=== PATIENT | male | born 1970 | race Hispanic/Latino ===

== ENCOUNTER 2018-05-27 05:29 | Day surgery (SDC) | payer OTHER ==
[2018-05-24 14:32] VITALS: BMI 37.0
--- NOTE | 2018-05-24 14:36 | HP ---
HISTORY OF PRESENT ILLNESS: Sae Cristina is a 47-year-old male patient who resides at [facility] in [place]. The patient has had a vena cava filter placed on 02/23/2015 for DVT, contraindication to anticoagulation, on 03/19/2015 had removal of the filter. The patient had a decompressive laminectomy on 02/19/[address] Ojeda. The patient now has chronic renal failure, and I have been asked to see him regarding placement of a primary fistula. He has had ultrasound vein mapping revealing veins adequate for fistula and we will plan the left arm primary fistula, possibly a Monica. PAST MEDICAL HISTORY: Chronic kidney disease; history of DVT; history of filter, IVC, placed and removed; history of hydronephrosis; diabetes mellitus, type 2; GERD; BPH; dyslipidemia; pulmonary embolism; schizophrenia; bipolar disorder. PAST SURGICAL HISTORY: Tonsillectomy, lumbar surgery, jaw surgery, wrist surgery, right nasal surgery, facial surgery, cardiac catheterization, inferior vena cava filter placed and removed as noted above. HABITS: He has smoked in the past. Alcohol use, none. ALLERGIES: LATEX AND MORPHINE. MEDICATIONS: 1. Atorvastatin 20 mg a day. 2. Claritin daily. 3. Colace daily. 4. Coreg 3.125 mg twice a day. 5. Dulcolax p.r.n. 6. Eliquis 2.5 mg twice a day. 7. Ferrous sulfate. 8. Flomax 0.4 mg a day. 9. Gabapentin 100 mg three times a day. 10. Hydralazine 50 mg twice a day. 11. Lasix 80 mg twice a day. 12. Levemir 15 units subcu daily. 13. Lexapro 10 mg a day. 14. Lisinopril 20 mg a day. 15. Meperidine p.r.n. 16. Mucinex p.r.n. 17. Multivitamins daily. 18. Protonix 40 mg a day. 19. Sodium bicarb 650 mg twice a day. 20. Tessalon Perles p.r.n. 21. Zofran p.r.n. IMAGING: Echocardiogram, October 2015, normal LV function, 55% EF, mild tricuspid, aortic, and mitral valve regurgitations. PHYSICAL EXAMINATION: VITAL SIGNS: 138/70, 86, 99.7 degrees. LUNGS: Clear to auscultation. CARDIAC: Regular rate and rhythm without murmur or gallop. ABDOMEN: Soft and nontender. EXTREMITIES: Unremarkable. He has a Ram catheter in place. He has palpable radial pulses bilaterally. He has vein mapping as noted above. ASSESSMENT/PLAN: 1. The patient is on anticoagulation. We will hold that until his surgery next week. We will plan left arm primary fistula, possible Monica, outpatient, regional TIVA or anesthesia is recommended. Risks and benefits explained, he consents, questions answered. 2. Chronic Ram catheter. 3. History of pulmonary embolism and deep venous thrombosis. Job ID: [id number]
[2018-05-27 06:50] LABS: #Eosinphils 0.2 thou/uL (0.0-0.7); #Lymphocytes 0.8 thou/uL (1.20-3.40); #Monocytes 0.4 thou/uL (0.11-0.59); #Neutrophils 5.6 thou/uL (1.40-6.50); %Basophils 0.7 % (0.0-1.0); %Lymphocytes 11.1 % (21.0-51.0); %Monocytes 6.2 % (0.0-10.0); Mean Corpuscular HGB CONC 32.3 g/dL (32.0-36.0); Mean Corpuscular Hemoglobin 29.6 pg (27.0-31.0); Mean Corpuscular Volume 91.5 fL (78.0-98.0); Mean Platelet Volume 7.6 fL (7.4-10.4); Platelet Count 202 thou/uL (130-400); RBC Distribution Width 16.6 % (11.5-14.5); Red Blood Cell (RBC) Count 3.05 mill/uL (4.70-6.10)
[2018-05-27] MEDS ORDERED: Heparin 5,000 UNITS/ML VIAL ONE (06:50)
[2018-05-27] MEDS ORDERED: Bupivacaine HCl 0.5%/Epinephrine 1:200,000/PF 30 ml Vial ONE (06:50)
[2018-05-27] MEDS ORDERED: Lidocaine 2% PF 5 ML VIAL ONE (06:50)
[2018-05-27 07:06] LABS: Anion Gap 15 mmol/L (10-20); BUN (Urea Nitrogen) 61 mg/dL (8.9-20.6); Calc. Creatinine Clearance 25 mL/min (70-130); Calcium 7.5 mg/dL (7.8-10.44); Carbon Dioxide 19 mmol/L (22-29); Chloride 111 mmol/L (98-107); Estimated GFR-MDRD 10; Glucose 106 mg/dL (70-105); Potassium 4.2 mmol/L (3.5-5.1); Sodium 141 mmol/L (136-145)
[2018-05-27] MEDS ORDERED: Fentanyl 100 MCG/2 ML VIAL ONE (07:15)
[2018-05-27] MEDS ORDERED: Protamine Sulfate 50 MG/5 ML VIAL ONE (08:38)
--- NOTE | 2018-05-27 10:04 | OP ---
DATE OF PROCEDURE: 05/27/2018 PREOPERATIVE DIAGNOSIS: Chronic kidney disease, not yet started dialysis. POSTOPERATIVE DIAGNOSIS: Chronic kidney disease, not yet started dialysis. PROCEDURE PERFORMED: Exploration of left wrist noting cephalic vein to the wrist inadequate for a fistula. Primary arteriovenous fistula left proximal volar forearm outflow primary for anatomic reasons out the cephalic vein calibrated to 4 mm coronary dilator, secondary outflow basilic vein by retrograde filling and retrograde antecubital vein preserved of excellent caliber. ANESTHESIA: Regional TIVA. DESCRIPTION OF PROCEDURE: The patient was taken to the operating room where under intravenous sedation and regional anesthesia, left upper extremity was prepared with ChloraPrep and draped in routine fashion. Ultrasound vein mapping suggested cephalic vein at the wrist might be adequate for a Monica fistula, thus an incision was made carried down to the skin and subcutaneous tissue, and cephalic vein was noted to be small caliber. Incision was closed with continuous suture of 3-0 Monocryl approximating subcutaneous tissue and skin with subdermal 4-0 Monocryl, and Theresa glue was applied. Incision was made in the proximal volar forearm longitudinally carried down to the skin and subcutaneous tissue, identifying excellent caliber cephalic vein. It was dissected free and perforating branch antecubital vein dissected free. Branches were divided between clips, ligated with 4-0 silk ties, and spatulated over branch point. The patient was given 6000 units of heparin intravenously. There was a smaller communicating branch to the basilic vein. It was ligated. For anatomic reasons, primary outflow was the cephalic vein; although, the retrograde filling would communicate with the basilic vein, which was of good caliber, but was not interrogated. Brachial ulnar and proximal radial artery dissected free and after adequate circulation time and heparin, brachial radial and ulnar arteries were clamped with atraumatic vascular clamp. Longitudinal arteriotomy was made sharply, elongated with Lehman scissors for a 2.5 cm anastomosis. Over branch point, the perforating branch antecubital vein was spatulated and continuous suture of 6-0 Prolene was used for the anastomosis. After completing the anastomosis, vascular clamps were released and there was good flow in the cephalic vein outflow interrogated by Doppler. Good hemostasis was noted. The patient was given 25 mg of protamine intravenously by Anesthesia. Subcutaneous tissue was approximated with 3-0 Monocryl, skin with subdermal 4-0 Monocryl, and Theresa glue applied. Job ID: [id number]
[2018-05-27] MEDS ORDERED: Heparin 10,000 UNITS/ 10 ML VIAL ONE (15:20)
[2018-05-27] MEDS ORDERED: PROPOFOL 200 MG/20 ML VIAL ONE (15:20)
== END 2018-05-27 11:09 | disposition home or self-care (01) ==
LOC: SDC 05:29
PROVIDERS: ATTEND Specialist
PROC: 03180ZD Bypass Left Brachial Artery to Upper Arm Vein, Open Approach (ICD-10-PCS; principal; 2018-05-27)
DX: I12.9 Hypertensive chronic kidney disease with stage 1 through stage 4 chronic kidney disease, or unspecified chronic kidney disease (principal); E11.22 Type 2 diabetes mellitus with diabetic chronic kidney disease; N18.9 Chronic kidney disease, unspecified; F31.9 Bipolar disorder, unspecified; N31.9 Neuromuscular dysfunction of bladder, unspecified; K21.9 Gastro-esophageal reflux disease without esophagitis; E78.5 Hyperlipidemia, unspecified; F20.9 Schizophrenia, unspecified; Z86.718 Personal history of other venous thrombosis and embolism; Z87.891 Personal history of nicotine dependence; Z79.01 Long term (current) use of anticoagulants; Z79.4 Long term (current) use of insulin; Z79.899 Other long term (current) drug therapy; Z88.5 Allergy status to narcotic agent; Z88.6 Allergy status to analgesic agent; Z88.8 Allergy status to other drugs, medicaments and biological substances; Z91.018 Allergy to other foods; Z91.040 Latex allergy status; Z95.818 Presence of other cardiac implants and grafts
CPT/HCPCS: 80048; 85025; J0670; J1644; J2001; J2704; J2720; J3010

== ENCOUNTER 2018-06-07 17:41 | Inpatient (IN) | payer OTHER ==
[2018-06-07 18:39] LABS: #Eosinphils 0.2 thou/uL (0.0-0.7); #Lymphocytes 0.7 thou/uL (1.20-3.40); #Monocytes 0.6 thou/uL (0.11-0.59); #Neutrophils 5.2 thou/uL (1.40-6.50); %Basophils 0.6 % (0.0-1.0); %Eosinophils 2.4 % (0.0-10.0); %Lymphocytes 10.6 % (21.0-51.0); %Monocytes 9.5 % (0.0-10.0); %Neutrophils 76.8 % (42.0-75.0); Hemoglobin 8.7 g/dL (14.0-18.0); Mean Corpuscular HGB CONC 31.9 g/dL (32.0-36.0); Mean Platelet Volume 7.8 fL (7.4-10.4); Platelet Count 236 thou/uL (130-400); RBC Distribution Width 17.4 % (11.5-14.5); Red Blood Cell (RBC) Count 2.91 mill/uL (4.70-6.10); White Blood Cell (WBC) Count 6.8 thou/uL (4.8-10.8)
[2018-06-07 18:51] LABS: ALT (SGPT) 7 U/L (8-55); AST (SGOT) 13 U/L (5-34); Albumin 3.2 g/dL (3.5-5.0); Alkaline Phosphatase 238 U/L (40-150); Anion Gap 20 mmol/L (10-20); BUN (Urea Nitrogen) 100 mg/dL (8.9-20.6); Bilirubin, Total 0.5 mg/dL (0.2-1.2); Calc. Creatinine Clearance 0 mL/min (70-130); Calcium 7.3 mg/dL (7.8-10.44); Carbon Dioxide 13 mmol/L (22-29); Chloride 109 mmol/L (98-107); Estimated GFR-MDRD 6; Globulin 3.5 g/dL (2.4-3.5); Glucose 146 mg/dL (70-105); Lipase 32 U/L (8-78); Potassium 6.1 mmol/L (3.5-5.1); Protein, Total 6.7 g/dL (6.0-8.3); Sodium 136 mmol/L (136-145)
[2018-06-07 19:16] LABS: CKMB 20.9 ng/mL (0-6.6)
[2018-06-07] MEDS ORDERED: Calcium Chloride 1 GM/10 ML Abboject SYRINGE ONE (19:43)
[2018-06-07] MEDS ORDERED: Dextrose 50% Abboject 50 ML SYRINGE ONE (19:43)
[2018-06-07] MEDS ORDERED: Sodium Bicarb 50 MEQ/50 ML VIAL ONE (19:43)
[2018-06-07] MEDS ORDERED: Insulin Regular 300 UNITS/3 ML VIAL ONE (19:44)
[2018-06-07] MEDS ORDERED: Sodium Bicarbonate 150 MEQ in Dextrose 5% in Water 1,000 ML IV SCH (19:45)
--- NOTE | 2018-06-07 19:48 | RAD ---
CHEST ONE VIEW: 06/07/18 HISTORY: Chest pain. COMPARISON: 02/03/18. FINDINGS: The cardiac silhouette is magnified by projection. Pulmonary vasculature is engorged. Mediastinum is midline. No lobar consolidation or evidence of pneumothorax. religious assistant leads overlie the chest. IMPRESSION: Pulmonary vascular congestion, similar in appearance to the previous exam. POS: BST
[2018-06-07] MEDS ORDERED: Sodium Bicarbonate 150 MEQ in Dextrose 5% in Water 1,000 ML IVP SCH (22:15)
--- NOTE | 2018-06-07 22:40 | CON ---
DATE OF CONSULTATION: 06/07/2018 REASON FOR CONSULTATION: Hyperkalemia. HISTORY OF PRESENTING ILLNESS: This is a very pleasant 48-year-old gentleman with diabetes mellitus, history of CKD and progressive chronic kidney disease stage 5 with a history of dialysis a few years ago, presented to the hospital with abdominal pain, nausea, and vomiting. The patient was noted to have hyperkalemia and a potassium of 6.1, so I was consulted. His BUN was 100 swelling and had generalized swelling. The patient can give no further history. PAST MEDICAL HISTORY: Significant for hypertension, anemia, AV fistula, tunneled dialysis catheter, history of Charcot-Oralia tooth disease, history of obstructive uropathy, history of bipolar disorder, history of cardiac catheterization, history of DVT, history of GERD, history of pulmonary embolism, history of tonsillectomy , lumbar spine surgery, jaw surgery, wrist surgery, cardiac catheterization, inferior vena cava filter. SOCIAL HISTORY: No alcohol or drug use. FAMILY HISTORY: Negative for ESRD. ALLERGIES: REVIEWED. HOME MEDICATIONS: Reviewed. REVIEW OF SYSTEMS: Unobtainable. PHYSICAL EXAMINATION: GENERAL: The patient is awake, alert. VITAL SIGNS: Afebrile, pulse 75, breathing 16, blood pressure 135/90. GENERAL APPEARANCE AND MENTAL STATUS: Fair. HEAD/NECK: Normocephalic. Atraumatic. EYES: EOMI. No deformity. EARS: Clear. No ulcers. NOSE: Intact. No lesions. MOUTH: Clear. No discharge. THROAT: Clear. No exudate. LUNGS: Clear. No crackles. CARDIAC: S1, S2. No rub. ABDOMEN: Benign. Bowel sounds positive. GENITALIA/RECTUM: Ram absent. BACK/EXTREMITIES: Lower extremities have edema. NEUROLOGICAL: Alert and motor intact. SKIN: LYMPHATICS: LABORATORY DATA: Labs show potassium 6.1, bicarb 13. IMPRESSION AND PLAN: 1. Chronic kidney disease stage 6. We will plan urgent hemodialysis. 2. Hypertension, stable. 3. Anemia. No indication for transfusion, Epogen. 4. Metabolic acidosis. Plan dialysis. 5. Hyperkalemia. Plan dialysis. Risks versus benefits of dialysis were discussed and the dialysis nurse was called. Job ID: [id number] [facility]
[2018-06-07 23:19] LABS: HBSAg Index 0.18 S/CO (0-0.99); Hep B Surf Ag Non-Reactive S/CO (NonReactive)
--- NOTE | 2018-06-08 11:47 | PRG ---
DATE OF SERVICE: 06/08/2018 SUBJECTIVE: A 48-year-old gentleman being seen for end-stage renal disease. The patient denies any nausea, vomiting, or chest pain. OBJECTIVE: CONSTITUTIONAL: The patient is awake and alert. VITAL SIGNS: Afebrile. Pulse 84, breathing 16, blood pressure 158/88. GENERAL APPEARANCE AND MENTAL STATUS: Fair. HEAD/NECK: Normocephalic. Atraumatic. EYES: EOMI. No deformity. EARS: Clear. No ulcers. NOSE: Intact. No lesions. MOUTH: Clear. No discharge. THROAT: Clear. No exudate. LUNGS: Clear. No crackles. CARDIAC: S1, S2. No rub. ABDOMEN: Benign. Bowel sounds positive. GENITALIA/RECTUM: Ram absent. BACK/EXTREMITIES: Edema 0+. NEUROLOGICAL: Alert and motor intact. SKIN: LYMPHATICS: LABORATORY DATA: Labs show hemoglobin of 8.7. Creatinine is pending. ASSESSMENT: 1. Stage 6 chronic kidney disease, continue dialysis. 2. Hypertension, stable. 3. Anemia, stable. 4. Hyperkalemia. Check potassium. Job ID: [id number]
[2018-06-08] MEDS ORDERED: Heparin 10,000 UNITS/ 10 ML VIAL ONE ×2 (15:00)
[2018-06-08] MEDS ORDERED: Dextrose 5% in Water 1,000 ML IV PRN (15:38)
[2018-06-08] MEDS ORDERED: Dextrose 50% Abboject 50 ML SYRINGE IVP PRN (15:38)
[2018-06-08 16:04] LABS: Hemoglobin 8.4 g/dL (14.0-18.0)
[2018-06-08 16:25] LABS: ALT (SGPT) 7 U/L (8-55); AST (SGOT) 11 U/L (5-34); Alkaline Phosphatase 212 U/L (40-150); Anion Gap 20 mmol/L (10-20); BUN (Urea Nitrogen) 81 mg/dL (8.9-20.6); Bilirubin, Total 0.4 mg/dL (0.2-1.2); Calc. Creatinine Clearance 22 mL/min (70-130); Calcium 7.5 mg/dL (7.8-10.44); Carbon Dioxide 20 mmol/L (22-29); Chloride 104 mmol/L (98-107); Estimated GFR-MDRD 7; Globulin 3.6 g/dL (2.4-3.5); Glucose 214 mg/dL (70-105); Potassium 4.5 mmol/L (3.5-5.1); Protein, Total 6.6 g/dL (6.0-8.3); Sodium 139 mmol/L (136-145)
[2018-06-08 18:46] LABS: Troponin I 0.054 ng/mL (< 0.028)
[2018-06-08] MEDS ORDERED: Acetaminophen/Codeine 30-300mg Tablet PO PRN ×2 (20:02)
[2018-06-08] MEDS ORDERED: Acetaminophen 500 MG TAB PO PRN (20:04)
[2018-06-08] MEDS ORDERED: Bisacodyl 5 MG TAB PO PRN (20:09)
[2018-06-08] MEDS ORDERED: Benzonatate 100 MG CAP PO PRN (20:09)
[2018-06-08] MEDS ORDERED: Fluticasone Propionate Nasal Spray 16 gm Bottle NASAL PRN (20:12)
[2018-06-08] MEDS ORDERED: Guaifenesin DM 100-10/5 ML UDCUP PO PRN (20:13)
[2018-06-08] MEDS ORDERED: guaiFENesin/DM ER PO PRN (20:13)
[2018-06-08] MEDS ORDERED: Loperamide HCl 2 MG CAP PO PRN (20:21)
[2018-06-08] MEDS ORDERED: MENTHOL (BIOFREEZE 4% GEL) TOP PRN (20:22)
[2018-06-08] MEDS ORDERED: Ondansetron ODT 4 MG TAB PO PRN (20:24)
[2018-06-08] MEDS ORDERED: Polyethylene Glycol 3350 17 GM Packet PO PRN (20:25)
--- NOTE | 2018-06-08 20:40 | HP ---
CHIEF COMPLAINT: Chest pain. HISTORY OF PRESENT ILLNESS: Mr. Cristina is a 48-year-old male with past medical history of chronic kidney disease stage 5 as well as diabetes mellitus poorly controlled and hypertension, who was sent from the correction because of chest pain. The patient is complaining of pain in the retrosternal area, sharp in nature, not associated with any diaphoresis. No nausea or vomiting. No shortness of breath. His pain lasted a few minutes, so he was sent to the emergency room for evaluation. By the time he was in the ER, pain resolved. In fact, the chest wall was tender and he has evaluation. He was found to have worsening of his renal function with hyperkalemia. The patient also complained of abdominal discomfort in the correction, but in the ER, it got resolved. The patient received D5W, insulin, calcium chloride, and sodium bicarbonate for his hyperkalemia. The patient had dialysis catheter placed recently for future hemodialysis. The patient is admitted for further evaluation for possible hemodialysis. PAST MEDICAL HISTORY: 1. Diabetes mellitus. 2. Hyperlipidemia. 3. End-stage renal disease. 4. History of DVT. 5. Gastroesophageal reflux disease. 6. Benign prostatic hypertrophy. 7. History of pulmonary embolism. 8. History of pancreatitis. 9. Schizophrenia, bipolar. PAST SURGICAL HISTORY: Status post tonsillectomy, status post lumbar spinal surgery, status post jaw surgery, status post cardiac cath. CURRENT MEDICATIONS: 1. Eliquis 2.5 mg b.i.d. 2. Dulcolax p.r.n. 3. Tylenol No. 3 one q.i.d. p.r.n. 4. Lipitor 20 mg daily. 5. Tessalon Perles p.r.n. t.i.d. 6. Lexapro 10 mg daily. 7. Ferrous sulfate 325 mg daily. 8. Flonase nasal spray daily. 9. Lasix 80 b.i.d. 10. Gabapentin 100 mg t.i.d. 11. Mucinex b.i.d. 12. Humalog insulin sliding scale. 13. Hydralazine 50 mg t.i.d. 14. Levemir insulin 15 units at bedtime. 15. Floranex two tablets b.i.d. 16. Lisinopril 20 mg daily. 17. Claritin daily. 18. Imodium p.r.n. 19. Zofran p.r.n. 20. Protonix 40 mg daily. 21. Multivitamin one daily. 22. MiraLAX 17 g daily. 23. Seroquel 50 mg b.i.d. 24. Simethicone 80 mg t.i.d. 25. Sodium bicarbonate 650 b.i.d. 26. Carafate 1 g b.i.d. 27. Flomax 0.4 mg daily. ALLERGIES: IBUPROFEN, LATEX, METFORMIN, AND MORPHINE. FAMILY HISTORY: Nothing significant. SOCIAL HISTORY: The patient lives in [facility]. History of alcohol intake. History of polysubstance abuse in the past. Smokes about half a pack daily. REVIEW OF SYSTEMS: CARDIOVASCULAR: Has chest pain. No shortness of breath. RESPIRATORY: No fever or cough. GASTROINTESTINAL: No nausea or vomiting. No abdominal pain. Has abdominal discomfort. CENTRAL NERVOUS SYSTEM: No headache, no dizziness. PHYSICAL EXAMINATION: GENERAL: The patient is alert, awake, oriented x3. VITAL SIGNS: Temperature 98, pulse is 85, respiratory rate 20, and blood pressure 140/80. HEENT: Head is normocephalic and atraumatic. Pupils are equal and reactive. Nasopharynx is pale and dry. Hard and soft palpate, no lesions. SKIN: Turgor decreased. NECK: Supple. No JVD. LUNGS: Bilateral air entry with no rales and no rhonchi. HEART: S1 and S2 regular. ABDOMEN: Mildly distended, but soft and nontender. No organomegaly. Bowel sounds are present. RECTAL: No symptoms. CENTRAL NERVOUS SYSTEM: No focal deficits. LABORATORY DATA: CBC shows WBC 6.8, hemoglobin 8.7, hematocrit 27, and platelets 236. Metabolic panel; sodium 136, potassium 6, chloride 109, CO2 of 13, BUN 100 , creatinine 9.4, glucose 146. CK-MB 20, troponin I 0.045. BNP 1005. IMAGING STUDIES: Chest x-ray shows mild pulmonary vascular congestion. Heart acute. EKG showed normal sinus rhythm, no acute ST-T changes seen. ASSESSMENT: 1. Chest pain, rule out myocardial infarction. 2. Hyperkalemia. 3. End-stage renal disease. 4. Hypertension. 5. Diabetes mellitus. 6. Hyperlipidemia. 7. History of deep venous thrombosis. 8. History of pulmonary embolism. PLAN: 1. Vital signs q.4 hours. 2. Activities, as tolerated. 3. Allergies, multiple include ibuprofen, latex, metformin. 4. Diet, renal and ADA. 5. Continue correction medications. 6. Accu-Cheks before meals and at bedtime. Sliding scale mild with regular insulin. 7. Troponin I q.6 hours x2. 8. Nephrology consult for possible hemodialysis. Job ID: [id number] [facility]TD[facility]
[2018-06-08] MEDS: Acetaminophen 500 MG TAB PO PRN (21:15)
[2018-06-08] MEDS: Atorvastatin Calcium 20 MG TAB PO SCH (21:16)
[2018-06-08] MEDS: Gabapentin 100 MG CAP PO SCH (21:16)
[2018-06-08] MEDS: Docusate 100 MG CAP PO SCH (21:16)
[2018-06-08] MEDS: Carvedilol 3.125 MG TAB PO SCH (21:16)
[2018-06-08] MEDS: hydrALAZINE 25 MG TAB PO SCH (21:16)
[2018-06-08] MEDS: Lactinex Tablet PO SCH (21:18)
[2018-06-08] MEDS: Sucralfate 1 GM TAB PO SCH (21:18)
[2018-06-08] MEDS: Tamsulosin HCl 0.4 MG CAP PO SCH (21:18)
[2018-06-08] MEDS: Simethicone Chewable 80 MG TAB PO SCH (21:18)
[2018-06-08] MEDS: Sodium Bicarbonate Tab 325 MG TAB PO SCH (21:18)
[2018-06-08] MEDS: Apixaban 2.5 MG TAB PO SCH (21:50)
[2018-06-08] MEDS: Insulin Glargine 15 UNITS in Pre-Filled Syringe 1 EACH SC SCH (21:50)
[2018-06-09 00:12] LABS: Troponin I 0.055 ng/mL (< 0.028)
[2018-06-09 06:11] LABS: #Eosinphils 0.2 thou/uL (0.0-0.7); #Monocytes 0.7 thou/uL (0.11-0.59); #Neutrophils 3.9 thou/uL (1.40-6.50); %Basophils 0.8 % (0.0-1.0); %Eosinophils 3.9 % (0.0-10.0); %Lymphocytes 17.6 % (21.0-51.0); %Monocytes 11.9 % (0.0-10.0); %Neutrophils 65.9 % (42.0-75.0); Hemoglobin 8.3 g/dL (14.0-18.0); Mean Corpuscular HGB CONC 32.7 g/dL (32.0-36.0); Mean Corpuscular Hemoglobin 30.6 pg (27.0-31.0); Mean Corpuscular Volume 93.6 fL (78.0-98.0); Mean Platelet Volume 7.7 fL (7.4-10.4); Platelet Count 217 thou/uL (130-400); RBC Distribution Width 17.1 % (11.5-14.5); Red Blood Cell (RBC) Count 2.71 mill/uL (4.70-6.10); White Blood Cell (WBC) Count 5.8 thou/uL (4.8-10.8)
[2018-06-09 06:18] LABS: Hemoglobin A1c 7.8 % (4.0-6.0)
[2018-06-09 06:30] LABS: ALT (SGPT) Less than 7 U/L (8-55); AST (SGOT) 14 U/L (5-34); Albumin 2.8 g/dL (3.5-5.0); Alkaline Phosphatase 191 U/L (40-150); Anion Gap 18 mmol/L (10-20); BUN (Urea Nitrogen) 62 mg/dL (8.9-20.6); Bilirubin, Total 0.4 mg/dL (0.2-1.2); Calc. Creatinine Clearance 27 mL/min (70-130); Calcium 7.5 mg/dL (7.8-10.44); Carbon Dioxide 19 mmol/L (22-29); Chloride 105 mmol/L (98-107); Estimated GFR-MDRD 9; Globulin 3.5 g/dL (2.4-3.5); Glucose 129 mg/dL (70-105); Potassium 3.9 mmol/L (3.5-5.1); Protein, Total 6.3 g/dL (6.0-8.3); Sodium 138 mmol/L (136-145)
[2018-06-09] MEDS ORDERED: Heparin 1,000 UNITS/ML VIAL ONE (11:11)
--- NOTE | 2018-06-09 11:40 | PRG ---
DATE OF SERVICE: 06/09/2018 SUBJECTIVE: This is a 48-year-old gentleman being seen for end-stage kidney disease. The patient denied nausea, vomiting, or chest pain. OBJECTIVE: CONSTITUTIONAL: On examination, the patient is awake, alert. VITAL SIGNS: Afebrile. Pulse 75, breathing 16, blood pressure 137/81. GENERAL APPEARANCE AND MENTAL STATUS: Fair. HEAD/NECK: Normocephalic. Atraumatic. EYES: EOMI. No deformity. EARS: Clear. No ulcers. NOSE: Intact. No lesions. MOUTH: Clear. No discharge. THROAT: Clear. No exudate. LUNGS: Clear. No crackles. CARDIAC: S1, S2. No rub. ABDOMEN: Benign. Bowel sounds positive. GENITALIA/RECTUM: Ram absent. BACK/EXTREMITIES: Lower extremities have edema. NEUROLOGICAL: Alert and motor intact. SKIN: LYMPHATICS: LABORATORY DATA: Potassium is 3.9. ASSESSMENT AND PLAN: 1. Stage 6 chronic kidney disease, plan dialysis. 2. Hyperkalemia. Plan dialysis. 3. Anemia, stable. 4. Edema. 5. Congestive heart failure. Plan dialysis. Job ID: [id number]
[2018-06-09] MEDS: Gabapentin 100 MG CAP PO SCH ×3 (12:13→21:20)
[2018-06-09] MEDS: Docusate 100 MG CAP PO SCH ×2 (12:13→21:20)
[2018-06-09] MEDS: Simethicone Chewable 80 MG TAB PO SCH ×3 (12:13→21:19)
[2018-06-09] MEDS: Loratadine 10 MG TAB PO SCH (16:18)
[2018-06-09] MEDS: Escitalopram Oxalate 10 mg Tablet PO SCH (16:18)
[2018-06-09] MEDS: Multivitamin W/ Minerals 1 TAB PO SCH (16:18)
[2018-06-09] MEDS: Lisinopril 20 MG TAB PO SCH (16:18)
[2018-06-09] MEDS: Ferrous Sulfate 325 MG TAB PO SCH (16:18)
[2018-06-09] MEDS: Carvedilol 3.125 MG TAB PO SCH ×2 (16:30→21:20)
[2018-06-09] MEDS: hydrALAZINE 25 MG TAB PO SCH ×2 (16:30→21:19)
[2018-06-09] MEDS: Sodium Bicarbonate Tab 325 MG TAB PO SCH ×2 (16:30→21:19)
[2018-06-09] MEDS: Apixaban 2.5 MG TAB PO SCH ×2 (16:30→21:18)
[2018-06-09] MEDS: Sucralfate 1 GM TAB PO SCH ×2 (16:30→22:28)
[2018-06-09] MEDS: Lactinex Tablet PO SCH ×2 (16:30→21:19)
[2018-06-09] MEDS: Atorvastatin Calcium 20 MG TAB PO SCH (21:19)
[2018-06-09] MEDS: Milk Of Magnesia 30 ML UDCUP PO SCH (21:20)
[2018-06-09] MEDS: Tamsulosin HCl 0.4 MG CAP PO SCH (21:20)
[2018-06-09] MEDS: Insulin Glargine 15 UNITS in Pre-Filled Syringe 1 EACH SC SCH (21:24)
[2018-06-09] MEDS: Acetaminophen 500 MG TAB PO PRN (22:33)
[2018-06-10] MEDS: Lactinex Tablet PO SCH ×2 (07:50→20:06)
[2018-06-10] MEDS: Carvedilol 3.125 MG TAB PO SCH ×2 (07:51→20:04)
[2018-06-10] MEDS: Escitalopram Oxalate 10 mg Tablet PO SCH (07:51)
[2018-06-10] MEDS: hydrALAZINE 25 MG TAB PO SCH ×2 (07:51→20:04)
[2018-06-10] MEDS: Ferrous Sulfate 325 MG TAB PO SCH (07:51)
[2018-06-10] MEDS: Simethicone Chewable 80 MG TAB PO SCH ×3 (07:52→20:06)
[2018-06-10] MEDS: Gabapentin 100 MG CAP PO SCH ×3 (07:52→20:04)
[2018-06-10] MEDS: Sodium Bicarbonate Tab 325 MG TAB PO SCH ×2 (07:52→20:07)
[2018-06-10] MEDS: Multivitamin W/ Minerals 1 TAB PO SCH (07:53)
[2018-06-10] MEDS: Docusate 100 MG CAP PO SCH ×2 (07:53→20:04)
[2018-06-10] MEDS: Apixaban 2.5 MG TAB PO SCH ×2 (07:53→20:04)
[2018-06-10] MEDS: Loratadine 10 MG TAB PO SCH (07:55)
[2018-06-10] MEDS: Sucralfate 1 GM TAB PO SCH ×2 (07:55→20:07)
[2018-06-10] MEDS: Milk Of Magnesia 30 ML UDCUP PO SCH ×2 (07:55→20:06)
[2018-06-10] MEDS: Lisinopril 20 MG TAB PO SCH (07:55)
--- NOTE | 2018-06-10 09:56 | PRG ---
DATE OF SERVICE: 06/10/2018 SUBJECTIVE: A 48-year-old gentleman being seen for end-stage renal disease. The patient denies any nausea, vomiting, or chest pain. OBJECTIVE: GENERAL: The patient is awake and alert. VITAL SIGNS: Afebrile, pulse 76, breathing 16, blood pressure 125/82. GENERAL APPEARANCE AND MENTAL STATUS: Fair. HEAD/NECK: Normocephalic. Atraumatic. EYES: EOMI. No deformity. EARS: Clear. No ulcers. NOSE: Intact. No lesions. MOUTH: Clear. No discharge. THROAT: Clear. No exudate. LUNGS: Clear. No crackles. CARDIAC: S1, S2. No rub. ABDOMEN: Benign. Bowel sounds positive. GENITALIA/RECTUM: Ram absent. BACK/EXTREMITIES: Edema 0+. NEUROLOGICAL: Alert and motor intact. LABORATORY DATA: Hemoglobin 8.3. ASSESSMENT AND PLAN: 1. Stage 6 chronic kidney disease, continue hemodialysis. 2. Hypertension, stable. 3. Anemia. Continue Epogen. 4. Congestive heart failure. Plan diuresis. Job ID: [id number]
[2018-06-10] MEDS: Atorvastatin Calcium 20 MG TAB PO SCH (20:04)
[2018-06-10] MEDS: Insulin Glargine 15 UNITS in Pre-Filled Syringe 1 EACH SC SCH (20:05)
[2018-06-10] MEDS: Tamsulosin HCl 0.4 MG CAP PO SCH (20:07)
[2018-06-11] MEDS: Insulin Regular 300 UNITS/3 ML VIAL SC PRN ×3 (06:03→20:20)
[2018-06-11] MEDS: Milk Of Magnesia 30 ML UDCUP PO SCH ×2 (09:51→20:18)
[2018-06-11] MEDS: Simethicone Chewable 80 MG TAB PO SCH ×3 (09:51→20:18)
[2018-06-11] MEDS: Apixaban 2.5 MG TAB PO SCH ×2 (09:52→20:19)
[2018-06-11] MEDS: Sodium Bicarbonate Tab 325 MG TAB PO SCH ×2 (09:52→20:17)
[2018-06-11] MEDS: Lisinopril 20 MG TAB PO SCH (09:52)
[2018-06-11] MEDS: Lactinex Tablet PO SCH ×2 (09:52→20:17)
[2018-06-11] MEDS: Gabapentin 100 MG CAP PO SCH ×3 (09:52→20:18)
[2018-06-11] MEDS: Docusate 100 MG CAP PO SCH ×2 (09:53→20:18)
[2018-06-11] MEDS: Escitalopram Oxalate 10 mg Tablet PO SCH (09:53)
[2018-06-11] MEDS: Carvedilol 3.125 MG TAB PO SCH ×2 (09:53→20:18)
[2018-06-11] MEDS: Multivitamin W/ Minerals 1 TAB PO SCH (09:53)
[2018-06-11] MEDS: Sucralfate 1 GM TAB PO SCH ×2 (09:53→20:19)
[2018-06-11] MEDS: Ferrous Sulfate 325 MG TAB PO SCH (09:53)
[2018-06-11] MEDS: hydrALAZINE 25 MG TAB PO SCH ×2 (09:54→20:17)
[2018-06-11] MEDS: Loratadine 10 MG TAB PO SCH (09:54)
[2018-06-11] MEDS ORDERED: Epoetin (ESRD) 10,000 UNITS/ML VIAL SC SCH (11:15)
--- NOTE | 2018-06-11 11:48 | PRG ---
DATE OF SERVICE: 06/11/2018 SUBJECTIVE: This is a 48-year-old gentleman, being seen for end-stage kidney disease. The patient denied nausea, vomiting, or chest pain. OBJECTIVE: CONSTITUTIONAL: On examination, the patient is awake, alert. VITAL SIGNS: Afebrile, pulse , breathing 16, blood pressure 147/82. GENERAL APPEARANCE AND MENTAL STATUS: Fair. HEAD/NECK: Normocephalic. Atraumatic. EYES: EOMI. No deformity. EARS: Clear. No ulcers. NOSE: Intact. No lesions. MOUTH: Clear. No discharge. THROAT: Clear. No exudate. LUNGS: Clear. No crackles. CARDIAC: S1, S2. No rub. ABDOMEN: Benign. Bowel sounds positive. GENITALIA/RECTUM: Ram absent. BACK/EXTREMITIES: Edema 0+. NEUROLOGICAL: Alert and motor intact. SKIN: LYMPHATICS: LABORATORY DATA: Reviewed. ASSESSMENT AND PLAN: 1. Stage 6 chronic kidney disease. Continue dialysis . 2. Hypertension, stable. 3. Anemia, stable. 4. Medications based on GFR appropriate. Job ID: [id number]
[2018-06-11 15:47] LABS: #Eosinphils 0.1 thou/uL (0.0-0.7); #Lymphocytes 0.9 thou/uL (1.20-3.40); #Monocytes 0.6 thou/uL (0.11-0.59); #Neutrophils 5.3 thou/uL (1.40-6.50); %Basophils 0.3 % (0.0-1.0); %Eosinophils 2.1 % (0.0-10.0); %Lymphocytes 13.1 % (21.0-51.0); %Monocytes 8.5 % (0.0-10.0); Hemoglobin 8.5 g/dL (14.0-18.0); Mean Corpuscular HGB CONC 32.2 g/dL (32.0-36.0); Mean Corpuscular Hemoglobin 29.8 pg (27.0-31.0); Mean Corpuscular Volume 92.7 fL (78.0-98.0); Platelet Count 202 thou/uL (130-400); RBC Distribution Width 16.7 % (11.5-14.5); Red Blood Cell (RBC) Count 2.85 mill/uL (4.70-6.10); White Blood Cell (WBC) Count 6.9 thou/uL (4.8-10.8)
[2018-06-11 16:03] LABS: Anion Gap 12 mmol/L (10-20); BUN (Urea Nitrogen) 33 mg/dL (8.9-20.6); Calc. Creatinine Clearance 36 mL/min (70-130); Calcium 7.8 mg/dL (7.8-10.44); Carbon Dioxide 30 mmol/L (22-29); Chloride 100 mmol/L (98-107); Estimated GFR-MDRD 14; Glucose 171 mg/dL (70-105); Potassium 3.7 mmol/L (3.5-5.1); Sodium 138 mmol/L (136-145)
[2018-06-11] MEDS: Atorvastatin Calcium 20 MG TAB PO SCH (20:18)
[2018-06-11] MEDS: Tamsulosin HCl 0.4 MG CAP PO SCH (20:18)
[2018-06-11] MEDS: Insulin Glargine 15 UNITS in Pre-Filled Syringe 1 EACH SC SCH (20:19)
[2018-06-12] MEDS: Multivitamin W/ Minerals 1 TAB PO SCH (09:20)
[2018-06-12] MEDS: Milk Of Magnesia 30 ML UDCUP PO SCH ×2 (09:20→20:52)
[2018-06-12] MEDS: Gabapentin 100 MG CAP PO SCH ×3 (09:20→20:48)
[2018-06-12] MEDS: hydrALAZINE 25 MG TAB PO SCH ×2 (09:20→20:48)
[2018-06-12] MEDS: Lactinex Tablet PO SCH ×2 (09:21→20:47)
[2018-06-12] MEDS: Sodium Bicarbonate Tab 325 MG TAB PO SCH ×2 (09:21→20:47)
[2018-06-12] MEDS: Carvedilol 3.125 MG TAB PO SCH ×2 (09:22→20:48)
[2018-06-12] MEDS: Sucralfate 1 GM TAB PO SCH ×2 (09:22→20:46)
[2018-06-12] MEDS: Apixaban 2.5 MG TAB PO SCH ×2 (09:23→20:46)
[2018-06-12] MEDS: Simethicone Chewable 80 MG TAB PO SCH ×3 (09:23→20:52)
[2018-06-12] MEDS: Escitalopram Oxalate 10 mg Tablet PO SCH (09:23)
[2018-06-12] MEDS: Docusate 100 MG CAP PO SCH ×2 (09:23→20:52)
[2018-06-12] MEDS: Loratadine 10 MG TAB PO SCH (09:23)
[2018-06-12] MEDS: Ferrous Sulfate 325 MG TAB PO SCH (09:23)
[2018-06-12] MEDS: Lisinopril 20 MG TAB PO SCH (09:23)
--- NOTE | 2018-06-12 11:49 | PRG ---
DATE OF SERVICE: 06/12/2018 SUBJECTIVE: Patient was seen and examined at bedside and overnight events noted. Patient denies any shortness of breath or chest pain or palpitation. No history of nausea or vomiting or diarrhea or fever or chills or cramps. OBJECTIVE: GENERAL: This is a well-built male, in no apparent distress. VITAL SIGNS: Temperature 99.3. Heart rate 84. Respiratory rate 20. Blood pressure 148/85. HEENT: Atraumatic, normocephalic. Oral mucosa is moist NECK: Supple. CARDIOVASCULAR: S1, S2 heard. Rate and rhythm regular. RESPIRATORY: Clear to auscultation. GASTROINTESTINAL: Abdomen is soft. MUSCULOSKELETAL: No tenderness. No edema. DERMATOLOGIC: No skin rash. NEUROLOGIC: Alert and awake and oriented X3. No focal neurologic deficits. Moving all the extremities. PSYCHIATRIC: Mood and affect normal. LABORATORY DATA: No labs done today. ASSESSMENT AND PLAN: 1. End-stage renal disease. Continue on hemodialysis as tolerated. Follow with Case Management. 2. Hypertension. 3. Anemia. 4. Edema. Plan is to continue dialysis as tolerated. Job ID: [id number]
[2018-06-12] MEDS: Insulin Regular 300 UNITS/3 ML VIAL SC PRN ×3 (13:59→20:54)
[2018-06-12] MEDS: Tamsulosin HCl 0.4 MG CAP PO SCH (20:46)
[2018-06-12] MEDS: Atorvastatin Calcium 20 MG TAB PO SCH (20:48)
[2018-06-12] MEDS: Insulin Glargine 15 UNITS in Pre-Filled Syringe 1 EACH SC SCH (20:53)
[2018-06-13 05:46] LABS: Anion Gap 12 mmol/L (10-20); BUN (Urea Nitrogen) 37 mg/dL (8.9-20.6); Calc. Creatinine Clearance 32 mL/min (70-130); Calcium 7.6 mg/dL (7.8-10.44); Carbon Dioxide 29 mmol/L (22-29); Chloride 100 mmol/L (98-107); Estimated GFR-MDRD 13; Glucose 147 mg/dL (70-105); Potassium 4.2 mmol/L (3.5-5.1); Sodium 137 mmol/L (136-145)
[2018-06-13] MEDS: Insulin Regular 300 UNITS/3 ML VIAL SC PRN ×2 (06:10→21:10)
[2018-06-13] MEDS: Lisinopril 20 MG TAB PO SCH (07:50)
[2018-06-13] MEDS: Gabapentin 100 MG CAP PO SCH ×3 (07:50→21:08)
[2018-06-13] MEDS: Docusate 100 MG CAP PO SCH ×2 (07:51→21:20)
[2018-06-13] MEDS: Carvedilol 3.125 MG TAB PO SCH ×2 (07:51→21:20)
[2018-06-13] MEDS: Ferrous Sulfate 325 MG TAB PO SCH (07:51)
[2018-06-13] MEDS: Loratadine 10 MG TAB PO SCH (07:51)
[2018-06-13] MEDS: Lactinex Tablet PO SCH ×2 (07:51→21:07)
[2018-06-13] MEDS: Escitalopram Oxalate 10 mg Tablet PO SCH (07:51)
[2018-06-13] MEDS: hydrALAZINE 25 MG TAB PO SCH ×2 (07:52→21:05)
[2018-06-13] MEDS: Sodium Bicarbonate Tab 325 MG TAB PO SCH ×2 (07:52→21:06)
[2018-06-13] MEDS: Simethicone Chewable 80 MG TAB PO SCH ×3 (07:52→21:07)
[2018-06-13] MEDS: Multivitamin W/ Minerals 1 TAB PO SCH (07:52)
[2018-06-13] MEDS: Apixaban 2.5 MG TAB PO SCH ×2 (07:53→21:09)
[2018-06-13] MEDS: Milk Of Magnesia 30 ML UDCUP PO SCH ×2 (07:53→21:20)
[2018-06-13] MEDS: Sucralfate 1 GM TAB PO SCH ×2 (07:53→21:09)
--- NOTE | 2018-06-13 10:51 | PRG ---
DATE OF SERVICE: 06/13/2018 SUBJECTIVE: Patient was seen and examined at bedside and overnight events noted. Patient denies any shortness of breath or chest pain or palpitation. No history of nausea or vomiting or diarrhea or fever or chills or cramps. OBJECTIVE: GENERAL: This is a well-built male in no apparent distress. VITAL SIGNS: Temperature 98.7. Pulse 90. Respirations 22. Blood pressure 131/80. HEENT: Atraumatic, normocephalic. Oral mucosa is moist NECK: Supple. CARDIOVASCULAR: S1, S2 heard. Rate and rhythm regular. RESPIRATORY: Clear to auscultation. GASTROINTESTINAL: Abdomen is soft. MUSCULOSKELETAL: No tenderness. No edema. DERMATOLOGIC: No skin rash. NEUROLOGIC: Alert and awake and oriented X3. No focal neurologic deficits. Moving all the extremities. PSYCHIATRIC: Mood and affect normal. LABORATORY DATA: Potassium is 4.2, BUN is 37, creatinine is 4.9. ASSESSMENT AND PLAN: 1. End-stage renal disease. Continue hemodialysis as tolerated. 2. Follow with Case Management for outpatient placement. 3. Hypertension, stable. 4. Edema. Remove fluid with dialysis. 5. Anemia. We will monitor hemoglobin. 6. Continue Epogen with dialysis. Job ID: [id number]
[2018-06-13 13:18] LABS: HBSAg Index 0.34 S/CO (0-0.99); Hep B Core Total Ab Non-Reactive (NonReactive); Hep B Core Total Index 0.15 S/CO (0-0.79); Hep B Surf Ag Non-Reactive S/CO (NonReactive); Hep C IgG Ab Non-Reactive (NonReactive); Hep C Index 0.07 S/CO (0-0.79)
[2018-06-13 13:25] LABS: HBSAB Concentration 15.14 mIU/mL; Hep B Surf AB Reactive (NonReactive)
[2018-06-13] MEDS: Atorvastatin Calcium 20 MG TAB PO SCH (21:07)
[2018-06-13] MEDS: Tamsulosin HCl 0.4 MG CAP PO SCH (21:07)
[2018-06-13] MEDS: Insulin Glargine 15 UNITS in Pre-Filled Syringe 1 EACH SC SCH (21:09)
[2018-06-14] MEDS: Docusate 100 MG CAP PO SCH ×2 (09:31→20:50)
[2018-06-14] MEDS: Carvedilol 3.125 MG TAB PO SCH ×2 (09:31→20:50)
[2018-06-14] MEDS: Escitalopram Oxalate 10 mg Tablet PO SCH (09:32)
[2018-06-14] MEDS: Ferrous Sulfate 325 MG TAB PO SCH (09:32)
[2018-06-14] MEDS: Sodium Bicarbonate Tab 325 MG TAB PO SCH ×2 (09:32→20:50)
[2018-06-14] MEDS: Lactinex Tablet PO SCH ×2 (09:32→20:50)
[2018-06-14] MEDS: Lisinopril 20 MG TAB PO SCH (09:32)
[2018-06-14] MEDS: Sucralfate 1 GM TAB PO SCH ×2 (09:32→20:53)
[2018-06-14] MEDS: Multivitamin W/ Minerals 1 TAB PO SCH (09:33)
[2018-06-14] MEDS: hydrALAZINE 25 MG TAB PO SCH ×2 (09:33→20:51)
[2018-06-14] MEDS: Loratadine 10 MG TAB PO SCH (09:33)
[2018-06-14] MEDS: Apixaban 2.5 MG TAB PO SCH ×2 (09:33→20:52)
[2018-06-14] MEDS: Gabapentin 100 MG CAP PO SCH ×3 (09:33→20:51)
[2018-06-14] MEDS: Simethicone Chewable 80 MG TAB PO SCH ×3 (09:33→20:50)
[2018-06-14] MEDS: Milk Of Magnesia 30 ML UDCUP PO SCH ×2 (09:36→20:58)
[2018-06-14] MEDS: Epoetin (ESRD) 10,000 UNITS/ML VIAL IVP SCH (11:03)
[2018-06-14] MEDS ORDERED: Heparin 1,000 UNITS/ML VIAL ONE (11:11)
--- NOTE | 2018-06-14 12:36 | PRG ---
DATE OF SERVICE: 06/14/2018 SUBJECTIVE: Patient was seen and examined at bedside and overnight events noted. Patient denies any shortness of breath or chest pain or palpitation. No history of nausea or vomiting or diarrhea or fever or chills or cramps. OBJECTIVE: GENERAL: This is a well-built male, in no apparent distress. VITAL SIGNS: Temperature 99.2. Pulse 83. Respiratory rate 18. Blood pressure 140/86. HEENT: Atraumatic, normocephalic. Oral mucosa is moist NECK: Supple. CARDIOVASCULAR: S1, S2 heard. Rate and rhythm regular. RESPIRATORY: Clear to auscultation. GASTROINTESTINAL: Abdomen is soft. MUSCULOSKELETAL: No tenderness. No edema. DERMATOLOGIC: No skin rash. NEUROLOGIC: Alert and awake and oriented X3. No focal neurologic deficits. Moving all the extremities. PSYCHIATRIC: Mood and affect normal. LABORATORY DATA: No labs done today. ASSESSMENT AND PLAN: 1. End-stage renal disease. Plan is to have dialysis today for 2 to 3 hours and continue dialysis on Sunday, Sunday, and Sunday. Follow up with Case Management for outpatient placement. 2. Hypertension. We will remove fluid with dialysis. 3. Edema. Limit fluid intake and salt intake. 4. Anemia. Continue BOO with dialysis. Continue dialysis as tolerated. Job ID: [id number]
[2018-06-14] MEDS: Tamsulosin HCl 0.4 MG CAP PO SCH (20:50)
[2018-06-14] MEDS: Atorvastatin Calcium 20 MG TAB PO SCH (20:51)
[2018-06-14] MEDS: Insulin Glargine 15 UNITS in Pre-Filled Syringe 1 EACH SC SCH (21:00)
[2018-06-15 05:16] LABS: Hep B Surface AG-Rflx Sendout Negative (Negative); Hepatitis B Core IgM AB Negative (Negative); Hepatitis B Core Total Negative (Negative); Hepatitis B Surface AB-Sendout Reactive (.)
[2018-06-15] MEDS: Docusate 100 MG CAP PO SCH ×2 (09:39→20:51)
[2018-06-15] MEDS: Escitalopram Oxalate 10 mg Tablet PO SCH (09:39)
[2018-06-15] MEDS: Apixaban 2.5 MG TAB PO SCH ×2 (09:39→20:51)
[2018-06-15] MEDS: Sodium Bicarbonate Tab 325 MG TAB PO SCH ×2 (09:39→20:50)
[2018-06-15] MEDS: Ferrous Sulfate 325 MG TAB PO SCH (09:39)
[2018-06-15] MEDS: Lactinex Tablet PO SCH ×2 (09:39→20:50)
[2018-06-15] MEDS: Multivitamin W/ Minerals 1 TAB PO SCH (09:40)
[2018-06-15] MEDS: hydrALAZINE 25 MG TAB PO SCH ×2 (09:40→20:52)
[2018-06-15] MEDS: Simethicone Chewable 80 MG TAB PO SCH ×3 (09:40→20:51)
[2018-06-15] MEDS: Loratadine 10 MG TAB PO SCH (09:40)
[2018-06-15] MEDS: Gabapentin 100 MG CAP PO SCH ×3 (09:40→20:51)
[2018-06-15] MEDS: Sucralfate 1 GM TAB PO SCH ×2 (09:40→20:52)
[2018-06-15] MEDS: Carvedilol 3.125 MG TAB PO SCH ×2 (09:41→20:51)
[2018-06-15] MEDS: Milk Of Magnesia 30 ML UDCUP PO SCH ×2 (09:41→20:50)
--- NOTE | 2018-06-15 09:43 | PRG ---
DATE OF SERVICE: 06/15/2018 SUBJECTIVE: Patient was seen and examined at bedside and overnight events noted. Patient denies any shortness of breath or chest pain or palpitation. No history of nausea or vomiting or diarrhea or fever or chills or cramps. OBJECTIVE: GENERAL: This is an obese male, in no acute distress. VITAL SIGNS: Temperature 99.2, pulse 83, respiratory rate 18. Blood pressure 139/79. HEENT: Atraumatic, normocephalic. Oral mucosa is moist NECK: Supple. CARDIOVASCULAR: S1, S2 heard. Rate and rhythm regular. RESPIRATORY: Clear to auscultation. GASTROINTESTINAL: Abdomen is soft. MUSCULOSKELETAL: No tenderness. No edema. DERMATOLOGIC: No skin rash. NEUROLOGIC: Alert and awake and oriented X3. No focal neurologic deficits. Moving all the extremities. PSYCHIATRIC: Mood and affect normal. LABORATORY DATA: No labs done today. ASSESSMENT AND PLAN: 1. End-stage renal disease. Continue on hemodialysis. Plan dialysis access, If the patient needs permanent dialysis access, we will have Surgery consulted. 2. Edema. Normal fluid. 3. Anemia. Continue Epogen with dialysis. 4. Hypertension, stable. PLAN: Plan is to continue on dialysis as tolerated. Job ID: [id number]
[2018-06-15] MEDS: Insulin Glargine 15 UNITS in Pre-Filled Syringe 1 EACH SC SCH (20:49)
[2018-06-15] MEDS: Atorvastatin Calcium 20 MG TAB PO SCH (20:51)
[2018-06-15] MEDS: Tamsulosin HCl 0.4 MG CAP PO SCH (20:52)
[2018-06-15] MEDS: Insulin Regular 300 UNITS/3 ML VIAL SC PRN (20:59)
[2018-06-16] MEDS: Milk Of Magnesia 30 ML UDCUP PO SCH ×2 (09:02→21:41)
[2018-06-16] MEDS: Acetaminophen 500 MG TAB PO PRN (09:02)
[2018-06-16] MEDS: Docusate 100 MG CAP PO SCH ×2 (09:02→21:40)
[2018-06-16] MEDS: Gabapentin 100 MG CAP PO SCH ×3 (09:04→21:40)
[2018-06-16] MEDS: Loratadine 10 MG TAB PO SCH (09:04)
[2018-06-16] MEDS: Carvedilol 3.125 MG TAB PO SCH ×2 (09:04→21:39)
[2018-06-16] MEDS: Ferrous Sulfate 325 MG TAB PO SCH (09:04)
[2018-06-16] MEDS: Sodium Bicarbonate Tab 325 MG TAB PO SCH ×2 (09:05→21:40)
[2018-06-16] MEDS: hydrALAZINE 25 MG TAB PO SCH ×2 (09:05→21:39)
[2018-06-16] MEDS: Apixaban 2.5 MG TAB PO SCH ×2 (09:06→21:41)
[2018-06-16] MEDS: Lactinex Tablet PO SCH ×2 (09:06→21:40)
[2018-06-16] MEDS: Multivitamin W/ Minerals 1 TAB PO SCH (09:06)
[2018-06-16] MEDS: Escitalopram Oxalate 10 mg Tablet PO SCH (09:06)
[2018-06-16] MEDS: Sucralfate 1 GM TAB PO SCH ×2 (09:07→21:41)
[2018-06-16] MEDS: Simethicone Chewable 80 MG TAB PO SCH ×3 (09:07→21:40)
[2018-06-16] MEDS: Insulin Regular 300 UNITS/3 ML VIAL SC PRN (11:32)
--- NOTE | 2018-06-16 17:40 | PRG ---
DATE OF SERVICE: 06/16/2018 SUBJECTIVE: Patient was seen and examined at bedside and overnight events noted. Patient denies any shortness of breath or chest pain or palpitation. No history of nausea or vomiting or diarrhea or fever or chills or cramps. OBJECTIVE: GENERAL: This is an obese male, in no apparent distress. VITAL SIGNS: Temperature 97.5. Heart rate 84. Respiratory rate 20. Blood pressure 122/75. HEENT: Atraumatic, normocephalic. Oral mucosa is moist NECK: Supple. CARDIOVASCULAR: S1, S2 heard. Rate and rhythm regular. RESPIRATORY: Clear to auscultation. GASTROINTESTINAL: Abdomen is soft. MUSCULOSKELETAL: No tenderness. No edema. DERMATOLOGIC: No skin rash. NEUROLOGIC: Alert and awake and oriented X3. No focal neurologic deficits. Moving all the extremities. PSYCHIATRIC: Mood and affect normal. LABORATORY DATA: No labs done today ASSESSMENT AND PLAN: 1. End-stage renal disease. Continue on hemodialysis Sunday, Sunday, and Sunday. Need tunneled dialysis catheter. 2. Edema. I will remove fluid with dialysis. 3. Anemia. 4. Hypertension. Stable. 5. Continue on dialysis as tolerated. Job ID: [id number]
[2018-06-16] MEDS: Tamsulosin HCl 0.4 MG CAP PO SCH (21:39)
[2018-06-16] MEDS: Atorvastatin Calcium 20 MG TAB PO SCH (21:40)
[2018-06-16] MEDS: Insulin Glargine 15 UNITS in Pre-Filled Syringe 1 EACH SC SCH (21:48)
[2018-06-17] MEDS: Apixaban 2.5 MG TAB PO SCH ×2 (12:05→21:03)
[2018-06-17] MEDS: Lactinex Tablet PO SCH ×2 (12:05→21:05)
[2018-06-17] MEDS: Sodium Bicarbonate Tab 325 MG TAB PO SCH ×2 (12:05→21:03)
[2018-06-17] MEDS: Escitalopram Oxalate 10 mg Tablet PO SCH (12:05)
[2018-06-17] MEDS: Multivitamin W/ Minerals 1 TAB PO SCH (12:06)
[2018-06-17] MEDS: Sucralfate 1 GM TAB PO SCH ×2 (12:06→21:03)
[2018-06-17] MEDS: hydrALAZINE 25 MG TAB PO SCH ×2 (12:06→21:03)
[2018-06-17] MEDS: Gabapentin 100 MG CAP PO SCH ×3 (12:07→21:03)
[2018-06-17] MEDS: Loratadine 10 MG TAB PO SCH (12:08)
[2018-06-17] MEDS: Milk Of Magnesia 30 ML UDCUP PO SCH ×2 (12:08→21:05)
[2018-06-17] MEDS: Simethicone Chewable 80 MG TAB PO SCH ×3 (12:08→21:03)
[2018-06-17] MEDS: Docusate 100 MG CAP PO SCH ×2 (12:18→21:04)
[2018-06-17] MEDS: Ferrous Sulfate 325 MG TAB PO SCH (12:18)
[2018-06-17] MEDS: Carvedilol 3.125 MG TAB PO SCH ×2 (12:18→21:04)
[2018-06-17 12:31] LABS: Anion Gap 11 mmol/L (10-20); BUN (Urea Nitrogen) 29 mg/dL (8.9-20.6); Calc. Creatinine Clearance 39 mL/min (70-130); Calcium 7.9 mg/dL (7.8-10.44); Carbon Dioxide 30 mmol/L (22-29); Chloride 98 mmol/L (98-107); Estimated GFR-MDRD 17; Glucose 128 mg/dL (70-105); Potassium 3.9 mmol/L (3.5-5.1); Sodium 135 mmol/L (136-145)
[2018-06-17 12:32] LABS: #Eosinphils 0.3 thou/uL (0.0-0.7); #Monocytes 0.8 thou/uL (0.11-0.59); #Neutrophils 5.7 thou/uL (1.40-6.50); %Basophils 0.6 % (0.0-1.0); %Eosinophils 3.5 % (0.0-10.0); %Lymphocytes 12.7 % (21.0-51.0); %Monocytes 9.8 % (0.0-10.0); %Neutrophils 73.4 % (42.0-75.0); Hemoglobin 8.4 g/dL (14.0-18.0); Mean Corpuscular HGB CONC 30.7 g/dL (32.0-36.0); Mean Corpuscular Hemoglobin 29.1 pg (27.0-31.0); Mean Corpuscular Volume 94.8 fL (78.0-98.0); Mean Platelet Volume 7.2 fL (7.4-10.4); Platelet Count 240 thou/uL (130-400); RBC Distribution Width 16.2 % (11.5-14.5); Red Blood Cell (RBC) Count 2.88 mill/uL (4.70-6.10); White Blood Cell (WBC) Count 7.7 thou/uL (4.8-10.8)
--- NOTE | 2018-06-17 13:16 | PRG ---
DATE OF SERVICE: 06/17/2018 SUBJECTIVE: A 48-year-old gentleman being seen for end-stage renal disease. The patient denies any nausea, vomiting, or chest pain. OBJECTIVE: CONSTITUTIONAL: On examination, the patient is awake and alert. VITAL SIGNS: Afebrile, pulse 76, breathing 16, and blood pressure 153/92. GENERAL APPEARANCE AND MENTAL STATUS: Fair. HEAD/NECK: Normocephalic. Atraumatic. EYES: EOMI. No deformity. EARS: Clear. No ulcers. NOSE: Intact. No lesions. MOUTH: Clear. No discharge. THROAT: Clear. No exudate. LUNGS: Clear. No crackles. CARDIAC: S1, S2. No rub. ABDOMEN: Benign. Bowel sounds positive. GENITALIA/RECTUM: Ram absent. BACK/EXTREMITIES: Edema 0+. NEUROLOGICAL: Alert and motor intact. LABORATORY DATA: Labs show hemoglobin 8.4. Creatinine 3.9. ASSESSMENT AND PLAN: 1. Stage 6 chronic kidney disease, stable. 2. Hypertension, stable. 3. Anemia, stable. 4. Medications based on glomerular filtration rate are appropriate. 5. Discharge planning is in progress. Job ID: [id number]
[2018-06-17] MEDS: Epoetin (ESRD) 10,000 UNITS/ML VIAL IVP SCH (14:06)
[2018-06-17] MEDS: Insulin Regular 300 UNITS/3 ML VIAL SC PRN ×2 (16:19→21:11)
[2018-06-17] MEDS: Tamsulosin HCl 0.4 MG CAP PO SCH (21:05)
[2018-06-17] MEDS: Atorvastatin Calcium 20 MG TAB PO SCH (21:05)
[2018-06-17] MEDS: Insulin Glargine 15 UNITS in Pre-Filled Syringe 1 EACH SC SCH (21:13)
[2018-06-18] MEDS: Insulin Regular 300 UNITS/3 ML VIAL SC PRN ×2 (06:50→22:00)
[2018-06-18 07:41] VITALS: BMI 38.5
[2018-06-18] MEDS: Milk Of Magnesia 30 ML UDCUP PO SCH ×2 (09:00→21:58)
[2018-06-18] MEDS: Simethicone Chewable 80 MG TAB PO SCH ×3 (09:01→21:59)
[2018-06-18] MEDS: Sodium Bicarbonate Tab 325 MG TAB PO SCH ×2 (09:01→21:59)
[2018-06-18] MEDS: Lactinex Tablet PO SCH ×2 (09:01→21:57)
[2018-06-18] MEDS: Escitalopram Oxalate 10 mg Tablet PO SCH (09:01)
[2018-06-18] MEDS: Carvedilol 3.125 MG TAB PO SCH ×2 (09:02→21:55)
[2018-06-18] MEDS: Sucralfate 1 GM TAB PO SCH ×2 (09:02→21:59)
[2018-06-18] MEDS: Docusate 100 MG CAP PO SCH ×2 (09:02→21:55)
[2018-06-18] MEDS: Ferrous Sulfate 325 MG TAB PO SCH (09:02)
[2018-06-18] MEDS: Gabapentin 100 MG CAP PO SCH ×3 (09:02→21:55)
[2018-06-18] MEDS: hydrALAZINE 25 MG TAB PO SCH ×2 (09:02→21:56)
[2018-06-18] MEDS: Multivitamin W/ Minerals 1 TAB PO SCH (09:02)
[2018-06-18] MEDS: Loratadine 10 MG TAB PO SCH (09:02)
[2018-06-18] MEDS: Apixaban 2.5 MG TAB PO SCH ×2 (09:03→21:55)
--- NOTE | 2018-06-18 10:12 | PRG ---
DATE OF SERVICE: 06/18/2018 SUBJECTIVE: This is a 48-year-old gentleman being seen for end-stage renal disease. The patient denied any nausea, vomiting, or chest pain. OBJECTIVE: CONSTITUTIONAL: On examination, the patient is awake and alert. VITAL SIGNS: Afebrile, pulse 79, breathing 16, and blood pressure 122/83. Awake, alert, in no acute distress. GENERAL APPEARANCE AND MENTAL STATUS: Fair. HEAD/NECK: Normocephalic. Atraumatic. EYES: EOMI. No deformity. EARS: Clear. No ulcers. NOSE: Intact. No lesions. MOUTH: Clear. No discharge. THROAT: Clear. No exudate. LUNGS: Clear. No crackles. CARDIAC: S1, S2. No rub. ABDOMEN: Benign. Bowel sounds positive. GENITALIA/RECTUM: Ram absent. BACK/EXTREMITIES: Edema 0+. NEUROLOGICAL: Alert and motor intact. SKIN: LYMPHATICS: LABORATORY DATA: Labs show hemoglobin 8.3. ASSESSMENT/PLAN: 1. Stage 6 chronic kidney disease. Continue hemodialysis. 2. Hypertension, stable. 3. Anemia, stable. 4. Access. We will consult general surgery for tunnelled dialysis catheter, so patient can be discharged. Job ID: [id number]
[2018-06-18] MEDS: Atorvastatin Calcium 20 MG TAB PO SCH (21:55)
[2018-06-18] MEDS: Insulin Glargine 15 UNITS in Pre-Filled Syringe 1 EACH SC SCH (21:56)
[2018-06-18] MEDS: Tamsulosin HCl 0.4 MG CAP PO SCH (21:59)
[2018-06-19 04:51] VITALS: TEMP 98.3
[2018-06-19] MEDS ORDERED: ceFAZolin Sodium 2 GM/100 ML BAG ONE (08:24)
[2018-06-19] MEDS ORDERED: Bupivacaine HCl 0.5%/Epinephrine 1:200,000/PF 30 ml Vial ONE (08:25)
[2018-06-19] MEDS ORDERED: Lidocaine 2% PF 5 ML VIAL ONE (08:25)
[2018-06-19] MEDS ORDERED: Sodium Chloride 0.9% 20 ML ONE (08:25)
[2018-06-19] MEDS ORDERED: Heparin 10,000 UNITS/1 ML VIAL ONE (08:25)
[2018-06-19] MEDS ORDERED: Midazolam HCl 2 mg/2 ml Vial ONE (08:58)
[2018-06-19] MEDS ORDERED: Fentanyl 100 MCG/2 ML VIAL ONE (08:59)
[2018-06-19] MEDS ORDERED: Sodium Chloride 0.9% 0 ML ONE (09:43)
--- NOTE | 2018-06-19 10:23 | RAD ---
PORTABLE CHEST: HISTORY: Line placement. COMPARISON: 06/07/2018 study. FINDINGS: Heart size is enlarged. Lungs are clear of infiltrates. A right-sided HemoSplit catheter has been p laced. Catheter tip overlies the superior vena cava/right atrium junction. No signs of pneumothorax . IMPRESSION: Post line placement. No signs of pneumothorax. POS: [facility]
[2018-06-19] MEDS: Docusate 100 MG CAP PO SCH (10:47)
[2018-06-19] MEDS: Ferrous Sulfate 325 MG TAB PO SCH (10:47)
[2018-06-19] MEDS: Lactinex Tablet PO SCH (10:47)
[2018-06-19] MEDS: hydrALAZINE 25 MG TAB PO SCH (10:48)
[2018-06-19] MEDS: Carvedilol 3.125 MG TAB PO SCH (10:48)
[2018-06-19] MEDS: Escitalopram Oxalate 10 mg Tablet PO SCH (10:49)
[2018-06-19] MEDS: Sodium Bicarbonate Tab 325 MG TAB PO SCH (10:49)
[2018-06-19] MEDS: Simethicone Chewable 80 MG TAB PO SCH ×2 (10:50→17:10)
[2018-06-19] MEDS: Multivitamin W/ Minerals 1 TAB PO SCH (10:50)
[2018-06-19] MEDS: Sucralfate 1 GM TAB PO SCH (10:50)
[2018-06-19] MEDS: Milk Of Magnesia 30 ML UDCUP PO SCH (10:50)
[2018-06-19] MEDS: Gabapentin 100 MG CAP PO SCH ×2 (10:50→17:10)
[2018-06-19] MEDS: Apixaban 2.5 MG TAB PO SCH (10:50)
[2018-06-19] MEDS: Loratadine 10 MG TAB PO SCH (10:50)
--- NOTE | 2018-06-19 11:09 | OP ---
DATE OF PROCEDURE: 06/19/2018 PREOPERATIVE DIAGNOSIS: Chronic renal failure, dialysis dependent POSTOPERATIVE DIAGNOSIS: Chronic renal failure, dialysis dependent PROCEDURE PERFORMED: Placement of 15.5-Vietnamese tunneled right subclavian vein dialysis catheter under laparoscopy. ANESTHESIA: Monitored anesthesia care and local. INDICATIONS FOR OPERATION: A 48-year-old man with history of chronic renal failure, dialysis dependent. I was asked to place a tunneled dialysis catheter for chronic hemodialysis. DESCRIPTION OF PROCEDURE: Informed consent was obtained from the patient. He was brought to the operating room and placed in supine position. Following monitored anesthesia care, the right chest wall, neck sterilely prepped and draped in usual fashion. The skin below the right clavicle was anesthetized with 1% lidocaine. The right subclavian vein was cannulated with an 18-gauge introducer needle returning dark venous blood. Guidewire was passed through the needle and advanced into the right subclavian vein without resistance. Needle was withdrawn over the guidewire. Proper placement of the guidewire was confirmed by fluoroscopy. Following this, we then anesthetized the skin approximately 7 cm below the subclavian puncture site. The tract was also anesthetized with lidocaine. We made a small transverse incision here and tunneled the 15.5-Vietnamese dialysis catheter through this, bringing the tip of the catheter through the previous puncture site after a stab incision was made adjacent to the guidewire. I then used a hemostat to dilate the subcutaneous tissues around the guidewire entrance. A dilator was then passed over the guidewire, dilating the subcutaneous tissues. An introducer sheath with the dilator was advanced as a unit and placed in the right subclavian vein without resistance. The dilator and guidewire were removed as a unit. The 15.5-Vietnamese dialysis catheter was then inserted through the sheath and advanced into the right subclavian vein without resistance. The tip of the catheter was confirmed in the junction of the superior vena cava and the right atrium. The sheath was peeled away. Proper landing of the catheter was confirmed again by fluoroscopy. Total fluoroscopy time was 19 seconds. The catheter was easily vigorously aspirated of venous blood and then flushed with saline followed by 25 units of straight heparin. The previous puncture site skin was closed using interrupted sutures of 4-0 Monocryl in subcuticular fashion. The cuff was embedded in the subcutaneous position. The catheter exit site was closed using 3-0 nylon suture at 2 points. Sterile dressings were applied. Portable chest x-ray will be obtained to exclude pneumothorax. Job ID: [id number]
--- NOTE | 2018-06-19 11:45 | PRG ---
DATE OF SERVICE: 06/19/2018 SUBJECTIVE: This is a 48-year-old gentleman being seen for end-stage renal disease. The patient denied any nausea, vomiting, or chest pain. OBJECTIVE: See above. CONSTITUTIONAL: Awake, alert, in no acute distress. VITAL SIGNS: Afebrile, pulse 74, breathing 16, and blood pressure 124/79. GENERAL APPEARANCE AND MENTAL STATUS: Fair. HEAD/NECK: Normocephalic. Atraumatic. EYES: EOMI. No deformity. EARS: Clear. No ulcers. NOSE: Intact. No lesions. MOUTH: Clear. No discharge. THROAT: Clear. No exudate. LUNGS: Clear. No crackles. CARDIAC: S1, S2. No rub. ABDOMEN: Benign. Bowel sounds positive. GENITALIA/RECTUM: Ram absent. BACK/EXTREMITIES: Edema 0+. NEUROLOGICAL: Alert and motor intact. SKIN: LYMPHATICS: LABORATORY DATA: Labs show hemoglobin 8.4. ASSESSMENT/PLAN: 1. Stage 6 chronic kidney disease. Continue hemodialysis. 2. Hypertension, stable. 3. Anemia, stable. 4. Medication based on glomerular filtration rate appropriate. I would recommend removal of the temporary dialysis catheter. Job ID: [id number]
[2018-06-19] MEDS: Epoetin (ESRD) 10,000 UNITS/ML VIAL IVP SCH (12:15)
[2018-06-19] MEDS: Acetaminophen 500 MG TAB PO PRN (17:10)
[2018-06-19 17:38] VITALS: BP 117/68
--- NOTE | 2018-06-20 10:29 | PQF ---
THERESE WARREN VENKAT R MD [id number] [facility]-267 [id number] CLINICAL DOCUMENTATION CLARIFICATION FORM: POST DISCHARGE Addendum to original discharge summary date: ____ Late entry note date: __ DATE: 06/20/18 ATTN: Dr. Dumont, Please exercise your independent, professional judgment in responding to the clarification form. Clinical indicators are provided on the bottom of this form for your review Please check appropriate box(s): HEART FAILURE: A. TYPE: [ ] Systolic / HFrEF [ ] Diastolic / HFpEF [ ] Combined Systolic / Diastolic B. ACUITY [ ] Acute [ ] Acute on Chronic [ ] Chronic [ y ] Other diagnosis fluid over load [ ] Unable to determine In addition, please specify: Present on Admission (POA): [y ] Yes [ ] No [ ] Unable to determine For continuity of documentation, please document condition throughout progress notes and discharge summary. Thank You. CLINICAL INDICATORS - SIGNS / SYMPTOMS / LABS Congestive heart failure---06/09,06/10 Progress notes BNP----1005----3 Labs 06/07 Chest x-ray--Pulmonary Vascular congestion RISKS: End Stage Renal Disease---3 H&P Hypertension---3 H&P TREATMENTS: Lasix 80 bid--Home meds on H&P Plan diuresis---06/09 Progress note Thank you, Edwige Bajwa, [facility] 06/20/18 10:24 AM (This form is maintained as a part of the permanent medical record) 2014 [email or web address]. All Rights Reserved [email or web address] [phone] MTDD
--- NOTE | 2018-06-20 14:28 | DIS ---
DATE OF ADMISSION: 06/07/2018 DATE OF DISCHARGE: 06/19/2018 ADMITTING DIAGNOSES: 1. Chest pain, rule out myocardial infarction. 2. Hyperkalemia. 3. End-stage renal disease. 4. Hypertension. 5. Diabetes mellitus. 6. Hyperlipidemia. . FINAL DIAGNOSES: 1. Chest pain R/U Mi. 2. End-stage renal disease, underwent dialysis, treated. 3. Hyperkalemia, corrected. 4. Hypertension, controlled and improved. 5. Diabetes mellitus, stable. 6. Hyperlipidemia. 7. History of deep venous thrombosis. 8. History of pulmonary embolism. BRIEF SUMMARY OF HOSPITAL COURSE: Mr. Cristina is a 48-year-old male admitted because of worsening renal failure. needed dialysis. pt had hyperkalemia as well . His blood pressure was elevated and medication dose was increased to control blood pressure. Hemodialysis was initiated. He tolerated dialysis well.. The patient is being set up for out patient dialysis. A tunneled catheter to be placed for outpatient dialysis. Unfortunately, the surgeon who was supposed to do procedure was on vacation. Finally, a different surgeon was called and able to do it. The patient underwent the procedure on 06/19/2018, after dialysis, the patient is being discharged. PHYSICAL EXAMINATION: GENERAL: At the time of discharge, he was stable. VITAL SIGNS: Stable. LUNGS: Clear. HEART: Heart sounds regular. ABDOMEN: Soft, nontender. Bowel sounds present. DISCHARGE MEDICATIONS: 1. Carafate 1 g b.i.d. 2. Protonix 40 mg daily. 3. Lexapro 10 mg daily. 4. Coreg 3.125 b.i.d. 5. Multivitamin daily. 6. Dulcolax daily. 7. Flomax 0.4 mg daily. 8. Gabapentin 100 mg t.i.d. 9. Colace 100 mg b.i.d. 10. Simethicone 80 mg t.i.d. 11. Tylenol p.r.n. 12. Eliquis 2.5 b.i.d. 13. Sodium bicarbonate 650 b.i.d. 14. Ferrous sulfate 325 mg daily. 15. Hydralazine 50 mg b.i.d. 16. Insulin Levemir 15 units at bedtime. 17. Lipitor 20 mg daily. 18. Floranex 2 tablets b.i.d. 19. Zofran p.r.n. 20. MiraLAX 17 g daily p.r.n. Also continue remaining p.r.n. medications The patient will continue dialysis 3 times a week. Job ID: [id number] MTDD
--- NOTE | 2018-06-22 13:33 | EKG ---
Test Reason : Blood Pressure : / mmHG Vent. Rate : 073 BPM Atrial Rate : 073 BPM P-R Int : 226 ms QRS Dur : 098 ms QT Int : 450 ms P-R-T Axes : 053 064 041 degrees QTc Int : 495 ms Sinus rhythm with 1st degree A-V block Prolonged QT Abnormal ECG Confirmed by HOA UGARTE, CLYDE ([id number]), editorial intern ZENY DIXON ([id number]) on 06/22/2018 1:33:13 PM Referred By: Confirmed By:CLYDE CAMARA MD
== END 2018-06-19 18:15 | DRG 699 ==
LOC: ERS 17:41 → 2NO 19:51 → SURG B 06-09 09:51
PROVIDERS: ADMIT Internal Medicine; ATTEND Internal Medicine
PROC: 0JH63XZ Insertion of Tunneled Vascular Access Device into Chest Subcutaneous Tissue and Fascia, Percutaneous Approach (ICD-10-PCS; principal; 2018-06-19)
PROC: 02HV33Z Insertion of Infusion Device into Superior Vena Cava, Percutaneous Approach (ICD-10-PCS; 2018-06-19)
PROC: B5181ZA Fluoroscopy of Superior Vena Cava using Low Osmolar Contrast, Guidance (ICD-10-PCS; 2018-06-19)
DX: E11.22 Type 2 diabetes mellitus with diabetic chronic kidney disease (principal); E87.2 Acidosis; I13.2 Hypertensive heart and chronic kidney disease with heart failure and with stage 5 chronic kidney disease, or end stage renal disease; N18.6 End stage renal disease; E78.5 Hyperlipidemia, unspecified; D64.9 Anemia, unspecified; K21.9 Gastro-esophageal reflux disease without esophagitis; N40.0 Benign prostatic hyperplasia without lower urinary tract symptoms; E87.5 Hyperkalemia; F20.9 Schizophrenia, unspecified; F17.210 Nicotine dependence, cigarettes, uncomplicated; I50.9 Heart failure, unspecified; Z86.711 Personal history of pulmonary embolism; Z87.19 Personal history of other diseases of the digestive system; Z79.01 Long term (current) use of anticoagulants; Z79.899 Other long term (current) drug therapy; Z98.890 Other specified postprocedural states; Z88.8 Allergy status to other drugs, medicaments and biological substances; Z79.4 Long term (current) use of insulin; Z86.718 Personal history of other venous thrombosis and embolism
CPT/HCPCS: 36415; 36416; 36556; 71045; 80048; 80053; 82553; 83036; 83690; 83880; 84484; 85014; 85018; 85025; 86704; 86705; 86706; 86707; 86803; 87340; 87350; 90935; 93005; 96365; 96374; 96375; C1752; C1769; G0257; J0670; J0690; J1642; J1644; J1815; J1825; J2001; J2250; J3010; J7070; Q4081

== ENCOUNTER 2018-08-20 07:16 | Day surgery (SDC) | payer OTHER ==
[2018-08-19 08:55] VITALS: BMI 41.6
--- NOTE | 2018-08-20 07:33 | HP ---
HISTORY OF PRESENT ILLNESS: This is a 48-year-old Latin-Congolese male with abdominal pain and abdominal bloating. Symptoms are chronic in nature. abdominal pain off and on. Severe constipation alternating with diarrhea. No history of hematochezia. The patient comes in for colonoscopy because of the above reason. ALLERGIES: MORPHINE. MEDICAL ILLNESSES: 1. Obesity. 2. Chronic back pain. 3. Hypertension. 4. Hyperlipidemia. 5. Chronic back pain. 6. Chronic kidney disease. 7. Schizophrenia. 8. Left footdrop. 9. Depression. 10. Diabetes. 11. History of DVT and pulmonary embolism in the past. 12. Back surgery. PHYSICAL EXAMINATION: GENERAL: He is obese, appears comfortable. VITAL SIGNS: Pulse is 70 and blood pressure 176/70. HEENT: Conjunctivae clear. CARDIOVASCULAR SYSTEM: First and seconds heart sounds are heard. LUNGS: Clear to auscultation. ABDOMEN: Soft. No organomegaly. No tenderness. No masses. ADMITTING DIAGNOSES: Abdominal pain, diarrhea, and constipation. PLAN: Colonoscopy. Job ID: [id number]
[2018-08-20 08:26] LABS: Potassium 3.4 mmol/L (3.5-5.1)
[2018-08-20] MEDS ORDERED: PROPOFOL 200 MG/20 ML VIAL ONE (10:51)
--- NOTE | 2018-08-20 15:30 | OP ---
DATE OF PROCEDURE: 08/20/2018 PROCEDURE PERFORMED: Colonoscopy with polypectomy with biopsy forceps. PREOPERATIVE DIAGNOSES: Abdominal pain, diarrhea, constipation, abdominal bloating and swelling. POSTOPERATIVE DIAGNOSES: 1. Sessile ascending colon polyp, removed by forceps. 2. Large hemorrhoids. 3. The exam was very difficult because of his belly breathing and constant motion. He also has some retained fecal material in other colon. DESCRIPTION OF PROCEDURE: The patient was placed on his left lateral position and was given sedation by Anesthesia Department. A rectal exam was done before the scope was advanced into the rectum. No lesions felt on rectal exam. A Pentax video colonoscope was introduced into the rectum and advanced all the way into cecum. The exam was difficult because of his abdominal breathing and constant motion, also the colon was spastic. He also had some retained stool in the rest of colon. The mucosa appeared normal throughout the colon. The appendicular opening, ileocecal wall, cecum, no pathology. An 8 mm sessile polyp over the ascending colon was removed completely with biopsy forceps. The hepatic flexure, transverse colon, splenic flexure, descending colon, sigmoid colon, no pathology. I could not retroflex the scope because of the patient not able to hold the air .. Careful examination of the anal canal did show large hemorrhoids. DISCHARGE PLANNING: This is a 48-year-old Latin-Mexican male came for a colonoscopy with abdominal pain, diarrhea, constipation, abdominal bloating. He underwent colonoscopy and polypectomy of the ascending colon polyp. DISCHARGE RECOMMENDATION: 1. Resume medicine as before. 2. May start on his anticoagulation as before. 3. This is from bleeding from the polypectomy site as he has been on the anticoagulation. The patient will come back to me in 2 weeks. Job ID: [id number] [facility]
== END 2018-08-20 11:30 | disposition home or self-care (01) ==
LOC: SDC 07:16
PROVIDERS: ATTEND Internal Medicine Gastroenterology
PROC: 0DBE8ZX Excision of Large Intestine, Via Natural or Artificial Opening Endoscopic, Diagnostic (ICD-10-PCS; principal; 2018-08-20)
DX: D12.2 Benign neoplasm of ascending colon (principal); K64.9 Unspecified hemorrhoids; K59.00 Constipation, unspecified; E78.5 Hyperlipidemia, unspecified; I12.9 Hypertensive chronic kidney disease with stage 1 through stage 4 chronic kidney disease, or unspecified chronic kidney disease; N18.9 Chronic kidney disease, unspecified; E11.22 Type 2 diabetes mellitus with diabetic chronic kidney disease; F32.9 Major depressive disorder, single episode, unspecified; G89.29 Other chronic pain; M54.5 Low back pain; F20.9 Schizophrenia, unspecified; E66.9 Obesity, unspecified; Z68.41 Body mass index [BMI] 40.0-44.9, adult; Z88.5 Allergy status to narcotic agent
CPT/HCPCS: 36415; 36416; 84132; 88305; J2704

== ENCOUNTER 2018-10-02 16:33 | Emergency (ER) | payer OTHER ==
[2018-10-02 17:29] LABS: #Eosinphils 0.1 thou/uL (0.0-0.7); #Lymphocytes 0.9 thou/uL (1.20-3.40); #Monocytes 0.8 thou/uL (0.11-0.59); #Neutrophils 7.7 thou/uL (1.40-6.50); %Basophils 0.3 % (0.0-1.0); %Eosinophils 0.8 % (0.0-10.0); %Lymphocytes 9.1 % (21.0-51.0); %Monocytes 8.4 % (0.0-10.0); %Neutrophils 81.5 % (42.0-75.0); Hemoglobin 9.7 g/dL (14.0-18.0); Mean Corpuscular HGB CONC 32.2 g/dL (32.0-36.0); Mean Corpuscular Hemoglobin 30.4 pg (27.0-31.0); Mean Corpuscular Volume 94.6 fL (78.0-98.0); Platelet Count 232 thou/uL (130-400); RBC Distribution Width 17.3 % (11.5-14.5); White Blood Cell (WBC) Count 9.5 thou/uL (4.8-10.8)
--- NOTE | 2018-10-02 17:39 | RAD ---
SINGLE VIEW OF THE CHEST: 10/02/18 COMPARISON: 06/19/18 HISTORY: Shortness of breath. FINDINGS: Single view of the chest shows an enlarged but stable cardiomediastinal silhouette. There is no evide nce of consolidation, mass, or pleural effusion. The bones are unremarkable. IMPRESSION: No evidence of acute cardiopulmonary disease. POS: C
[2018-10-02 17:48] LABS: Anion Gap 15 mmol/L (10-20); BUN (Urea Nitrogen) 31 mg/dL (8.9-20.6); Calc. Creatinine Clearance 0 mL/min (70-130); Calcium 7.8 mg/dL (7.8-10.44); Carbon Dioxide 26 mmol/L (22-29); Chloride 96 mmol/L (98-107); Estimated GFR-MDRD 11; Glucose 249 mg/dL (70-105); Lipase 22 U/L (8-78); Magnesium 1.8 mg/dL (1.6-2.6); Potassium 4.1 mmol/L (3.5-5.1); Sodium 133 mmol/L (136-145)
[2018-10-02 19:28] LABS: Bilirubin Moderate (Negative); Blood, Urine Large (Negative); Clarity Cloudy (Clear); Glucose, Urine (Dipstick) 100 mg/dL (Negative); Leukocyte Moderate (Negative); Nitrite Negative (Negative); Protein, Urine (Dipstick) > or equal to 300 mg/dL (Neg-Trace); Urobilinogen 0.2 mg/dL (0.2-1.0)
[2018-10-02 19:42] LABS: Bacteria/HPF 2+ HPF (None Seen); Hyaline Casts/LPF 0-3 HYALINE CAST LPF (0-3 Hyaline); RBC/HPF GREATER THAN 50-TNTC HPF (0-3); Squamous Epithelial 0-3 HPF (0-3); Transitional Epithelial 0-3 HPF (0-3); Yeast-All Forms 4+ HPF (None Seen)
[2018-10-02] MEDS ORDERED: Lidocaine 1% (PF) 30 ML VIAL ONE (20:16)
[2018-10-02] MEDS ORDERED: cefTRIAXone\\ROCEPHIN 1 GM VIAL ONE (20:16)
[2018-10-02] MEDS ORDERED: Lidocaine 1% PF 5 ML VIAL ONE (20:18)
[2018-10-02] MEDS ORDERED: Acetaminophen 500 MG TAB ONE (21:31)
== END 2018-10-02 21:41 | disposition home or self-care (01) ==
LOC: ERS 16:33
DX: N39.0 Urinary tract infection, site not specified (principal); E78.5 Hyperlipidemia, unspecified; I12.0 Hypertensive chronic kidney disease with stage 5 chronic kidney disease or end stage renal disease; N18.6 End stage renal disease; E11.22 Type 2 diabetes mellitus with diabetic chronic kidney disease; Z87.891 Personal history of nicotine dependence
CPT/HCPCS: 36415; 51702; 71045; 80048; 81003; 81015; 83690; 83735; 85025; 87086; 94760; 96372; J0696; J2001

== ENCOUNTER 2018-11-27 15:33 | Emergency (ER) | payer OTHER ==
--- NOTE | 2018-11-28 00:47 | CON ---
DATE OF CONSULTATION: 11/27/2018 CONSULTING PHYSICIAN: Dr. Theodore. REASON FOR CONSULT: End-stage renal disease evaluation and care. REASON FOR ADMISSION: Missed dialysis and status post . HISTORY OF PRESENT ILLNESS: This is a 48-year-old male with history of end-stage renal disease, type 2 diabetes, hypertension, came to the hospital for procedure. The patient is due for dialysis today. Missed dialysis and he will be getting dialysis. The patient was sent to dialysis from ER. No nausea or vomiting. No chest pain. Complains of leg swelling. PAST MEDICAL HISTORY: Positive for type 2 diabetes, hyperlipidemia, end-stage renal disease, DVT, GERD, BPH, pancreatitis. PAST SURGICAL HISTORY: Tonsillectomy, lumbar spinal surgery, jaw surgery. HOME MEDICATIONS: Reviewed. ALLERGIES: IBUPROFEN, LATEX, METFORMIN, MORPHINE. FAMILY HISTORY: No history of kidney disease. SOCIAL HISTORY: History of smoking, alcohol use. REVIEW OF SYSTEMS: CONSTITUTIONAL: Negative for weight loss or gain, ability to conduct usual activities. SKIN: Negative for rash, itching. EYES: Negative for double vision, pain. ENT/MOUTH: Negative for nose bleeding, neck stiffness, pain, tenderness. CARDIOVASCULAR: Negative for palpitations, dyspnea on exertion, orthopnea. RESPIRATORY: Negative for shortness of breath, wheezing, cough, hemoptysis, fever or night sweats. GASTROINTESTINAL: Negative for poor appetite, abdominal pain, heartburn, nausea, vomiting, constipation, or diarrhea. GENITOURINARY: Negative for urgency, frequency, dysuria, nocturia. MUSCULOSKELETAL: Negative for pain, swelling. NEUROLOGIC/PSYCHIATRIC: Negative for anxiety, depression. ALLERGY/IMMUNOLOGIC: Negative for skin rash, bleeding tendency. Rest all negative. PHYSICAL EXAMINATION: GENERAL: This is a well-built male, in no apparent distress. VITAL SIGNS: Temperature 98.7, pulse 82, respiratory rate , blood pressure 135/95. HEENT: Atraumatic, normocephalic. Oral mucosa is moist. NECK: Supple. CV: S1 and S2 heard. Regular rate and rhythm. RESPIRATORY: Clear. GI: Abdomen is soft. MUSCULOSKELETAL: 2+ edema. DERMATOLOGIC: No skin rash. NEUROLOGIC: Alert and awake. PSYCHIATRIC: Mood and affect normal. LABORATORY DATA: Not done. ASSESSMENT AND PLAN: 1. End-stage renal disease. Plan is to continue dialysis Sunday, Sunday, and Sunday. The patient is due for dialysis since he missed dialysis today. Plan for dialysis at the hospital. 2. Edema, remove fluid. 3. Hypertension, stable. 4. Anemia of chronic disease. 5. Plan is to continue his regular treatment per schedule and continue close monitoring. Thank you for the consult. Job ID: [id number]
== END 2018-11-27 21:50 | disposition home or self-care (01) ==
LOC: ERS 15:33
DX: T82.838A Hemorrhage due to vascular prosthetic devices, implants and grafts, initial encounter (principal); I12.0 Hypertensive chronic kidney disease with stage 5 chronic kidney disease or end stage renal disease; E11.22 Type 2 diabetes mellitus with diabetic chronic kidney disease; N18.6 End stage renal disease; N40.0 Benign prostatic hyperplasia without lower urinary tract symptoms; E78.5 Hyperlipidemia, unspecified; E78.2 Mixed hyperlipidemia; F20.9 Schizophrenia, unspecified; F31.9 Bipolar disorder, unspecified; Z86.711 Personal history of pulmonary embolism; Z87.891 Personal history of nicotine dependence; Z79.899 Other long term (current) drug therapy; Z86.718 Personal history of other venous thrombosis and embolism; Z99.2 Dependence on renal dialysis; Z79.4 Long term (current) use of insulin; Z79.01 Long term (current) use of anticoagulants
CPT/HCPCS: 99282

== ENCOUNTER → 2018-11-27 | Day surgery (SDC) | payer OTHER ==
[~2018-11-27] MED LIST: Iopamidol 370 76% 100 ML VIAL ONE; Silver Nitrate Application 1 EACH TOP SCH; Sodium Bicarbonate 2.5 MEQ/5 ML VIAL ONE
[2018-11-27 08:40] LABS: #Eosinphils 0.2 thou/uL (0.0-0.7); #Lymphocytes 0.8 thou/uL (1.20-3.40); #Monocytes 0.4 thou/uL (0.11-0.59); #Neutrophils 5.9 thou/uL (1.40-6.50); %Basophils 0.1 % (0.0-1.0); %Eosinophils 2.2 % (0.0-10.0); %Lymphocytes 10.8 % (21.0-51.0); %Monocytes 5.5 % (0.0-10.0); %Neutrophils 81.5 % (42.0-75.0); Hemoglobin 9.7 g/dL (14.0-18.0); Mean Corpuscular HGB CONC 31.8 g/dL (32.0-36.0); Mean Corpuscular Hemoglobin 29.7 pg (27.0-31.0); Mean Corpuscular Volume 93.4 fL (78.0-98.0); Mean Platelet Volume 6.8 fL (7.4-10.4); Platelet Count 269 thou/uL (130-400); RBC Distribution Width 17.7 % (11.5-14.5); Red Blood Cell (RBC) Count 3.27 mill/uL (4.70-6.10); White Blood Cell (WBC) Count 7.3 thou/uL (4.8-10.8)
[2018-11-27 08:44] LABS: INR-International Normal Ratio 1.1; PTT 31.1 SEC (22.9-36.1); Prothrombin Time 14.6 SEC (12.0-14.7)
--- NOTE | 2018-11-27 10:29 | CT ---
CT ABDOMEN WITH AND WITHOUT CONTRAST: CT PELVIS WITH AND WITHOUT CONTRAST: INDICATIONS: Gross hematuria. FINDINGS: There is mild pleural-based density at the imaged lower chest. No consolidation is seen. Diffuse as cites of the abdomen and pelvis is present. Generalized heterogeneous enhancement pattern of the liver may relate to underlying hepatocellular disease/dysfunction. The spleen is normal in size. Th e kidneys are atrophic, more notable on the left. No adrenal mass or acute pancreatic abnormality identified. The bowel is incompletely evaluated without enteric contrast. There is urinary bladder wall thickening with an indwelling Ram catheter. Mild distention of the u rinary bladder is present. Delayed imaging reveals a small volume of excreted contrast within the bilateral renal collecting systems. There is atherosclerotic vascular disease. Osseous degenerative changes are present. IMPRESSION: 1. Prominent wall thickening of the urinary bladder, which may be on the basis of neurogenic bladder, chronic outlet obstruction, or cystitis. Correlate clinically. Indwelling Ram catheter is present with small volume of urinary distention. 2. Diffuse abdominal and pelvic ascites. 3. Atrophic kidneys. Small volume of excreted contrast is seen on delayed imaging within the renal collecting systems. Transcribed Date/Time: 11/27/2018 10:40 AM
[2018-11-27 11:02] VITALS: BMI 38.7
--- NOTE | 2018-11-27 16:25 | CT ---
CT-guided suprapubic catheter placement: DATE: 11/27/2018 HISTORY: 48-year-old male with neurogenic bladder. TECHNIQUE: Signed informed consent obtained. Patient placed supine on CT table. Initial scan at 12:22 PM demonst rates additional excreted IV contrast material increasing the volume of the urinary bladder since the CT scan performed earlier today at 9:49 AM. However, this was not sufficient for percutaneous sup rapubic catheter placement. Therefore, an additional 300 mL of normal saline was infused into the indwelling Ram catheter. Midline skin of the lower abdominal pannus was prepared and draped in usua l sterile fashion. 25-gauge needle used to apply buffered lidocaine. Blade was used to make a skin incision. Tract was widened with sterile hemostat. 22-gauge AccuStick needle was advanced through the skin incision under step CT guidance, and was used to apply buffered lidocaine at midline anterior abdominal wall to rectus abdominis. 12 British Ram catheter mounted on suprapubic trocar lubricated with sterile lidocaine jelly. Under step CT guidance, the trocar with mounted catheter was advanced to the anterior bladder wall. Next, the entire unit with trocar was rapidly advanced into the bladder lumen. Trocar was removed. The suprapubic Ram catheter balloon was inflated with saline solution. It was attached to external drainage bag. It was retracted to appropriate position and sutu red in place in the skin. Patient tolerated the procedure well. However, despite manual compression applied, there was venous bleeding from the puncture site at the skin for more than 1.5 hours. Finall y, hemostasis was achieved using silver nitrate. There is no other complication. IMPRESSION: 1. Successful CT-guided placement of suprapubic catheter. 2. Continued bleeding from puncture site for more than 1.5 hours, despite manual compression. Hemosta sis was finally achieved using silver nitrate.
== END ==
LOC: CT 08:17
PROVIDERS: ATTEND Urology
PROC: 0T9B30Z Drainage of Bladder with Drainage Device, Percutaneous Approach (ICD-10-PCS; principal; 2018-11-27)
DX: N31.9 Neuromuscular dysfunction of bladder, unspecified (principal); R31.0 Gross hematuria; R18.8 Other ascites; N26.1 Atrophy of kidney (terminal); Z88.5 Allergy status to narcotic agent; Z88.6 Allergy status to analgesic agent; Z88.8 Allergy status to other drugs, medicaments and biological substances; Z91.018 Allergy to other foods; Z91.040 Latex allergy status
CPT/HCPCS: 36415; 51102; 74178; 77002; 85025; 85610; 85730; 90935; C2627; G0257; Q9967

== ENCOUNTER 2018-12-13 13:19 | Inpatient (IN) | payer OTHER ==
[2018-12-13 13:47] LABS: #Eosinphils 0.1 thou/uL (0.0-0.7); #Lymphocytes 0.6 thou/uL (1.20-3.40); #Monocytes 0.5 thou/uL (0.11-0.59); %Eosinophils 0.4 % (0.0-10.0); %Lymphocytes 3.9 % (21.0-51.0); %Monocytes 2.9 % (0.0-10.0); %Neutrophils 92.8 % (42.0-75.0); Hemoglobin 11.3 g/dL (14.0-18.0); Mean Corpuscular HGB CONC 33.3 g/dL (32.0-36.0); Mean Corpuscular Hemoglobin 31.4 pg (27.0-31.0); Mean Corpuscular Volume 94.2 fL (78.0-98.0); Platelet Count 226 thou/uL (130-400); RBC Distribution Width 18.1 % (11.5-14.5); Red Blood Cell (RBC) Count 3.59 mill/uL (4.70-6.10); White Blood Cell (WBC) Count 16.2 thou/uL (4.8-10.8)
[2018-12-13 14:06] LABS: ALT (SGPT) 8 U/L (8-55); AST (SGOT) 12 U/L (5-34); Albumin 3.9 g/dL (3.5-5.0); Alkaline Phosphatase 203 U/L (40-150); Anion Gap 13 mmol/L (10-20); BUN (Urea Nitrogen) 25 mg/dL (8.9-20.6); Bilirubin, Total 0.9 mg/dL (0.2-1.2); Calc. Creatinine Clearance 0 mL/min (70-130); Calcium 8.9 mg/dL (7.8-10.44); Carbon Dioxide 32 mmol/L (22-29); Chloride 94 mmol/L (98-107); Estimated GFR-MDRD 11; Globulin 4.3 g/dL (2.4-3.5); Glucose 202 mg/dL (70-105); Potassium 3.9 mmol/L (3.5-5.1); Protein, Total 8.2 g/dL (6.0-8.3); Sodium 135 mmol/L (136-145)
--- NOTE | 2018-12-13 14:12 | RAD ---
EXAM: Portable chest PROVIDED CLINICAL HISTORY: Leg pain COMPARISON: 10/02/2018 FINDINGS: Cardiac and mediastinal silhouette is stable in appearance. No focal consolidation, pleural fluid or pneumothorax evident. IMPRESSION: No evidence for an acute cardiopulmonary process.
[2018-12-13] MEDS ORDERED: Acetaminophen 500 MG TAB ONE (16:39)
[2018-12-13 16:43] LABS: Bilirubin Moderate (Negative); Blood, Urine Moderate (Negative); Glucose, Urine (Dipstick) Negative (Negative); Leukocyte Large (Negative); Nitrite Negative (Negative); Protein, Urine (Dipstick) > or equal to 300 mg/dL (Neg-Trace); Urobilinogen 0.2 mg/dL (Less than 2)
[2018-12-13 16:48] LABS: Clarity Turbid (Clear)
[2018-12-13 17:02] LABS: WBC/HPF Greater Than 50 HPF (0-3)
[2018-12-13 17:03] LABS: Bacteria/HPF 2+ HPF (None Seen); Squamous Epithelial 0-3 HPF (0-3); Transitional Epithelial 0-3 HPF (None Seen); Yeast-Budding 3+ HPF (None Seen); Yeast-Hyphae 2+ HPF (None Seen)
[2018-12-13] MEDS ORDERED: Dextrose 5% in Water 1,000 ML IV PRN (20:21)
[2018-12-13] MEDS ORDERED: Dextrose 50% Abboject 50 ML SYRINGE IVP PRN (20:21)
[2018-12-13] MEDS ORDERED: Benzonatate 100 MG CAP PO PRN (20:26)
[2018-12-13] MEDS: HumaLOG 300 UNITS/3 ML VIAL SC PRN (22:05)
[2018-12-13] MEDS: Gabapentin 100 MG CAP PO SCH (22:08)
[2018-12-13] MEDS: Docusate 100 MG CAP PO SCH (22:08)
[2018-12-13] MEDS: Apixaban 2.5 MG TAB PO SCH (22:08)
[2018-12-13] MEDS: Sucralfate 1 GM TAB PO SCH (22:08)
[2018-12-13] MEDS: Lactinex Tablet PO SCH (22:09)
[2018-12-13] MEDS: Carvedilol 3.125 MG TAB PO SCH (22:09)
[2018-12-14] MEDS: Piperacillin/Tazobactam 2.25 GM in Sodium Chloride 0.9% 100 ML IVPB SCH ×4 (00:05→18:44)
[2018-12-14] MEDS: Acetaminophen 500 MG TAB PO PRN (02:07)
[2018-12-14] MEDS: Sucralfate 1 GM TAB PO SCH ×2 (09:32→21:55)
[2018-12-14] MEDS: Tamsulosin HCl 0.4 MG CAP PO SCH (09:32)
[2018-12-14] MEDS: Bisacodyl 5 MG TAB PO SCH (09:32)
[2018-12-14] MEDS: Atorvastatin Calcium 20 MG TAB PO SCH (09:32)
[2018-12-14] MEDS: Lactinex Tablet PO SCH ×2 (09:32→21:54)
[2018-12-14] MEDS: Gabapentin 100 MG CAP PO SCH ×3 (09:32→21:55)
[2018-12-14] MEDS: Docusate 100 MG CAP PO SCH ×2 (09:32→21:55)
[2018-12-14] MEDS: Loratadine 10 MG TAB PO SCH (09:33)
[2018-12-14] MEDS: Carvedilol 3.125 MG TAB PO SCH ×2 (09:33→21:54)
[2018-12-14] MEDS: Apixaban 2.5 MG TAB PO SCH ×2 (09:33→21:54)
[2018-12-14] MEDS: Calcium Acetate 667 MG CAP PO SCH ×3 (09:35→18:37)
[2018-12-14 12:45] LABS: #Eosinphils 0.1 thou/uL (0.0-0.7); #Lymphocytes 0.9 thou/uL (1.20-3.40); #Monocytes 0.6 thou/uL (0.11-0.59); #Neutrophils 7.5 thou/uL (1.40-6.50); %Eosinophils 1.4 % (0.0-10.0); %Lymphocytes 9.4 % (21.0-51.0); %Monocytes 6.6 % (0.0-10.0); %Neutrophils 82.6 % (42.0-75.0); Hemoglobin 9.6 g/dL (14.0-18.0); Mean Corpuscular Hemoglobin 30.9 pg (27.0-31.0); Mean Corpuscular Volume 93.6 fL (78.0-98.0); Mean Platelet Volume 7.5 fL (7.4-10.4); Platelet Count 191 thou/uL (130-400); RBC Distribution Width 17.8 % (11.5-14.5); Red Blood Cell (RBC) Count 3.09 mill/uL (4.70-6.10); White Blood Cell (WBC) Count 9.1 thou/uL (4.8-10.8)
[2018-12-14 13:04] LABS: Anion Gap 11 mmol/L (10-20); BUN (Urea Nitrogen) 43 mg/dL (8.9-20.6); Calc. Creatinine Clearance 0 mL/min (70-130); Calcium 8.4 mg/dL (7.8-10.44); Carbon Dioxide 31 mmol/L (22-29); Chloride 94 mmol/L (98-107); Estimated GFR-MDRD 8; Glucose 299 mg/dL (70-105); Potassium 4.1 mmol/L (3.5-5.1); Sodium 132 mmol/L (136-145)
[2018-12-14] MEDS: HumaLOG 300 UNITS/3 ML VIAL SC PRN ×2 (13:21→21:55)
[2018-12-14] MEDS: Vancomycin HCl 1 GM in Premix Bag 1 BAG IVPB SCH (16:36)
--- NOTE | 2018-12-14 16:40 | CON ---
DATE OF CONSULTATION: 12/14/2018 CONSULTING PHYSICIAN: Kyler Dumont MD REASON FOR CONSULT: End-stage renal disease evaluation. REASON FOR ADMISSION: Chills. HISTORY OF PRESENT ILLNESS: This is a 48-year-old male with history of end-stage renal disease, diabetes, hyperlipidemia, GERD, BPH, came to the hospital with above complaints and is being evaluated. Nephrology was consulted, maintenance hemodialysis. He gets dialysis Sunday, Sunday, and Sunday. He could not finish the dialysis yesterday. Denies any chest pain. No nausea or vomiting. He is feeling better. No chills this morning. PAST MEDICAL HISTORY: Positive for type 2 diabetes, hyperlipidemia, end-stage renal disease, DVT, GERD, BPH, pulmonary embolism. PAST SURGICAL HISTORY: Tonsillectomy, lumbar spine surgery, jaw surgery, cardiac cath. MEDICATIONS: Home medications reviewed. ALLERGIES: IBUPROFEN, MORPHINE, AND NONSTEROIDALS. SOCIAL HISTORY: He lives in a fci. No smoking, alcohol, or illicit drug abuse. History of smoke in the past. FAMILY HISTORY: No significant kidney disease. REVIEW OF SYSTEMS: CONSTITUTIONAL: Negative for weight loss or gain, ability to conduct usual activities. SKIN: Negative for rash, itching. EYES: Negative for double vision, pain. ENT/MOUTH: Negative for nose bleeding, neck stiffness, pain, tenderness. CARDIOVASCULAR: Negative for palpitations, dyspnea on exertion, orthopnea. RESPIRATORY: Negative for shortness of breath, wheezing, cough, hemoptysis, fever or night sweats. GASTROINTESTINAL: Negative for poor appetite, abdominal pain, heartburn, nausea, vomiting, constipation, or diarrhea. GENITOURINARY: Negative for urgency, frequency, dysuria, nocturia. MUSCULOSKELETAL: Negative for pain, swelling. NEUROLOGIC/PSYCHIATRIC: Negative for anxiety, depression. ALLERGY/IMMUNOLOGIC: Negative for skin rash, bleeding tendency. PHYSICAL EXAMINATION: GENERAL: This is an obese male, in no apparent distress. VITAL SIGNS: Temperature 98.3, pulse 91, respiratory rate 20, and blood pressure 123/78. HEENT: Atraumatic and normocephalic. Oral mucosa moist. NECK: Supple. CV: S1, S2 heard. Rate and rhythm regular. RESPIRATORY: Clear to auscultation. GI: Abdomen is soft. MUSCULOSKELETAL: No tenderness. No edema. DERMATOLOGIC: No skin rash. NEUROLOGIC: Alert, awake, and oriented X3. No focal neurologic deficits. Moving all the extremities. PSYCHIATRIC: Mood and affect normal. ocular history. LABORATORY DATA: Potassium is 3.8, BUN is 25, creatinine is 5.5. Hemoglobin is 11.3. ASSESSMENT AND PLAN: 1. End-stage renal disease. Plan is to have 2 hours of dialysis today to finish the dialysis from yesterday. 2. Edema, controlled. 3. Hypertension. 4. Anemia of chronic disease. We will discontinue antibiotics. We will monitor vancomycin level, avoid level more than 20. We will continue on dialysis as tolerated. Job ID: [id number]
--- NOTE | 2018-12-14 17:13 | CON ---
DATE OF CONSULTATION: 12/14/2018 CONSULTING: Dr. Dumont. CONSULTED: Dr. Bradshaw. REASON FOR CONSULTATION: Possible urinary tract infection with SP tube and foul smelling urine. HISTORY OF PRESENT ILLNESS: Mr. Cristina is a 48-year-old male, who is known to me on outpatient basis. He had previously seen me in the office for chronic urinary retention with neurogenic bladder. He also has end-stage renal disease and is on dialysis. Renal disease and neurogenic bladder, both secondary to diabetes, which is not well controlled in this individual. He was receiving dialysis and then became hypotensive and febrile. He started feeling significantly ill and was transferred to the hospital, where he was admitted to the Hospitalist Service. He is currently receiving IV antibiotics. He states he is feeling much better now. His SP tube was placed approximately about two and half weeks ago. Due to some bleeding at that time and the small nature of the SP tube, I requested the Ram catheter be left in place. He still has both catheters in place. The nursing staff reports that urine has a foul odor and is somewhat turbid, but otherwise has been draining without problem. ALLERGIES: 1. IBUPROFEN. 2. LATEX. 3. MUSHROOMS. 4. METFORMIN. 5. MORPHINE. 6. NSAIDS. HOME MEDICATIONS: 1. Flomax. 2. Atorvastatin. 3. Colace. 4. Coreg. 5. Tylenol. 6. Gabapentin. 7. Lantus. 8. Lexapro. 9. Tessalon. 10. Eliquis. 11. Dulcolax. 12. Sucralfate. 13. Protonix. 14. Simethicone. 15. Zofran. 16. Tylenol with codeine. 17. Loratadine. 18. Lomotil. 19. Hydralazine. 20. Guaifenesin. 21. Flonase. 22. Seroquel. 23. PhosLo. 24. Omnicef. PAST MEDICAL HISTORY: 1. Electrolyte disturbance. 2. Neurogenic bladder. 3. Hydronephrosis. 4. DVT. 5. Type 2 diabetes, noncompliant. 6. Gastroesophageal reflux disease. 7. BPH. 8. Hyperlipidemia. 9. Hypertriglyceridemia. 10. Hypertension. 11. Pulmonary embolism. 12. End-stage renal disease. 13. Pancreatitis. 14. DVT. 15. Atrial fibrillation. PAST SURGICAL HISTORY: 1. Tonsillectomy. 2. Lumbar spine surgery. 3. Right wrist surgery. 4. Jaw surgery. 5. Nasal surgery. 6. Eye socket repair. 7. Heart catheterization. 8. IVC filter placement. 9. Left upper extremity dialysis fistula. 10. SP tube placement. SOCIAL HISTORY: The patient denies alcohol abuse or drug use or smoking history. FAMILY HISTORY: Noncontributory. REVIEW OF SYSTEMS: Reviewed and negative other than what was commented on the HPI. PHYSICAL EXAMINATION: VITAL SIGNS: Temperature 98.3, pulse 78, respirations 20, blood pressure 123/78, saturation 100% on room air. GENERAL: No apparent distress, communicating, and alert, somewhat disheveled, appears stated age. HEENT: Normocephalic and atraumatic. Pupils are symmetric and round. Trachea midline. Moist mucous membranes. CARDIOVASCULAR: Regular rate, irregular rhythm. Normal S1 and S2. Symmetric pulses. CHEST: No increased work of breathing. Symmetric expansion. LUNGS: Clear anteriorly. ABDOMEN: Soft, nontender, and nondistended. Positive bowel sounds. No organomegaly. No hernias. SP tube in place, draining veronika colored urine. : Ram catheter in place, secured, draining veronika colored urine. No significant turbidity. Mild odor. EXTREMITIES: 2+ edema bilaterally. Onychomycosis of the lower extremity nails. No clubbing or cyanosis. SKIN: Warm and dry. No rashes or lesions. Good turgor. Previously noted onychomycosis of the lower extremities NEUROLOGIC: Cranial nerves 2 through 12 grossly intact. No focal motor deficits. Decreased sensory on the lower extremities. MUSCULOSKELETAL: No joint deformities or joint erythema noted. Full range of motion. No inflammation in the hands. LYMPHS: No cervical, supraclavicular, axillary, or popliteal lymphadenopathy noted. PSYCH: Alert and oriented x3. Appropriate mood and affect. LABORATORY EVALUATION: Full set of labs are in the [facility] system, which I have reviewed. Of note, white count is 9.1, down from 16,000, hemoglobin 9.6, creatinine is 7.2, blood sugar is 299. Blood cultures are negative bilaterally but are currently proceeding. ASSESSMENT AND PLAN: A 48-year-old male with SP tube and indwelling Ram secondary to neurogenic bladder with recent episode of weakness, malaise, and possible infection and sepsis. He is currently doing much better on antibiotics with good improvement in white count. The urinary tract is probably likely origin. Fistula infection is also potentially possible, although there does not appear to be any infection at this site. In either case, I do agree with treatment with antibiotics as the patient has improved with decreasing white count. I am not sure if the urine culture was taken on this admission, but antibiotics can be tailored down to culture results. For the current time given the small nature of the SP tube, I would still recommend the patient keep both the indwelling Ram catheter and SP tube for now. He has scheduled followup with me already for SP tube change and increase in size; at which point, we will remove the Ram catheter. He will be chronically colonized more forever have positive urine cultures and antibiotics should be tailored only to when the patient is symptomatic as he was on this admission. The patient would require treatment for 7 days if he has a complicated urinary tract infection. There is nothing really further for me to do on this admission. It is too soon to change his SP tube and again I would not recommend removal of the Ram yet at this time. As such, I would just treat with antibiotics for 7 days and the patient keep follow up with me on an outpatient basis. Irrigation can be performed p.r.n. through the SP tube and out through the Ram as needed if there is any turbidity or cloudiness of the urine if there is concerns about clogging. Job ID: [id number]
--- NOTE | 2018-12-14 21:23 | HP ---
CHIEF COMPLAINT: Right lower leg pain and swelling. HISTORY OF PRESENT ILLNESS: Mr. Cristina is a 48-year-old male with past medical history of end-stage renal disease, on hemodialysis; hypertension; diabetes mellitus; peripheral vascular disease, was found to have fever as well as chills and right leg pain and swelling when he was at dialysis. His dialysis was actually stopped in the middle and he was transferred to the hospital where he started having lot of chills and shaking. The patient also states he has not been sleeping well the last few days. He noticed a lot of swelling in the right lower leg with redness and pain and he had temperature of 101. The patient was transferred to the ER, where he was evaluated and found to have fever as well as possible cellulitis of right lower leg. The patient had received vancomycin, Levaquin, and Tylenol in the ER and admitted for further evaluation and management. PAST MEDICAL HISTORY: 1. History of end-stage renal disease, on hemodialysis. 2. Diabetes mellitus. 3. Hypertension. 4. Benign prostatic hypertrophy. 5. Hyperlipidemia. 6. History of pancreatitis. 7. History of pulmonary embolism. PAST SURGICAL HISTORY: Status post lumbar spine surgery, status post right wrist surgery, status post fistula placement, status post IVC filter placement, status post suprapubic cystostomy. CURRENT MEDICATIONS: The patient is on; 1. Seroquel 50 mg at bedtime. 2. Tessalon Perles p.r.n. 3. Eliquis 2.5 b.i.d. 4. Gabapentin 100 mg t.i.d. 5. Dulcolax p.r.n. 6. Colace 100 mg b.i.d. 7. Coreg 3.125 b.i.d. 8. Atorvastatin 20 mg daily. 9. Claritin 10 mg daily. 10. Floranex 2 tablets b.i.d. 11. Tylenol p.r.n. 12. Flomax 0.4 mg q.p.m. 13. Carafate b.i.d. ALLERGIES: LATEX, MORPHINE, NSAIDS, TRAMADOL, METFORMIN, AND IBUPROFEN. FAMILY HISTORY: Nothing contributory. SOCIAL HISTORY: Patient lives in group home. No history of smoking. No history of alcohol. REVIEW OF SYSTEMS: CARDIOVASCULAR: No chest pain or shortness of breath. RESPIRATORY: Has fever. No cough. GASTROINTESTINAL: No nausea, vomiting, abdominal pain. CENTRAL NERVOUS SYSTEM: No headache. No dizziness. PHYSICAL EXAMINATION: GENERAL: The patient is alert, awake, and oriented x3. VITAL SIGNS: Temperature 100.6, respirations 20, blood pressure 133/80. HEENT: Head is normocephalic and atraumatic. Pupils are equal and reactive. Nasopharynx is pale and dry. Hard and soft palate, no lesions. SKIN: Skin turgor decreased. NECK: Supple. No JVD. LUNGS: Bilateral air entry. No rales, no rhonchi. HEART: S1 and S2. Regular. ABDOMEN: Soft. No distention. No tenderness. Normal bowel sounds present. Suprapubic catheter in place. CENTRAL NERVOUS SYSTEM: No focal deficits. EXTREMITIES: Right lower leg, there is marked swelling of lower leg including the foot and there is erythema and it is tender and warm to touch. LABORATORY DATA: CBC shows WBC is 16, hemoglobin 11.3, hematocrit 33, platelets 226. Metabolic panel; sodium 135, potassium 3.9, chloride 94, CO2 of 32, BUN 25, creatinine 5.5, glucose 292. Urinalysis reveals wbc greater than 50, bacteria 2+, yeast positive. ASSESSMENT: 1. Cellulitis, right lower leg. 2. End-stage renal disease, on hemodialysis. 3. Hypertension. 4. Diabetes mellitus. 5. Hyperlipidemia. 6. Neurogenic bladder. 7. Possible urinary tract infection. PLAN: 1. Vital signs q.4 hours. 2. Activity as tolerated. 3. Allergies, multiple. 4. Hep-Lock. 5. Zosyn 2.25 g IV piggyback q.6 hours. 6. Vancomycin 1 g IV piggyback during dialysis. 7. Accu-Chek before meals and at bedtime, sliding scale mild with regular insulin. 8. Continue his group home medications. 9. Nephrology consult. 10. Urology consult. Job ID: [id number]
[2018-12-15] MEDS: Piperacillin/Tazobactam 2.25 GM in Sodium Chloride 0.9% 100 ML IVPB SCH ×5 (00:18→23:17)
[2018-12-15] MEDS: Acetaminophen 500 MG TAB PO PRN (02:47)
[2018-12-15 04:12] LABS: #Eosinphils 0.1 thou/uL (0.0-0.7); #Lymphocytes 0.7 thou/uL (1.20-3.40); #Monocytes 0.6 thou/uL (0.11-0.59); #Neutrophils 6.6 thou/uL (1.40-6.50); %Basophils 0.1 % (0.0-1.0); %Eosinophils 1.5 % (0.0-10.0); %Lymphocytes 8.7 % (21.0-51.0); %Monocytes 7.7 % (0.0-10.0); Hemoglobin 9.7 g/dL (14.0-18.0); Mean Corpuscular HGB CONC 33.1 g/dL (32.0-36.0); Mean Corpuscular Hemoglobin 31.3 pg (27.0-31.0); Mean Corpuscular Volume 94.6 fL (78.0-98.0); Mean Platelet Volume 7.6 fL (7.4-10.4); Platelet Count 197 thou/uL (130-400); RBC Distribution Width 17.9 % (11.5-14.5); Red Blood Cell (RBC) Count 3.08 mill/uL (4.70-6.10); White Blood Cell (WBC) Count 8.1 thou/uL (4.8-10.8)
[2018-12-15 04:18] LABS: Anion Gap 13 mmol/L (10-20); BUN (Urea Nitrogen) 36 mg/dL (8.9-20.6); Calc. Creatinine Clearance 0 mL/min (70-130); Calcium 8.4 mg/dL (7.8-10.44); Carbon Dioxide 30 mmol/L (22-29); Chloride 93 mmol/L (98-107); Estimated GFR-MDRD 10; Glucose 255 mg/dL (70-105); Potassium 3.9 mmol/L (3.5-5.1); Sodium 132 mmol/L (136-145)
[2018-12-15] MEDS: HumaLOG 300 UNITS/3 ML VIAL SC PRN ×3 (06:55→19:37)
[2018-12-15] MEDS: Calcium Acetate 667 MG CAP PO SCH ×3 (09:10→19:37)
[2018-12-15] MEDS: Gabapentin 100 MG CAP PO SCH ×3 (09:11→20:32)
[2018-12-15] MEDS: Tamsulosin HCl 0.4 MG CAP PO SCH (09:11)
[2018-12-15] MEDS: Loratadine 10 MG TAB PO SCH (09:11)
[2018-12-15] MEDS: Docusate 100 MG CAP PO SCH ×2 (09:11→20:32)
[2018-12-15] MEDS: Bisacodyl 5 MG TAB PO SCH (09:11)
[2018-12-15] MEDS: Atorvastatin Calcium 20 MG TAB PO SCH (09:11)
[2018-12-15] MEDS: Carvedilol 3.125 MG TAB PO SCH ×2 (09:11→20:32)
[2018-12-15] MEDS: Sucralfate 1 GM TAB PO SCH ×2 (09:11→20:32)
[2018-12-15] MEDS: Apixaban 2.5 MG TAB PO SCH ×2 (09:12→20:32)
[2018-12-15] MEDS: Lactinex Tablet PO SCH ×2 (13:33→20:32)
--- NOTE | 2018-12-15 15:08 | PRG ---
DATE OF SERVICE: 12/15/2018 SUBJECTIVE: Patient was seen and examined at bedside and overnight events noted. Patient denies shortness of breath or cramps or chest pain or palpitation. No Nausea or vomiting or diarrhea or fever or chills. OBJECTIVE: GENERAL: Stable built-male, in no apparent distress. VITAL SIGNS: Temperature 98.4, pulse 85, respiratory rate 18, blood pressure 135/90. Musculoskeletal : No tenderness, No edema HEENT: Atraumatic normocephalic Neck: Supple Cardiovascular: S1S2 heard, Rate and rhythm regular Respiratory: Clear to auscultation Gastrointestinal: Abdomen is soft Dermatologic : No skin rash Neurologic: Alert and awake and oriented X3 No focal neurologic deficits. Moving all the extremities. Psychiatric: Mood and affect normal LABORATORY DATA: Potassium 3.9, BUN is 36, creatinine is 6.1. ASSESSMENT AND PLAN: 1. End-stage renal disease, continue on hemodialysis. 2. Edema, controlled. 3. Hypertension. 4. Anemia of chronic disease. Plan to continue on dialysis as tolerated. We will continue dialysis on Sunday, Sunday, and Sunday. Job ID: [id number] [facility]
[2018-12-15] MEDS ORDERED: Fluconazole 100 MG TAB PO SCH (15:45)
[2018-12-15] MEDS: Insulin Glargine 15 UNITS in Pre-Filled Syringe 1 EACH SC SCH (20:33)
[2018-12-16] MEDS: Piperacillin/Tazobactam 2.25 GM in Sodium Chloride 0.9% 100 ML IVPB SCH ×4 (05:03→23:07)
[2018-12-16] MEDS: HumaLOG 300 UNITS/3 ML VIAL SC PRN ×2 (05:54→17:41)
[2018-12-16] MEDS: Vancomycin HCl 1 GM in Premix Bag 1 BAG IVPB SCH (11:19)
--- NOTE | 2018-12-16 11:49 | PRG ---
DATE OF SERVICE: 12/16/2018 SUBJECTIVE: Patient was seen and examined at bedside and overnight events noted. Patient denies any shortness of breath or chest pain or palpitation. No history of nausea or vomiting or diarrhea or fever or chills or cramps. OBJECTIVE: GENERAL: This is an obese male, in no apparent distress. VITAL SIGNS: Temperature 98.7, pulse 99, respirations 16, blood pressure 170/112. HEENT: Atraumatic, normocephalic. Oral mucosa is moist NECK: Supple. CARDIOVASCULAR: S1, S2 heard. Rate and rhythm regular. RESPIRATORY: Clear to auscultation. GASTROINTESTINAL: Abdomen is soft. MUSCULOSKELETAL: No tenderness. No edema. DERMATOLOGIC: No skin rash. NEUROLOGIC: Alert and awake and oriented X3. No focal neurologic deficits. Moving all the extremities. PSYCHIATRIC: Mood and affect normal. LABORATORY DATA: Potassium 3.9, BUN is 36, creatinine is 6.1. ASSESSMENT AND PLAN: 1. End-stage renal disease, currently on hemodialysis. 2. Edema, controlled. 3. Hypertension. 4. Anemia of chronic disease. We will continue on dialysis as tolerated. Job ID: [id number]
[2018-12-16] MEDS: Tamsulosin HCl 0.4 MG CAP PO SCH (13:22)
[2018-12-16] MEDS: Docusate 100 MG CAP PO SCH ×2 (13:23→19:40)
[2018-12-16] MEDS: Gabapentin 100 MG CAP PO SCH ×3 (13:23→19:40)
[2018-12-16] MEDS: Lactinex Tablet PO SCH ×2 (13:23→19:39)
[2018-12-16] MEDS: Bisacodyl 5 MG TAB PO SCH (13:24)
[2018-12-16] MEDS: Calcium Acetate 667 MG CAP PO SCH ×3 (13:24→17:42)
[2018-12-16] MEDS: Acetaminophen 500 MG TAB PO PRN ×2 (13:24→19:41)
[2018-12-16] MEDS: Fluconazole 100 MG TAB PO SCH (13:24)
[2018-12-16] MEDS: Sucralfate 1 GM TAB PO SCH ×2 (13:25→19:40)
[2018-12-16] MEDS: Carvedilol 3.125 MG TAB PO SCH ×2 (13:25→19:40)
[2018-12-16] MEDS: Loratadine 10 MG TAB PO SCH (13:25)
[2018-12-16] MEDS: Atorvastatin Calcium 20 MG TAB PO SCH (13:25)
[2018-12-16] MEDS: Apixaban 2.5 MG TAB PO SCH ×2 (13:29→19:39)
--- NOTE | 2018-12-16 16:39 | PQF ---
THERESE WARREN VENKAT R MD [id number] ONC-[id number] CLINICAL DOCUMENTATION IMPROVEMENT CLARIFICATION FORM: ICD-10 Updated PLEASE DO AN ADDENDUM TO THE PROGRESS NOTE WITH ANY DOCUMENTATION UPDATES OR ADDITIONS AND CARRY THROUGH TO DC SUMMARY. THANK YOU. DATE: 12/16/18 ATTN: DR. ANN Please exercise your independent, professional judgment in responding to the clarification form. Clinical indicators are provided on the bottom of this form for your review. Please check appropriate box(es): [ ] Sepsis due to: UTI Due to: Indwelling Kauffman Catheter [ ] Sepsis due to : UTI Due to : Suprapubic Tube [ ] Sepsis Without UTI [ y] Localized infection without sepsis [ ] Other diagnosis [ ] Unable to determine In addition, please specify: Present on Admission (POA): [y ] Yes [ ] No [ ] Unable to determine For continuity of documentation, please document condition throughout progress notes and discharge summary. Thank You. CLINICAL INDICATORS - SIGNS / SYMPTOMS / LABS 12/13 WBC 16.2 12/13 ED PHYSICIAN DX: SEPSIS, RLE CELLULITIS, TEMP 102.1, PULSE 187, 12/14 H &P (THOMASCARMEN) ASSESSMENT: 1) CELLULITIS, RIGHT LOWER LEG. THE PT WAS TRANSFERRED TO THE ER, WHERE HE WAS EVALUATED AND FOUND TO HAVE FEVER WELL POSSIBLE CELLULITIS OF RIGHT LOWER LEG. 7) POSSIBLE URINARY TRACT INFECTION 12/14 CONSULT (DAVID) 48-YEAR OLD MALE WITH SP TUBE AND INDWELLING KAUFFMAN SECONDARY TO NEUROGENIC BLADDER AND RECENT EPISODE OF WEAKNESS, MALAISE, AND POSSIBLE INFECTION AND SEPSIS. THE URINARY TRACT IS PROBABLY LIKELY ORIGIN. FISTULA INFECTION IS ALSO POTENTIALLY POSSIBLE ALTHOUGH THERE DOES NOT APPEAR TO BE ANY INFECTION AT THIS SITE. RISK: DX UTI ( PN 12/12 THADAREDDY) HX OF DIABETES, SUPRAPUBIC CATHETER, INDWELLING KAUFFMAN CATHETER( CONSULT/ 12/14 DAVID) TREATMENTS: UROLOGY CONSULT 12/14/18 ZOSYN IV (12/13-PRESENT) Thank you! Chely (This form is maintained as a part of the permanent medical record) 2014 [employer]. All Rights Reserved DEYANIRA [email or web address] [phone] [facility] HOSPITALJimmy
--- NOTE | 2018-12-16 16:57 | PQF ---
THERESE WARREN VENKAT R MD [id number] ONC-137 [id number] CLINICAL DOCUMENTATION IMPROVEMENT CLARIFICATION FORM: ICD-10 Updated PLEASE DO AN ADDENDUM TO THE PROGRESS NOTE WITH ANY DOCUMENTATION UPDATES OR ADDITIONS AND CARRY THROUGH TO DC SUMMARY. THANK YOU. DATE: 12/16/18 ATTN: DR.V SMITH Please exercise your independent, professional judgment in responding to the clarification form. Clinical indicators are provided on the bottom of this form for your review. Please check appropriate box(s): URINARY TRACT INFECTION [ y] Indwelling kauffman catheter [ y] Suprapubic catheter UTI Site: [ ] Kidney [ ] Ureter [ ] Bladder [ ] Urethra [ y Unable to determine Specify Organism (if known): [ y ] Unknown organism [ ] Other diagnosis [ ] Unable to determine In addition, please specify: Present on Admission (POA): [ y] Yes [ ] No [ ] Unable to determine For continuity of documentation, please document condition throughout progress notes and discharge summary. Thank You. CLINICAL INDICATORS - SIGNS / SYMPTOMS / LABS 12/13 WBC 16.2, TEMP 102.1 12/13 URINE : 2+ BACTERIA, 2+ YEAST, GREATER THAN 50 WBC 12/14 CONSULT (DAVID) 48-YEAR OLD MALE WITH SP TUBE AND INDWELLING KAUFFMAN SECONDARY TO NEUROGENIC BLADDER AND RECENT EPISODE OF WEAKNESS, MALAISE, AND POSSIBLE INFECTION AND SEPSIS. THE URINARY TRACT IS PROBABLY LIKELY ORIGIN. FISTULA INFECTION IS ALSO POTENTIALLY POSSIBLE ALTHOUGH THERE DOES NOT APPEAR TO BE ANY INFECTION AT THIS SITE. THE NURSING STAFF REPORTS THAT THE URINE HAS A FOUL ODOR AND IS SOMEWHAT TURBID. RISK: HX OF SUPRAPUBIC CATHETER, INDWELLING KAUFFMAN CATHETER( CONSULT/ 12/14 DAVID) HX OF NEUROGENIC BLADDER ( CONSULT/ 12/14 DAVID) TREATMENTS: UROLOGY CONSULT 12/14/18 ZOSYN IV (12/13-PRESENT) THANK YOU! FIGUEROA (This form is maintained as a part of the permanent medical record) 2014 [employer]. All Rights Reserved DEYANIRA [email or web address] [phone] [facility] CLINICJimmy
[2018-12-16] MEDS: Insulin Glargine 15 UNITS in Pre-Filled Syringe 1 EACH SC SCH (19:41)
[2018-12-17] MEDS: Piperacillin/Tazobactam 2.25 GM in Sodium Chloride 0.9% 100 ML IVPB SCH (05:08)
[2018-12-17 07:40] VITALS: BP 178/92; TEMP 98.2
[2018-12-17] MEDS: Bisacodyl 5 MG TAB PO SCH (08:05)
[2018-12-17] MEDS: Calcium Acetate 667 MG CAP PO SCH ×2 (08:06→12:07)
[2018-12-17] MEDS: Tamsulosin HCl 0.4 MG CAP PO SCH (08:07)
[2018-12-17] MEDS: Apixaban 2.5 MG TAB PO SCH (08:07)
[2018-12-17] MEDS: Docusate 100 MG CAP PO SCH (08:07)
[2018-12-17] MEDS: Gabapentin 100 MG CAP PO SCH (08:07)
[2018-12-17] MEDS: Fluconazole 100 MG TAB PO SCH (08:07)
[2018-12-17] MEDS: Loratadine 10 MG TAB PO SCH (08:07)
[2018-12-17] MEDS: Sucralfate 1 GM TAB PO SCH (08:07)
[2018-12-17] MEDS: Atorvastatin Calcium 20 MG TAB PO SCH (08:07)
[2018-12-17] MEDS: Lactinex Tablet PO SCH (08:07)
[2018-12-17] MEDS: Carvedilol 3.125 MG TAB PO SCH (08:07)
--- NOTE | 2018-12-17 08:38 | PRG ---
DATE OF SERVICE: 12/17/2018 SUBJECTIVE: A 48-year-old gentleman being seen for end-stage renal disease. The patient denied any nausea, vomiting, or chest pain. OBJECTIVE: See above. The patient is awake and alert, in no acute distress. VITAL SIGNS: Afebrile, pulse 82, breathing 16, blood pressure 150/97. GENERAL APPEARANCE AND MENTAL STATUS: Fair. HEAD/NECK: Normocephalic. Atraumatic. EYES: EOMI. No deformity. EARS: Clear. No ulcers. NOSE: Intact. No lesions. MOUTH: Clear. No discharge. THROAT: Clear. No exudate. LUNGS: Clear. No crackles. CARDIAC: S1, S2. No rub. ABDOMEN: Benign. Bowel sounds positive. GENITALIA/RECTUM: Ram absent. BACK/EXTREMITIES: Edema 0+. NEUROLOGICAL: Alert and motor intact. SKIN: LYMPHATICS: LABORATORY DATA: Labs are reviewed. ASSESSMENT AND PLAN: 1. Stage 6 chronic kidney disease. Plan dialysis. 2. Hypertension, stable. 3. Anemia, stable. 4. Medication based on GFR appropriate. Job ID: [id number]
[2018-12-17] MEDS ORDERED: Carvedilol 3.125 MG TAB PO SCH (10:15)
[2018-12-17] MEDS: Acetaminophen 500 MG TAB PO PRN (12:08)
[2018-12-17] MEDS ORDERED: Escitalopram Oxalate 20 mg Tablet PO SCH (21:00)
[2018-12-17] MEDS ORDERED: Carvedilol 6.25 MG TAB PO SCH (21:00)
--- NOTE | 2018-12-18 15:11 | DIS ---
DATE OF ADMISSION: 12/13/2018 DATE OF DISCHARGE: 12/17/2018 ADMITTING DIAGNOSES: 1. Cellulitis of right lower leg. 2. End-stage renal disease. 3. Hypertension. 4. Diabetes mellitus. 5. Hyperlipidemia. 6. Neurogenic bladder. 7. Possible urinary tract infection. FINAL DIAGNOSES: 1. Cellulitis of right lower leg, improved. 2. End-stage renal disease, on hemodialysis. 3. Hypertension. 4. Diabetes mellitus. 5. Hyperlipidemia. BRIEF SUMMARY OF HOSPITAL COURSE: Mr. Cristina is a 48-year-old male admitted because of right leg swelling with fever and leucocytosis. diagnosed with cellulitis. started on zosyn and vancomycin. his cellulitis improved markedly in next few days. His swelling and erythema improved. pt wa also found to have UTI. added diflucan for yeast in urine. Pt was continue on Hemodialysis. In view of improvement,pt is being discharged back to snf.At the time of discharge he was stable. DISCHARGE MEDICATIONS: Include; 1. Carafate 1 g b.i.d. 2. Coreg 3.125 mg b.i.d. 3. Dulcolax 10 mg at bedtime. 4. asa 81 mg daily 5. Gabapentin 100 mg 3x daily. 6. Colace 100 mg b.i.d. 7. Tylenol 500 mg q.6h. as needed. 8.Diflucan 100 mg daily for 1week. 9. Levaquin 500 mg every 2 days for 10 days 10. Vancomycin 1gm ivpb during dialysis [id number]. Job ID: [id number] MTD[employer]
--- NOTE | 2018-12-19 05:26 | PQF ---
THERESE WARREN VENKAT R MD [id number] ONC-137 [id number] CLINICAL DOCUMENTATION CLARIFICATION FORM: POST DISCHARGE Addendum to original discharge summary date: ____ Late entry note date: __ DATE:12-19-2018 ATTN:Kyler Stewart Please exercise your independent, professional judgment in responding to the clarification form. Clinical indicators are provided on the bottom of this form for your review Can you please specify if the patient indwelling moise was the cause UTI? Please check appropriate box(s): [ y ] UTI is a complication of indwelling moise catheter [ ] UTI is not complication of indwelling moise catheter [ ] Other diagnosis please specify: [ ] Unable to determine CLINICAL INDICATORS: HP 12/[address] Dumont found to have fever as well as chills, had temp of 101 HP 12/[address] Dumont Suprapubic cystostomy PN scanned 12/14 Urinary retention Answered Query 12/17 Dr. Dumont UTI- unable to determine Consult 12/[address] Bradshaw Renal disease and neurogenic bladder both secondary to DM Laboratory: WBC=16.2 Consult 12/[address] Bradshaw Possible UTI with SP tube and foul smelling urine RISK FACTORS: HP Dr. Dumont- ESRD HP Dr. Dumont- BPH HP Dr. Dumont- DM HP Dr. Dumont- Neurogenic bladder TREATMENT: 12/16/2018- Dialysis JUN 15- Levaquin IV JUN 15- Zosyn IV (This form is maintained as a part of the permanent medical record) 2014 [employer]. All Rights Reserved [email or web address] [not provided] MTDD
--- NOTE | 2018-12-19 05:28 | PQF ---
THERESE WARREN VENKAT R MD [id number] ONC-137 [id number] CLINICAL DOCUMENTATION CLARIFICATION FORM: POST DISCHARGE Addendum to original discharge summary date: ____ Late entry note date: __ DATE: 12-19-2018 ATTN:Kyler Stewart Please exercise your independent, professional judgment in responding to the clarification form. Clinical indicators are provided on the bottom of this form for your review Can you please further specify the relationship of Cellulitis to DM? Please check appropriate box(s): [ ] Cellulitis due to Diabetes [ ] Cellulitis not due to Diabetes [ ] Other diagnosis please specify: [y ] Unable to determine For continuity of documentation, please document condition throughout progress notes and discharge summary. Thank You. CLINICAL INDICATORS: HP 12/[address] Dumont chief complaint: right lower leg pain and swelling HP 12/[address] Dumont noticed a lot of swelling in the right lower leg with redness and pain HP 12/[address] Dumont Cellulitis of right lower leg Consult 12/[address] Bradshaw Renal disease and neurogenic bladder both secondary to DM RISKS: HP Dr. Dumont- ESRD HP Dr. Dumont- BPH HP Dr. Dumont- DM HP Dr. Dumont- Neurogenic bladder TREATMENT: 12/16/2018- Dialysis JUN 15- Levaquin IV JUN 15- Zosyn IV (This form is maintained as a part of the permanent medical record) 2014 [employer]. All Rights Reserved [email or web address] [not provided] MTDD
--- NOTE | 2018-12-21 13:12 | EKG ---
Test Reason : SEPSIS Blood Pressure : / mmHG Vent. Rate : 098 BPM Atrial Rate : 098 BPM P-R Int : 226 ms QRS Dur : 098 ms QT Int : 390 ms P-R-T Axes : 024 -14 077 degrees QTc Int : 497 ms Sinus rhythm with 1st degree A-V block Possible Anterior infarct , age undetermined Abnormal ECG Confirmed by STPEHEN HO ([id number]), publishing editor ZENY DIXON ([id number]) on 12/21/2018 1:12:02 PM Referred By: Confirmed By:STEPHEN HO
== END 2018-12-17 12:26 | DRG 698 ==
LOC: ERS 13:19 → ONC 17:48
PROVIDERS: ADMIT Internal Medicine; ATTEND Internal Medicine
PROC: 5A1D70Z Performance of Urinary Filtration, Intermittent, Less than 6 Hours Per Day (ICD-10-PCS; principal; 2018-12-16)
DX: T83.511A Infection and inflammatory reaction due to indwelling urethral catheter, initial encounter (principal); N18.6 End stage renal disease; L03.115 Cellulitis of right lower limb; I12.0 Hypertensive chronic kidney disease with stage 5 chronic kidney disease or end stage renal disease; N39.0 Urinary tract infection, site not specified; E11.22 Type 2 diabetes mellitus with diabetic chronic kidney disease; K21.9 Gastro-esophageal reflux disease without esophagitis; N40.1 Benign prostatic hyperplasia with lower urinary tract symptoms; I48.91 Unspecified atrial fibrillation; E11.51 Type 2 diabetes mellitus with diabetic peripheral angiopathy without gangrene; R33.9 Retention of urine, unspecified; E78.5 Hyperlipidemia, unspecified; E78.00 Pure hypercholesterolemia, unspecified; Y84.6 Urinary catheterization as the cause of abnormal reaction of the patient, or of later complication, without mention of misadventure at the time of the procedure; D63.1 Anemia in chronic kidney disease; N31.2 Flaccid neuropathic bladder, not elsewhere classified; E66.9 Obesity, unspecified; Z91.040 Latex allergy status; Z91.018 Allergy to other foods; Z79.899 Other long term (current) drug therapy; Z86.718 Personal history of other venous thrombosis and embolism; Z86.711 Personal history of pulmonary embolism; Z88.8 Allergy status to other drugs, medicaments and biological substances; Z88.5 Allergy status to narcotic agent; Z79.01 Long term (current) use of anticoagulants; Z79.4 Long term (current) use of insulin; Z99.2 Dependence on renal dialysis; F31.9 Bipolar disorder, unspecified; F20.9 Schizophrenia, unspecified
CPT/HCPCS: 36415; 36416; 71045; 80048; 80053; 81003; 81015; 83605; 85025; 87040; 90935; 93005; 94760; 96365; 96367; G0257; J1815; J1956; J2543; J3370; J3490

== ENCOUNTER 2019-03-23 10:53 | Inpatient (IN) | payer OTHER ==
[2019-03-23] MEDS ORDERED: Sodium Chloride 0.9% 100 ML ONE (11:19)
[2019-03-23] MEDS ORDERED: cefTRIAXone\\ROCEPHIN 2 GM VIAL ONE (11:19)
[2019-03-23 11:32] LABS: #Basophils 0.1 thou/uL (0.0-0.2); #Lymphocytes 0.5 thou/uL (1.20-3.40); #Monocytes 0.4 thou/uL (0.11-0.59); #Neutrophils 11.5 thou/uL (1.40-6.50); %Basophils 0.8 % (0.0-1.0); %Eosinophils 0.1 % (0.0-10.0); %Lymphocytes 4.1 % (21.0-51.0); %Monocytes 2.9 % (0.0-10.0); Hemoglobin 6.7 g/dL (14.0-18.0); Mean Corpuscular HGB CONC 33.9 g/dL (32.0-36.0); Mean Corpuscular Hemoglobin 33.6 pg (27.0-31.0); Mean Corpuscular Volume 99.1 fL (78.0-98.0); Mean Platelet Volume 7.5 fL (7.4-10.4); Platelet Count 129 thou/uL (130-400); RBC Distribution Width 16.3 % (11.5-14.5); White Blood Cell (WBC) Count 12.5 thou/uL (4.8-10.8)
[2019-03-23 11:51] LABS: ALT (SGPT) 54 U/L (8-55); AST (SGOT) 87 U/L (5-34); Alkaline Phosphatase 262 U/L (40-110); Anion Gap 11 mmol/L (10-20); BUN (Urea Nitrogen) 48 mg/dL (8.9-20.6); Bilirubin, Total 1.4 mg/dL (0.2-1.2); Calc. Creatinine Clearance 0 mL/min (70-130); Carbon Dioxide 16 mmol/L (22-29); Estimated GFR-MDRD 13; Globulin 2.8 g/dL (2.4-3.5); Glucose 86 mg/dL (70-105); Potassium 3.2 mmol/L (3.5-5.1); Protein, Total 4.8 g/dL (6.0-8.3)
[2019-03-23 12:01] LABS: Calcium 5.7 mg/dL (7.8-10.44); Chloride 112 mmol/L (98-107); Sodium 136 mmol/L (136-145)
[2019-03-23 12:56] LABS: Actual Bicarbonate (HCO3a) 23.8 mEq/L (22-28); Analyzer IN Cardio ER; Base Excess (BEa) -1.5 mEq/L (-2.0 to +3.0); CO2 Tension 42.5 mmHg (35.0-45.0); Carboxyhemoglobin (COHb) 0.1 gm% (0.0-3.0); O2 Tension (PaO2) 361.2 mmHg (80.0-100.0); Potassium - ABG Lab 4.94 mmol/L (3.70-5.30); pH, Arterial 7.37 (7.35-7.45)
[2019-03-23 13:01] LABS: ALV-art Gradient 298.675 (0-20); Puncture Site RRA
[2019-03-23 13:06] LABS: Bilirubin Moderate (Negative); Blood, Urine Large (Negative); Glucose, Urine (Dipstick) Negative (Negative); Leukocyte Large (Negative); Nitrite Negative (Negative); Protein, Urine (Dipstick) > or equal to 300 mg/dL (Neg-Trace)
--- NOTE | 2019-03-23 13:20 | RAD ---
FRONTAL RADIOGRAPH CHEST: Date: 03/23/19 COMPARISON: 12/13/18. HISTORY: Hypoxia. FINDINGS: There is pulmonary vascular congestion and prominence of the cardiac silhouette. Shallow inspiration limits detailed assessment of the lung bases, as does portable technique and body habitus. No lobar c onsolidation or alveolar edema. No pneumothorax. IMPRESSION: Portable chest radiograph as above. POS: OFF
[2019-03-23 13:31] LABS: Clarity Turbid (Clear)
[2019-03-23 13:34] LABS: Bacteria/HPF 4+ HPF (None Seen); RBC/HPF Greater than 50 HPF (0-3); Squamous Epithelial 0-3 HPF (0-3); WBC/HPF Greater Than 50 HPF (0-3); Yeast-Hyphae 1+ HPF (None Seen)
[2019-03-23] MEDS ORDERED: Dextrose 50% Abboject 50 ML SYRINGE IVP PRN (20:47)
[2019-03-23] MEDS ORDERED: Dextrose 5% in Water 1,000 ML IV PRN (20:47)
[2019-03-23] MEDS ORDERED: Sodium Chloride 0.9% 250 ML IV SCH (21:00)
[2019-03-23] MEDS ORDERED: Potassium Chloride 20 MEQ in Premix Bag 1 BAG IVPB SCH (22:30)
[2019-03-24] MEDS ORDERED: Acetaminophen 325 MG TAB PO PRN (00:25)
[2019-03-24] MEDS ORDERED: Acetaminophen 650 MG Suppository PR PRN (00:30)
[2019-03-24 06:06] LABS: #Lymphocytes 0.6 thou/uL (1.20-3.40); #Monocytes 0.6 thou/uL (0.11-0.59); #Neutrophils 12.3 thou/uL (1.40-6.50); %Eosinophils 0.2 % (0.0-10.0); %Lymphocytes 4.6 % (21.0-51.0); %Monocytes 4.6 % (0.0-10.0); %Neutrophils 90.5 % (42.0-75.0); Hemoglobin 9.9 g/dL (14.0-18.0); Mean Corpuscular HGB CONC 32.8 g/dL (32.0-36.0); Mean Corpuscular Hemoglobin 32.1 pg (27.0-31.0); Mean Corpuscular Volume 97.9 fL (78.0-98.0); Platelet Count 144 thou/uL (130-400); RBC Distribution Width 16.1 % (11.5-14.5); Red Blood Cell (RBC) Count 3.09 mill/uL (4.70-6.10); White Blood Cell (WBC) Count 13.6 thou/uL (4.8-10.8)
[2019-03-24 06:30] LABS: Anion Gap 23 mmol/L (10-20); BUN (Urea Nitrogen) 88 mg/dL (8.9-20.6); Calc. Creatinine Clearance 18 mL/min (70-130); Calcium 8.9 mg/dL (7.8-10.44); Carbon Dioxide 18 mmol/L (22-29); Chloride 98 mmol/L (98-107); Estimated GFR-MDRD 7; Glucose 171 mg/dL (70-105); Potassium 5.5 mmol/L (3.5-5.1); Sodium 133 mmol/L (136-145)
[2019-03-24] MEDS ORDERED: Vancomycin HCl 1.5 GM in Sodium Chloride 0.9% 250 ML 300 ML IVPB SCH (09:00)
[2019-03-24] MEDS ORDERED: Vancomycin HCl 1.25 GM in Sodium Chloride 0.9% 250 ML 250 ML IVPB SCH (09:00)
[2019-03-24] MEDS ORDERED: HOLD VANCOMYCIN FOR LEVEL >20 FS SCH (09:00)
[2019-03-24] MEDS ORDERED: Vancomycin HCl 750 MG in Sodium Chloride 0.9% 250 ML 250 ML IVPB SCH (09:00)
[2019-03-24] MEDS ORDERED: cefTRIAXone\\ROCEPHIN 2 GM in Sodium Chloride 0.9% 100 ML IVPB SCH ×2 (12:00→16:00)
--- NOTE | 2019-03-24 12:41 | CON ---
DATE OF CONSULTATION: 03/24/2019 TIME: 10 a.m. REASON FOR CONSULTATION: Hyperkalemia. The consult was placed by the dialysis nurse. HISTORY OF PRESENT ILLNESS: This is a very pleasant 48-year-old gentleman, who presented to the hospital on March 23 for mental status changes. The patient gets dialysis on Sunday, Sunday, Sunday. The patient was noted to be hyperkalemic. The patient denies any nausea, vomiting, or chest pain. PAST MEDICAL HISTORY: Significant for hypertension, anemia, ESRD, diabetes mellitus, history of Cfnrydx-Cmexq-Ewory disease, history of recurrent cellulitis, pancreatitis, obesity, diabetes mellitus, pulmonary embolism, AV fistula, tunneled dialysis catheter, IVC filter placement. MEDICATIONS: Home medications, list reviewed. Hospital medications, list reviewed. ALLERGIES: REVIEWED. REVIEW OF SYSTEMS: 15-point review of system was performed and negative except for positives noted above. GENERAL: HEAD: NECK: No swelling or lumps. NOSE: No epistaxis or discharge. EYES: No diplopia or pain. RESPIRATORY: CARDIOVASCULAR: GASTROINTESTINAL: /[employer]CR[employer]CKET HOOKER: MUSCULOSKELETAL: No joint pain. NEUROPSYCHIATIC SYSTEMS: No suicidal ideation. No ideation. SKIN: Denies any rash or ulcer. CONSTITUTIONAL: No fever or chills. SOCIAL HISTORY: No alcohol or drug use. FAMILY HISTORY: Negative for ESRD. PHYSICAL EXAMINATION: CONSTITUTIONAL: The patient is awake, alert. VITAL SIGNS: Afebrile. Pulse 75, breathing 16, blood pressure was 103/68. GENERAL APPEARANCE AND MENTAL STATUS: Fair. HEAD/NECK: Normocephalic. Atraumatic. EYES: EOMI. No deformity. EARS: Clear. No ulcers. NOSE: Intact. No lesions. MOUTH: Clear. No discharge. THROAT: Clear. No exudate. LUNGS: Clear. No crackles. CARDIAC: S1, S2. No rub. ABDOMEN: Benign. Bowel sounds positive. GENITALIA/RECTUM: Ram absent. BACK/EXTREMITIES: Edema 0+. Lower extremities have deformity. NEUROLOGICAL: Alert and motor intact. SKIN: LYMPHATICS: LABORATORY DATA: Labs reviewed. ASSESSMENT AND PLAN: 1. Stage 6 chronic kidney disease, plan on urgent dialysis. 2. Hypertension, stable. 3. Anemia, stable. 4. Medication based on GFR appropriate. Job ID: [id number]
[2019-03-24] MEDS ORDERED: Acetaminophen 500 MG TAB PO PRN (19:47)
[2019-03-24] MEDS ORDERED: Bisacodyl 5 MG TAB PO PRN (19:48)
[2019-03-24] MEDS ORDERED: Loperamide HCl 2 MG CAP PO PRN (20:03)
[2019-03-24] MEDS ORDERED: Loratadine 10 MG TAB PO PRN (20:03)
[2019-03-24] MEDS ORDERED: Milk Of Magnesia 30 ML UDCUP PO PRN (20:03)
[2019-03-24] MEDS: Sucralfate 1 GM TAB PO SCH (20:35)
[2019-03-24] MEDS: Tamsulosin HCl 0.4 MG CAP PO SCH (20:35)
[2019-03-24] MEDS: Benzonatate 100 MG CAP PO SCH (20:37)
[2019-03-24] MEDS: Carvedilol 6.25 MG TAB PO SCH (20:37)
[2019-03-24] MEDS: hydrALAZINE 25 MG TAB PO SCH (20:37)
[2019-03-24] MEDS: Atorvastatin Calcium 20 MG TAB PO SCH (20:37)
[2019-03-24] MEDS: Lactinex Tablet PO SCH (20:37)
[2019-03-24] MEDS: Apixaban 2.5 MG TAB PO SCH (20:37)
[2019-03-24] MEDS: Gabapentin 100 MG CAP PO SCH (20:37)
--- NOTE | 2019-03-25 02:09 | CON ---
DATE OF CONSULTATION: 03/24/2019 REASON FOR CONSULT: Bacteremia. HISTORY OF PRESENT ILLNESS: A 48-year-old with a history of type 2 diabetes; BPH with obstruction; end-stage renal disease, on hemodialysis through an AV fistula in the left upper extremity; prior suprapubic catheter placement, who was last in the hospital because of "cellulitis" of the right lower extremity. He is currently a resident in a group home and developed mental status changes and was brought to the emergency room and admitted. He complains of pain in the lower back, which is intense and intermittent pain in the left anterior chest area, which appears to have some pleuritic component. No headaches. No sore throat, odynophagia, or dysphagia. No cough or dyspnea. No abdominal pain. No hip or knee symptoms. Chronic ankle deformity and prior fractures. PAST MEDICAL HISTORY: Type 2 diabetes, end-stage renal disease, BPH with obstruction, suprapubic catheter, hemodialysis through AV fistula, pancreatitis , DVT with pulmonary embolism, hyperlipidemia. SOCIAL HISTORY: Resides in a group home. No alcoholic beverage use history. Never smoker. ALLERGIES: IBUPROFEN, LATEX, METFORMIN, MORPHINE. CURRENT MEDICATIONS: 1. Ceftriaxone. 2. Insulin. 3. Vancomycin. 4. Sliding scale. PHYSICAL EXAMINATION: VITAL SIGNS: T-max 100.8, currently 97.5; blood pressure 119/77; pulse 79; respirations 18; O2 saturation 97. SKIN: There is a chronic bulge consistent with consequence of Charcot arthropathy, probably right foot with a central area of ulceration around the lateral malleolus. This ulcer has a reddish dark scab at the base covering 100% of the ulcer base. The patient has a peripheral IV access and a suprapubic catheter with normal- appearing exit site. No lymphadenopathy. HEENT: Does not establish eye contact. He opens his eyes spontaneously and will answer questions intermittently. Most likely, he has significant visual impairment. Pupils are round and reactive, symmetric. Oral cavity with quite a few teeth in place with desiccation of enamel, some periodontitis. NECK: Without jugular vein distention. LUNGS: Symmetric air entry. No obvious crackles or wheezing, although the patient had a hard time taking deep breaths. HEART: Diminished heart sounds, S1-S2 without obvious murmurs. ABDOMEN: Soft, not distended or tender. No ascites. No bladder distention. MUSCULOSKELETAL: Moderate tenderness in the lumbosacral spine area. Range of motion of hips and knees is intact. 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 He can move extremities, but with marked limitations due to joint deformities. NEUROLOGIC: He is somewhat obtunded. He is easily arousable and will answer questions, but pretty much with monosyllabic replies. He is disoriented. LABORATORY DATA: White cell count was 12.5 up to 13.6, hemoglobin 6.7 and now after transfusion 9.9, platelets 144 with 90% neutrophils. A pH of 7.37, pCO2 of 42, pO2 of 361. Sodium 133, creatinine 8.48. AST was 87, ALT 54, alkaline phosphatase 262. Serum total protein 4.8, albumin 2.0. Urinalysis greater than 50 wbc's. Cultures with nonhemolytic strep, Staph aureus, and suprapubic catheter. He did have 2 sets of blood cultures with MRSA. Nasal swab for influenza was negative. Chest x- ray with pulmonary vascular congestion, prominence of cardiac silhouette. ASSESSMENT: 1. End-stage renal disease associated with diabetes mellitus type 2. 2. Bladder outflow tract obstruction due to benign prostatic hyperplasia, suprapubic catheter placement. 3. End-stage renal disease, on hemodialysis through an arteriovenous fistula. 4. Worsening low back pain. 5. Pleuritic pain in the left anterior chest area. 6. MRSA bacteremia DISCUSSION: Differential diagnosis includes endocarditis versus lumbosacral spine infection or both. The origin of this areas of seeding probably the urinary tract. Continue his vancomycin and sliding scale. Discontinue Rocephin. Check echocardiogram and MRI of lumbosacral spine without contrast. We will need to monitor the chest pain and may need a CT of chest. He is not on anticoagulation at this time, and thromboembolism is a concern. Job ID: [id number] [facility]
--- NOTE | 2019-03-25 02:13 | HP ---
CHIEF COMPLAINT: Change in mental status. HISTORY OF PRESENT ILLNESS: Mr. Cristina is a 48-year-old male with past medical history of end-stage renal disease, on hemodialysis, hypertension, and diabetes, was found to be lethargic at the detention. The patient had some cough and congestion for the last 2 weeks. Chest x-ray was reported as normal. No evidence of pneumonia. He was complaining of pain in the rib areas, both sides, from coughing, but now he became more lethargic and he was also confused and disoriented somewhat and he also has decreased mobility, generalized malaise, and weakness. Has not been eating well for the last 2 days. The patient was sent to the hospital for evaluation and was found to have leukocytosis as well as low-grade fever and severe anemia as well. The patient received a dose of vancomycin and ceftriaxone because there was an evidence of UTI as well, given IV fluids because of hypotension. The patient is admitted as possible sepsis with altered mental status. PAST MEDICAL HISTORY: 1. End-stage renal disease, on hemodialysis. 2. Diabetes mellitus. 3. Hypertension. 4. Benign prostatic hypertrophy. 5. Hyperlipidemia. 6. History of pulmonary embolism. PAST SURGICAL HISTORY: 1. Status post lumbar spine surgery. 2. Status post right wrist surgery. 3. Status post IVC filter placement, status post suprapubic cystostomy. CURRENT MEDICATIONS: The patient is on: 1. Seroquel 50 at bedtime. 2. Tessalon Perles p.r.n. 3. Eliquis 2.5 b.i.d. 4. Gabapentin 100 mg b.i.d. 5. Dulcolax p.r.n. 6. Colace 100 mg b.i.d. 7. Coreg 3.125 b.i.d. 8. Atorvastatin 20 mg daily. 9. Claritin 10 mg. 10. Floranex b.i.d. 11. Hydralazine 50 mg b.i.d. 12. Gabapentin 100 mg t.i.d. 13. Lexapro 20 mg daily. 14. Melatonin p.r.n. 15. Omeprazole 2 tablets daily. 16. MiraLAX 17 g daily. 17. Renvela 2 tablets t.i.d. 18. Carafate 1 g b.i.d. 19. Flomax 0.4 mg q.p.m. ALLERGIES: MULTIPLE INCLUDE LATEX, MORPHINE, NSAIDS, TRAMADOL, METFORMIN, AND AVAPRO. FAMILY HISTORY: Nothing contributory. SOCIAL HISTORY: The patient lives in a detention. No history of smoking. No history of alcohol. REVIEW OF SYSTEMS: CARDIOVASCULAR: No chest pain. No shortness of breath. RESPIRATORY: Fever. No cough. GASTROINTESTINAL: No nausea or vomiting. No abdominal pain. CENTRAL NERVOUS SYSTEM: The patient has altered mental status. PHYSICAL EXAMINATION: GENERAL: The patient is awake, not very alert. VITAL SIGNS: Temperature 100.8, pulse 85, respirations 20, and blood pressure 93/60. HEENT: Head is normocephalic and atraumatic. Pupils are equal and reactive. Nasopharynx is pale and dry. Hard and soft palate, no lesions. SKIN: Turgor decreased. NECK: Supple. No JVD. LUNGS: Bilateral air entry present. No rales, no rhonchi. HEART: S1 and S2, regular. ABDOMEN: Soft, mildly tender. No guarding. No rigidity. Bowel sounds present. RECTAL: Deferred. CENTRAL NERVOUS SYSTEM: The patient is awake, not very alert. Motor system, moves all extremities. Deep tendon reflex 2+ bilaterally. Plantars downgoing. Sensory intact. EXTREMITIES: There are dry wounds present on both feet. LABORATORY DATA: CBC shows WBC of 12.5, hemoglobin 6.7, hematocrit 19, and platelets 129. Metabolic panel: Sodium 136, potassium 3.2, chloride 112, CO2 of 16, BUN 28, creatinine 4.7, glucose 186, and potassium of 5.7. Urinalysis showed WBC greater than 50, RBC greater than 50, and bacteria 4+. Vancomycin level 23. Urine culture showing Staph aureus. Blood culture showing MRSA. Chest x-ray negative. EKG shows normal sinus rhythm, no acute ST-T wave changes seen. ASSESSMENT: 1. MRSA bacteremia. 2. Urinary tract infection, possible. 3. Metabolic encephalopathy. 4. End-stage renal disease. 5. Hypertension. 6. Diabetes mellitus. 7. Dry wounds, both feet. PLAN: 1. Vital signs q.4h. 2. Activity as tolerated. 3. Allergies, multiple. 4. Hep-Lock. 5. Diet, ADA renal. 6. Vancomycin 1 g IV piggyback q.12, Rocephin 1 g IV piggyback daily. 7. Continue detention medications. 8. Hold Lexapro and Seroquel. 9. Echocardiogram. 10. Consult with Dr. Gill. Job ID: [id number]
[2019-03-25 06:15] LABS: Band 29 % (5-11); Hemoglobin 10.6 g/dL (14.0-18.0); Lymphocytes 7 % (21-51); MDiff Complete? YES; Mean Corpuscular HGB CONC 32.7 g/dL (32.0-36.0); Mean Corpuscular Hemoglobin 32.1 pg (27.0-31.0); Mean Platelet Volume 8.8 fL (7.4-10.4); Monocytes 4 % (0-10); Neutrophil 60 % (42-75); Platelet Count 115 thou/uL (130-400); Platelet Morphology Comment Appears Decreased; RBC Distribution Width 16.1 % (11.5-14.5); White Blood Cell (WBC) Count 12.5 thou/uL (4.8-10.8)
[2019-03-25 06:16] LABS: Anion Gap 19 mmol/L (10-20); BUN (Urea Nitrogen) 68 mg/dL (8.9-20.6); Calc. Creatinine Clearance 26 mL/min (70-130); Calcium 8.8 mg/dL (7.8-10.44); Carbon Dioxide 26 mmol/L (22-29); Chloride 94 mmol/L (98-107); Estimated GFR-MDRD 10; Glucose 249 mg/dL (70-105); Potassium 4.5 mmol/L (3.5-5.1); Sodium 134 mmol/L (136-145)
[2019-03-25] MEDS: Calcium Carbonate 500 MG ChewTAB PO SCH (07:41)
[2019-03-25] MEDS: Lactinex Tablet PO SCH ×2 (07:41→20:33)
[2019-03-25] MEDS: Apixaban 2.5 MG TAB PO SCH ×2 (07:41→20:33)
[2019-03-25] MEDS: Gabapentin 100 MG CAP PO SCH ×3 (07:41→20:33)
[2019-03-25] MEDS: Sevelamer Carbonate 800 MG TAB PO SCH ×3 (07:41→17:59)
[2019-03-25] MEDS: Calcium Acetate 667 MG CAP PO SCH ×3 (07:41→17:59)
[2019-03-25] MEDS: hydrALAZINE 25 MG TAB PO SCH ×2 (07:41→20:34)
[2019-03-25] MEDS: Carvedilol 6.25 MG TAB PO SCH ×2 (07:41→20:33)
[2019-03-25] MEDS: Benzonatate 100 MG CAP PO SCH ×3 (07:41→20:33)
[2019-03-25] MEDS: Sucralfate 1 GM TAB PO SCH ×2 (07:42→20:33)
[2019-03-25] MEDS: Polyethylene Glycol 3350 17 GM Packet PO SCH (07:42)
--- NOTE | 2019-03-25 10:54 | PRG ---
DATE OF SERVICE: 03/25/2019 SUBJECTIVE: This is a 48-year-old gentleman, being seen for end-stage renal disease. The patient denied any nausea, vomiting, or chest pain. OBJECTIVE: CONSTITUTIONAL: The patient is awake and alert. VITAL SIGNS: Afebrile. Pulse 75, breathing 16, blood pressure was 121/81. GENERAL APPEARANCE AND MENTAL STATUS: Fair. HEAD/NECK: Normocephalic. Atraumatic. EYES: EOMI. No deformity. EARS: Clear. No ulcers. NOSE: Intact. No lesions. MOUTH: Clear. No discharge. THROAT: Clear. No exudate. LUNGS: Clear. No crackles. CARDIAC: S1, S2. No rub. ABDOMEN: Benign. Bowel sounds positive. GENITALIA/RECTUM: Ram absent. BACK/EXTREMITIES: Edema 0+. NEUROLOGICAL: Alert and motor intact. SKIN: LYMPHATICS: LABORATORY DATA: Reviewed. ASSESSMENT AND PLAN: 1. Stage 6 chronic kidney disease, stable. 2. Hypertension, stable. 3. Anemia, stable. 4. Medication based on GFR, appropriate. Job ID: [id number]
[2019-03-25 14:39] VITALS: BMI 41.2
--- NOTE | 2019-03-25 16:29 | PRG ---
DATE OF SERVICE: 03/25/2019 SUBJECTIVE: Sitting up in bed. He was sleeping when I arrived but was easily arousable. Oriented. Today, he states that his neck is hurting, his lower back, not as much, but probably because he has not moved. No headaches. Abdominal pain. Has not eaten the whole day because he was not given any food to eat, but feels hungry. No dyspnea. OBJECTIVE: VITAL SIGNS: Temperature max 98, BP 120/76, pulse 76, respirations 16, O2 saturation 97. NECK: Some tenderness in the posterior neck area. LUNGS: Symmetric. Clear breath sounds. HEART: S1 and S2, regular rate without murmurs. ABDOMEN: Moderately distended and tympanitic but not tender to palpation. No ascites. No bladder distention. LABORATORY DATA: White cell count 12.5, hemoglobin 10.6, platelets 115,000, 29% bands. Chem-7 is about the same as previously. Blood sugar 247. The patient has not had the MRI done yet. ASSESSMENT AND DISCUSSION: 1. End-stage renal disease. 2. Type 2 diabetes. 3. Bladder outflow tract obstruction due to benign prostatic hypertrophy, suprapubic catheter placement, end-stage. 4. Worsening low back pain. 5. Pleuritic pain in the left anterior chest area, now he has cervical spine pain associated with MRSA bacteremia. Again, differential includes endocarditis versus lumbosacral spine infection. Now he is having C-spine pain which may indicate extension of inflammatory process to the C-spine. Continue with vancomycin, sliding scale. The duration of therapy will be probably at least 4 weeks, if not longer and waiting on the imaging studies, may have to include the C-spine in the imaging as well in view of the newly developed pain. We will see how he is doing tomorrow before make a decision. Job ID: [id number]
[2019-03-25] MEDS: Insulin Regular 300 UNITS/3 ML VIAL SC PRN (18:12)
--- NOTE | 2019-03-25 18:30 | MRI ---
MRI OF LUMBAR SPINE WITHOUT CONTRAST: 03/25/19 INDICATIONS: Back pain. History of infection and lumbar surgery. Contrast was withheld due to renal status. COMPARISON: Comparison made to prior MRI lumbar spine dated 12/23/14. Lumbar vertebrae maintain height. There is a grade II spondylolisthesis at L5-S1 which has progressed when compared to exam of 2015. Mild disc bulge at this level. There is high T2 signal within this disc space and along the end plates at this L5-S1 level. The end plates are preserved without evidence of erosion or destruction. However, follow-up is recommended if there is concern of discitis. No evidence of significant disc bulge or protrusion seen at the levels above L5-S1. There are postope rative changes seen posteriorly with laminectomy change at L4-5 and at L5-S1 and there are pedicle sc rews in place at L5-S1. There is bilateral foraminal stenosis at L5-S1 and there is foraminal encroachment at L4-5. IMPRESSION: Postoperative change at L4-5 and L5-S1. Grade II spondylolisthesis at L5-S1 as described above. Ther e is high T2 signal within the disc space at L5-S1 along the inferior and superior end plates. No ubaldo tructive or erosive change; however, early discitis cannot be excluded given the high T2 signal prese nt. Short term follow-up is recommended if there is concern of discitis. POS: OFF
[2019-03-25] MEDS: Atorvastatin Calcium 20 MG TAB PO SCH (20:33)
[2019-03-25] MEDS: Tamsulosin HCl 0.4 MG CAP PO SCH (20:33)
[2019-03-25] MEDS: Acetaminophen/Codeine 30-300mg Tablet PO PRN (20:34)
--- NOTE | 2019-03-26 02:30 | CON ---
DATE OF CONSULTATION: REASON FOR CONSULTATION: Bacteremia, end-stage renal disease, aortic stenosis. PRIMARY FORMAL [employer] RENTAL CLERK: Mary Ann Gordillo MD HISTORY OF PRESENT ILLNESS: Mr. Cristina is a very pleasant 48-year-old gentleman with end-stage renal disease. He was admitted to the hospital with confusion and mental status changes. He has been found to be bacteremic. He also was hyperkalemic. He has undergone urgent dialysis and the hyperkalemia was corrected, but as mentioned, he does have bacteremia. PAST MEDICAL HISTORY: The patient was seen by Dr. Gordillo in 2017, noted to have chronic kidney disease, peripheral vascular disease, diabetes, and some abnormal cardiac enzymes due to demand ischemia. The patient otherwise has been doing well from a cardiac standpoint. MEDICATIONS: At home, he was on: 1. Coreg 3.125 mg twice a day. 2. Tamsulosin. 3. Gabapentin. 4. Atorvastatin. 5. Loratadine. 6. Apixaban 2.5 mg twice a day. ALLERGIES: MUSHROOM, LATEX, RUBBER, MORPHINE. REVIEW OF SYSTEMS: Not obtainable now. He is drowsy. PHYSICAL EXAMINATION: GENERAL: Somewhat ill-appearing 48-year-old gentleman, looks older than his chronologic age. VITAL SIGNS: Blood pressure 120/80, pulse 80 and it is regular. NECK: Veins are normal. LUNGS: Clear. CARDIAC: Normal S1, normal S2. I do not hear murmur, rub, or gallop. ABDOMEN: Soft, nontender. EXTREMITIES: Warm, dry. No clubbing or cyanosis. There is no edema. PERTINENT LABORATORY DATA: Creatinine is 6.1. His potassium is back down to 4.5. The patient has blood cultures positive for methicillin-resistant Staph aureus. EKG shows sinus rhythm and a prolonged QT interval. Echocardiogram reveals ejection fraction 50% to 55%, moderate to severe aortic stenosis with a peak gradient of 40 mmHg, mean gradient 24 mmHg and the left ventricular function is low range of normal. ASSESSMENT: 1. Bacteremia. 2. End-stage renal disease. 3. Abnormal aortic valve. 4. Back and spine pain. PLAN: 1. He has undergone MRI of the spine. 2. He is on antibiotics. 3. Consideration for transesophageal echo. Dr. Gordillo will follow tomorrow. Job ID: [id number]
[2019-03-26] MEDS: Insulin Regular 300 UNITS/3 ML VIAL SC PRN ×2 (06:34→12:16)
[2019-03-26] MEDS: hydrALAZINE 25 MG TAB PO SCH ×2 (08:57→20:50)
[2019-03-26] MEDS: Polyethylene Glycol 3350 17 GM Packet PO SCH (08:57)
[2019-03-26] MEDS: Carvedilol 6.25 MG TAB PO SCH ×2 (08:58→20:49)
[2019-03-26] MEDS: Gabapentin 100 MG CAP PO SCH ×3 (08:58→20:49)
[2019-03-26] MEDS: Apixaban 2.5 MG TAB PO SCH ×2 (08:58→20:49)
[2019-03-26] MEDS: Calcium Acetate 667 MG CAP PO SCH ×3 (08:58→16:27)
[2019-03-26] MEDS: Sevelamer Carbonate 800 MG TAB PO SCH ×3 (08:58→16:27)
[2019-03-26] MEDS: Lactinex Tablet PO SCH ×2 (08:58→20:49)
[2019-03-26] MEDS: Benzonatate 100 MG CAP PO SCH ×3 (08:59→20:49)
[2019-03-26] MEDS: Calcium Carbonate 500 MG ChewTAB PO SCH (08:59)
[2019-03-26] MEDS: Sucralfate 1 GM TAB PO SCH ×2 (08:59→20:50)
[2019-03-26] MEDS: Acetaminophen/Codeine 30-300mg Tablet PO PRN (10:35)
--- NOTE | 2019-03-26 12:35 | PDOC.CPN ---
- Subjective Date: 03/26/19 Time: 08:30 Interval history: The pt seen and examined. No new overnight events. Pt. is confused and speaks very little. - Objective Allergies/Adverse Reactions: Allergies Allergy/AdvReac Type Severity Reaction Status Date / Time eddi mushroom Allergy Severe Anaphylaxis Verified 11/27/18 09:31 Latex, Natural Rubber Allergy Intermediate Rash Verified 11/27/18 09:31 morphine Allergy Intermediate Rash Verified 11/27/18 09:31 NSAIDS (Non-Steroidal Allergy Verified 11/27/18 09:31 Anti-Inflamma tramadol [From Ultram] Allergy Verified 12/14/18 12:56 metformin AdvReac Unknown Verified 11/27/18 09:31 ibuprofen AdvReac Verified 11/27/18 09:31 Visit Medications: Current Medications Acetaminophen (Tylenol) 650 mg [place] Q4H PRN PRN Reason: Headache/Fever or Pain 1-3 Acetaminophen (Tylenol) 500 mg PO Q6H PRN PRN Reason: Headache/Fever/MILD Pain 1-3 Acetaminophen/Codeine Phosphate (Tylenol #3) 1 tab PO Q6H PRN PRN Reason: Moderate Pain (4-6) Last Admin: 03/26/19 10:35 Dose: 1 tab Acidophilus (Floranex) 2 tab PO BID [facility] Last Admin: 03/26/19 08:58 Dose: 2 tab Apixaban (Eliquis) 2.5 mg PO BID [facility] Last Admin: 03/26/19 08:58 Dose: 2.5 mg Atorvastatin Calcium (Lipitor) 20 mg PO QPM [facility] Last Admin: 03/25/19 20:33 Dose: 20 mg Benzonatate (Tessalon) 100 mg PO TID [facility] Last Admin: 03/26/19 08:59 Dose: 100 mg Bisacodyl (Dulcolax) 10 mg PO HSPRN PRN PRN Reason: Constipation Calcium Acetate (Phoslo) 1,334 mg PO TID[facility] Last Admin: 03/26/19 08:58 Dose: 1,334 mg Calcium Carbonate (Tums) 1,000 mg PO DAILY [facility] Last Admin: 03/26/19 08:59 Dose: 1,000 mg Carvedilol (Coreg) 6.25 mg PO BID [facility] Last Admin: 03/26/19 08:58 Dose: 6.25 mg Dextrose/Water (Dextrose 50%) 25 gm IVP PRN PRN PRN Reason: HYPOGLYCEMIA PROTOCOL Gabapentin (Neurontin) 100 mg PO TID [facility] Last Admin: 03/26/19 08:58 Dose: 100 mg Glucagon (Glucagon) 1 mg IM PRN PRN PRN Reason: HYPOGLYCEMIA PROTOCOL Hydralazine HCl (Apresoline) 50 mg PO BID [facility] Last Admin: 03/26/19 08:57 Dose: Not Given Dextrose/Water (D5w) 1,000 mls @ 0 mls/hr IV INF PRN PRN Reason: HYPOGLYCEMIA PROTOCOL Vancomycin HCl 1.5 gm/ Sodium (Chloride) 300 mls @ 200 mls/hr IVPB [facility] Vancomycin HCl 1.25 gm/ Sodium (Chloride) 250 mls @ 166.667 mls/hr IVPB [facility] Vancomycin HCl 1 gm/ Device 200 mls @ 200 mls/hr IVPB [facility] Vancomycin HCl 750 mg/ Sodium (Chloride) 250 mls @ 250 mls/hr IVPB [facility] Insulin Human Regular (Humulin R) 0 units SC .MILD SLIDING PRN; Protocol PRN Reason: MILD SLIDING SCALE Last Admin: 03/26/19 06:34 Dose: 4 unit Loperamide HCl (Imodium) 2 mg PO ASDIR PRN PRN Reason: Diarrhea/Loose Stools Loratadine (Claritin) 10 mg PO DAILYPRN PRN PRN Reason: Allergies Magnesium Hydroxide (Milk Of Magnesium) 30 ml PO DAILYPRN PRN PRN Reason: Constipation Miscellaneous Medication (Pharmacy To Dose) 1 each IVPB PRN PRN PRN Reason: Pharmacy to dose Hold Vancomycin For (Level >20) 0 each FS .AT DIALYSIS [facility] Pantoprazole Sodium (Protonix) 40 mg PO DAILY [facility] Last Admin: 03/26/19 08:58 Dose: 40 mg Polyethylene Glycol (Miralax) 17 gm PO DAILY [facility] Last Admin: 03/26/19 08:57 Dose: 17 gm Sevelamer Carbonate (Renvela) 1,600 mg PO TID[facility] Last Admin: 03/26/19 08:58 Dose: 1,600 mg Sodium Chloride (Flush - Normal Saline) 10 ml IVF PRN PRN PRN Reason: Saline Flush Last Admin: 03/26/19 08:59 Dose: 10 ml Sucralfate (Carafate) 1 gm PO BID [facility] Last Admin: 03/26/19 08:59 Dose: 1 gm Tamsulosin HCl (Flomax) 0.4 mg PO QPM [facility] Last Admin: 03/25/19 20:33 Dose: 0.4 mg Vital Signs & Weight: Vital Signs Temp Pulse Resp BP Pulse Ox 03/26/19 09:00 94 L 03/26/19 07:54 98.0 F 76 20 109/73 94 L Admit Weight 263 lb 8 oz Weight 263 lb 8 oz - Physical Exam HEENT: mucus membranes moist Neck: supple neck Cardiac: regular rate and rhythm, S1/S2, S4 Lungs: decreased breath sounds - Labs Result Diagrams: 03/25/19 05:34 03/25/19 05:34 - Assessment/Plan Assessment/Plan: 1. Staph Bacteremia - On ABX IV by PCP; plan for JEROMY for possible staph infection to his Valves; 2. HTN - stable 3. HLD - Lipitor 20mg qd 4. Type 2 DM - managed by PCP 5. ESRD with HD - 6. BPH - 7. Hx fo PE - on Eliquis 2.5mg 8. back pain 9. mod-severe - MAR reviewed * Echo on 03/23/2019 with EF 50-55%, mod-severe dilated LA, mild MR and TR, mod- severe with peak gradient 40mmHg, and mod elevated PAP * Stress test in 2016 with no ischemia with EF 61% <Addendum> Plan for JEROMY on 03/27/[address] Gordillo Pt. seen and eval.by me.I agree with the A/P by the ROUNDHOUSE WORKER.Chest clear. RRR
--- NOTE | 2019-03-26 14:27 | PRG ---
DATE OF SERVICE: 03/26/2019 SUBJECT: A 48-year-old gentleman being seen for end-stage kidney disease. The patient denied any nausea, vomiting, or chest pain. OBJECTIVE: GENERAL: The patient is awake and alert. VITAL SIGNS: Afebrile, pulse 75, breathing 16, and blood pressure 130/70. GENERAL APPEARANCE AND MENTAL STATUS: Fair. HEAD/NECK: Normocephalic. Atraumatic. EYES: EOMI. No deformity. EARS: Clear. No ulcers. NOSE: Intact. No lesions. MOUTH: Clear. No discharge. THROAT: Clear. No exudate. LUNGS: Clear. No crackles. CARDIAC: S1, S2. No rub. ABDOMEN: Benign. Bowel sounds positive. GENITALIA/RECTUM: Ram absent. BACK/EXTREMITIES: Edema 0+. NEUROLOGICAL: Alert and motor intact. SKIN: LYMPHATICS: LABORATORY DATA: Reviewed. ASSESSMENT: 1. Stage 6 chronic kidney disease, plan hemodialysis. 2. Hypertension, stable. 3. Anemia, stable. 4. Medication based on GFR appropriate. Job ID: [id number]
--- NOTE | 2019-03-26 17:28 | PRG ---
DATE OF SERVICE: 03/26/2019 SUBJECTIVE: The patient is still with lumbosacral spine pain and some cervical spine pain as well. No dyspnea. No abdominal pain or diarrhea. He is voiding with an indwelling Ram catheter. OBJECTIVE: VITAL SIGNS: Temperature max 98.4, blood pressure 109/73, pulse 76, and respirations 94. I's and O's are positive yesterday and today they are markedly negative 4200, probably from diuresis. Appears in no distress or less distress than previously. LUNGS: With basilar crackles. HEART: S1 and S2. Regular rate. ABDOMEN: Soft, not distended. Able to move extremities well. LABORATORY DATA: White cell count is 12.5, hemoglobin 10.6. Chemistry has not changed. Microbiology has not changed. MRI lumbar spine with possible L4-L5 early diskitis. Actually this is localized to the L5-S1 space. Echocardiogram, EF 50%, mild mitral regurg, [id number] aortic stenosis. ASSESSMENT: End-stage renal disease, type 2 diabetes, bladder outflow tract obstruction due to benign prostatic hyperplasia with suprapubic catheter placement, worsening low back pain with the findings noted in the MRI, pleuritic pain in left anterior chest area, and methicillin-resistant Staphylococcus aureus bacteremia. DISCUSSION: If the C-spine pain continues, then we will have to MRI his C-spine as well. He will need protracted treatment with vancomycin sliding scale. The end date of therapy will be May 05. Weekly CBC, CRP, comprehensive metabolic panel, and vancomycin trough levels. The treatment can be given through dialysis, so he is not going to require placement of an access. Job ID: [id number]
[2019-03-26] MEDS: Vancomycin HCl 1 GM in Premix Bag 1 BAG IVPB SCH (17:39)
[2019-03-26] MEDS: Atorvastatin Calcium 20 MG TAB PO SCH (20:49)
[2019-03-26] MEDS: Tamsulosin HCl 0.4 MG CAP PO SCH (20:50)
[2019-03-27] MEDS: Insulin Regular 300 UNITS/3 ML VIAL SC PRN (05:49)
[2019-03-27] MEDS ORDERED: PROPOFOL 20 ML ONE (09:17)
--- NOTE | 2019-03-27 12:06 | PRG ---
DATE OF SERVICE: 03/27/2019 SUBJECTIVE: A 48-year-old gentleman, being seen for end-stage renal disease. The patient denies any complaints like nausea, vomiting, or chest pain. OBJECTIVE: See above. Awake, alert, in no acute distress. CONSTITUTIONAL: The patient is resting. VITAL SIGNS: Afebrile, pulse 77, breathing 16, blood pressure . GENERAL APPEARANCE AND MENTAL STATUS: Fair. HEAD/NECK: Normocephalic. Atraumatic. EYES: EOMI. No deformity. EARS: Clear. No ulcers. NOSE: Intact. No lesions. MOUTH: Clear. No discharge. THROAT: Clear. No exudate. LUNGS: Clear. No crackles. CARDIAC: S1, S2. No rub. ABDOMEN: Benign. Bowel sounds positive. GENITALIA/RECTUM: Ram absent. BACK/EXTREMITIES: Edema 0+. NEUROLOGICAL: Alert and motor intact. SKIN: LYMPHATICS: LABORATORY DATA: Hemoglobin 10.6. ASSESSMENT AND PLAN: 1. Stage 6 chronic kidney disease, plan on dialysis tomorrow. 2. Hypertension, stable. 3. Anemia, stable. 4. Medication based on GFR appropriate. Job ID: [id number]
[2019-03-27] MEDS: Sevelamer Carbonate 800 MG TAB PO SCH ×2 (12:23→16:11)
[2019-03-27] MEDS: Calcium Acetate 667 MG CAP PO SCH ×2 (12:23→16:11)
[2019-03-27] MEDS: Apixaban 2.5 MG TAB PO SCH ×2 (12:23→21:09)
[2019-03-27] MEDS: Carvedilol 6.25 MG TAB PO SCH ×2 (12:24→21:09)
[2019-03-27] MEDS: Gabapentin 100 MG CAP PO SCH ×3 (12:24→21:09)
[2019-03-27] MEDS: Calcium Carbonate 500 MG ChewTAB PO SCH (12:24)
[2019-03-27] MEDS: hydrALAZINE 25 MG TAB PO SCH ×2 (12:24→21:10)
[2019-03-27] MEDS: Benzonatate 100 MG CAP PO SCH ×3 (12:24→21:08)
[2019-03-27] MEDS: Lactinex Tablet PO SCH ×2 (12:24→21:07)
[2019-03-27] MEDS: Polyethylene Glycol 3350 17 GM Packet PO SCH (12:25)
[2019-03-27] MEDS: Sucralfate 1 GM TAB PO SCH ×2 (12:25→21:08)
[2019-03-27] MEDS: Tamsulosin HCl 0.4 MG CAP PO SCH (21:08)
[2019-03-27] MEDS: Atorvastatin Calcium 20 MG TAB PO SCH (21:08)
[2019-03-28] MEDS: Insulin Regular 300 UNITS/3 ML VIAL SC PRN ×3 (05:39→21:27)
[2019-03-28] MEDS: Gabapentin 100 MG CAP PO SCH ×3 (07:59→20:15)
[2019-03-28] MEDS: Calcium Acetate 667 MG CAP PO SCH ×3 (07:59→15:30)
[2019-03-28] MEDS: Benzonatate 100 MG CAP PO SCH ×3 (07:59→20:14)
[2019-03-28] MEDS: Sevelamer Carbonate 800 MG TAB PO SCH ×3 (07:59→17:04)
[2019-03-28 08:43] LABS: Vancomycin, Random 13.8 ug/mL (See Comment)
[2019-03-28 09:29] LABS: Anion Gap 12 mmol/L (10-20); BUN (Urea Nitrogen) 69 mg/dL (8.9-20.6); Calc. Creatinine Clearance 32 mL/min (70-130); Calcium 8.5 mg/dL (7.8-10.44); Carbon Dioxide 29 mmol/L (22-29); Chloride 97 mmol/L (98-107); Estimated GFR-MDRD 13; Glucose 208 mg/dL (70-105); Potassium 3.4 mmol/L (3.5-5.1); Sodium 135 mmol/L (136-145)
[2019-03-28 09:59] LABS: Band 15 % (5-11); Eosinophils 1 % (0-10); Hemoglobin 10.7 g/dL (14.0-18.0); Hypochromia SLIGHT = 6-15 cells (100X) (0-5/hpf); Lymphocytes 12 % (21-51); MDiff Complete? YES; Mean Corpuscular HGB CONC 33.1 g/dL (32.0-36.0); Mean Corpuscular Volume 96.5 fL (78.0-98.0); Mean Platelet Volume 6.6 fL (7.4-10.4); Monocytes 4 % (0-10); Neutrophil 68 % (42-75); Platelet Count 53 thou/uL (130-400); Platelet Morphology Comment Appears Decreased; Polychromasia SLIGHT = 2-3 cells (100X) (0-2/hpf); RBC Distribution Width 16.5 % (11.5-14.5); Red Blood Cell (RBC) Count 3.35 mill/uL (4.70-6.10); White Blood Cell (WBC) Count 12.9 thou/uL (4.8-10.8)
--- NOTE | 2019-03-28 10:06 | PRG ---
DATE OF SERVICE: 03/28/2019 SUBJECTIVE: A 48-year-old gentleman, being seen for end-stage renal disease very somnolent The patient denies any complaint, just remains hypotensive. OBJECTIVE: See above. Awake, alert, in no acute distress. The patient is resting. GENERAL APPEARANCE AND MENTAL STATUS: Fair. VITAL SIGNS: Afebrile, pulse 65, breathing 16, and blood pressure 92/60. HEAD/NECK: Normocephalic. Atraumatic. EYES: EOMI. No deformity. EARS: Clear. No ulcers. NOSE: Intact. No lesions. MOUTH: Clear. No discharge. THROAT: Clear. No exudate. LUNGS: Clear. No crackles. CARDIAC: S1, S2. No rub. ABDOMEN: Benign. Bowel sounds positive. GENITALIA/RECTUM: Ram absent. BACK/EXTREMITIES: Edema NEUROLOGICAL: Alert and motor intact. SKIN: LYMPHATICS: LABORATORY DATA: Hemoglobin is pending. ASSESSMENT AND PLAN: 1. Stage 6 chronic kidney disease. Continue hemodialysis. 2. Hypertension. The patient's blood pressure is low. If the patient's blood pressure does not improve, we will consider pressors and transfer to ICU. Discussed with Dr Dumont. 3. Anemia, stable. I will recheck hemoglobin today. 4. Hypokalemia. We will change to 4K bath. Job ID: [id number] [facility]
[2019-03-28] MEDS: Vancomycin HCl 1 GM in Premix Bag 1 BAG IVPB SCH (10:37)
[2019-03-28] MEDS: Carvedilol 6.25 MG TAB PO SCH (11:48)
[2019-03-28] MEDS: hydrALAZINE 25 MG TAB PO SCH (11:49)
[2019-03-28] MEDS: Calcium Carbonate 500 MG ChewTAB PO SCH (12:13)
[2019-03-28] MEDS: Apixaban 2.5 MG TAB PO SCH ×2 (12:13→20:14)
[2019-03-28] MEDS: Lactinex Tablet PO SCH ×2 (12:14→20:15)
[2019-03-28] MEDS: Sucralfate 1 GM TAB PO SCH ×2 (12:14→20:15)
[2019-03-28] MEDS: Polyethylene Glycol 3350 17 GM Packet PO SCH (12:14)
[2019-03-28] MEDS ORDERED: Norepinephrine 8 MG/250 ML IVPB SCH (12:45)
[2019-03-28] MEDS ORDERED: Sodium Chloride 0.9% (PF) 10 ML VIAL FS PRN (12:45)
[2019-03-28] MEDS ORDERED: Sodium Chloride 0.9% 500 ML IVPB SCH (12:45)
--- NOTE | 2019-03-28 12:46 | PQF ---
CLINICAL DOCUMENTATION IMPROVEMENT CLARIFICATION FORM: ICD-10 Updated PLEASE DO AN ADDENDUM TO THE PROGRESS NOTE WITH ANY DOCUMENTATION UPDATES OR ADDITIONS AND CARRY THROUGH TO DC SUMMARY. THANK YOU. DATE: 03/28/2019; 03/31/2019 ATTN: Dr. Dumont/ Dr. Pan Please exercise your independent, professional judgment in responding to the clarification form. Clinical indicators are provided on the bottom of this form for your review Please check appropriate box(s) to clarify if the following diagnosis has been ruled in or ruled out: SEPSIS [ x ] Ruled in diagnosis [ x ] Continue to treat [ ] Resolved [ ] Ruled out diagnosis [ ] Cannot rule out diagnosis [ ] Other diagnosis [ ] Unable to determine In addition, please specify: Present on Admission (POA): [ x ] Yes [ ] No [ ] Unable to determine For continuity of documentation, please document condition throughout progress notes and discharge summary. Thank You. CLINICAL INDICATORS - SIGNS / SYMPTOMS / LABS / RESULTS AND LOCATION IN MR ER Record: VS: BP 87/57 Pulse 91, Resp: 26, Temp: 101.5 O2 sat: 89 on Non Rebreather DX: Sepsis. Additional: Altered Mental Status, UTI H&P 03/23: The patient is admitted as possible sepsis with altered mental status. WBC 12.5 Urine culture showing Staph aureus. Blood culture showing MRSA Assessment: MRSA bacteremia UTI, possible Metabolic encephalopathy 03/24 (Jairo) Differential diagnosis includes endocarditis vs lumbosacral spine infection or both. The origin of this areas of seeding probably the urinary tract. 03/27 () JEROMY (+) Vegetation on AV RISKS: H&P 03/23: PMH ESRD on Hemodialysis; DM, HTN. TREATMENT: ID Consult 03/24 MAR: 03/24 Vancomycin HCl 1 gm IV Order JEROMY 03/26. Thank you, Ana Cristina (This form is maintained as a part of the permanent medical record) 2014 [employer]. All Rights Reserved Ana Cristina Goff RN, BSN [email or web address] Office: [phone] [facility]
--- NOTE | 2019-03-28 12:54 | PQF ---
CLINICAL DOCUMENTATION IMPROVEMENT CLARIFICATION FORM: ICD-10 Updated PLEASE DO AN ADDENDUM TO THE PROGRESS NOTE WITH ANY DOCUMENTATION UPDATES OR ADDITIONS AND CARRY THROUGH TO DC SUMMARY. THANK YOU. DATE: 03/28/2019; 03/31/2019 ATTN: Dr. Dumont/ Dr. Pan Please exercise your independent, professional judgment in responding to the clarification form. Clinical indicators are provided on the bottom of this form for your review Please check appropriate box(s) to clarify if the following diagnosis has been ruled in or ruled out: UTI [ x ] Ruled in diagnosis [ x ] Continue to treat [ ] Resolved [ ] Ruled out diagnosis [ ] Cannot rule out diagnosis [ ] Other diagnosis [ ] Unable to determine In addition, please specify: Present on Admission (POA): [ x ] Yes [ ] No [ ] Unable to determine For continuity of documentation, please document condition throughout progress notes and discharge summary. Thank You. CLINICAL INDICATORS - SIGNS / SYMPTOMS / LABS / RESULTS AND LOCATION IN MR ER Record: VS: BP 87/57 Pulse 91, Resp: 26, Temp: 101.5 O2 sat: 89 on Non Rebreather DX: Sepsis Additional: Altered Mental Status, UTI H&P 03/23: The patient is admitted as possible sepsis with altered mental status. WBC 12.5 Urine culture showing Staph aureus. Blood culture showing MRSA. Assessment: MRSA bacteremia UTI, possible Metabolic encephalopathy 03/24 (Jairo) Differential diagnosis includes endocarditis vs lumbosacral spine infection or both. The origin of this areas of seeding probably the urinary tract. 03/27 () JEROMY (+) Vegetation on AV RISKS: H&P 03/23: PMH ESRD on Hemodialysis; DM, HTN. TREATMENT: ID Consult 03/24 MAR: 03/24 Vancomycin HCl 1 gm IV Order JEROMY 03/26. Thank you, Ana Cristina (This form is maintained as a part of the permanent medical record) 2014 [employer]. All Rights Reserved Ana Cristina Goff, RN, YAKOV [email or web address] Office: [phone] [facility]
--- NOTE | 2019-03-28 15:44 | ECHO ---
DATE OF PROCEDURE: 03/27/19 INDICATION FOR PROCEDURE: This is a 48-year-old patient with MRSA sepsis. Patient had an echocardiogram performed which had a s uspicious abnormality in the aortic valve. He was advised to undergo a transesophageal echocardiogram to rule out evidence of endocarditis. He was taken to the recovery area where he underwent short acting propofol and the transesophageal pr obe was easily passed down the distal esophagus. IMPRESSION: 1. Evidence of mobile vegetation of 1.3 x 0.8 cm on the aortic valve. This is mobile. He does hoffman ve some calcifications also. There is a large vegetation on the valve. 2. Mild aortic valve regurgitation. 3. Mild tricuspid valve regurgitation. 4. Mild mitral valve regurgitation. 5. Normal left ventricular systolic function. 6. There was no evidence of vegetation noted on the tricuspid valve or the mitral valve. The pat ient tolerated the procedure well without difficulties or complications. FINAL IMPRESSION: Positive vegetation which is mobile on the aortic valve.
[2019-03-28] MEDS: Atorvastatin Calcium 20 MG TAB PO SCH (20:14)
[2019-03-28] MEDS: Tamsulosin HCl 0.4 MG CAP PO SCH (20:15)
[2019-03-28] MEDS: Pantoprazole 40 MG VIAL IVP SCH (21:19)
--- NOTE | 2019-03-29 01:55 | CON ---
DATE OF CONSULTATION: HISTORY OF PRESENT ILLNESS: Mr. Cristina is a 48-year-old male who is felt to have endocarditis. He is transferred to the ICU for low blood pressure. He is able to give a history. He is mildly encephalopathic. He is tentatively on the schedule for an MRI, but given his hemodynamic instability, I recommended cancelling the MRI of his brain. PAST MEDICAL HISTORY: Remarkable for; 1. End-stage renal disease, on dialysis. 2. Diabetes. 3. BPH. He has a suprapubic catheter in place, still drains a little dark urine. 4. History of Sunday, Sunday, Sunday dialysis. 5. History of vascular access procedures. 6. History of pancreatitis. 7. History of pulmonary embolism. 8. Lipid disorder. SOCIAL HISTORY: Nonsmoker, nondrinker. Lives in a custodial. ALLERGIES: REPORTED TO IBUPROFEN, LASIX, METFORMIN, AND MORPHINE. MEDICATIONS: Have been reviewed. FAMILY HISTORY: Negative for lung disease in early age. REVIEW OF SYSTEMS: Otherwise, negative. PHYSICAL EXAMINATION: VITAL SIGNS: I saw him after fluid bolus. His blood pressure is up to 120 systolic, heart rate is in 80s, and respiratory rate is in the teens. GENERAL: Still mildly encephalopathic. EYES: Sclerae anicteric. NECK: Supple without lymphadenopathy. LUNGS: Remarkable for equal breath sounds. HEART: Regular rhythm. There is grade 1/6 to 2/6 systolic murmur. ABDOMEN: Soft and nontender. EXTREMITIES: Without clubbing, cyanosis, or edema. LABORATORY DATA: Transesophageal echocardiogram yesterday shows an aortic valve vegetation. IMPRESSION: 1. Endocarditis. 2. Encephalopathy secondary to his critical illness. 3. Hemodynamic instability. 4. End-stage renal disease, on dialysis. 5. We will continue to follow the other physicians. At this point in time, he seems to be stable. His blood pressure improved with some fluids. He is a do not resuscitate patient. Job ID: [id number] 70 minute consult with 50% of time on unit coordinating care [facility]my
[2019-03-29] MEDS: Insulin Regular 300 UNITS/3 ML VIAL SC PRN ×2 (06:35→14:20)
--- NOTE | 2019-03-29 08:17 | PRG ---
DATE OF SERVICE: 03/29/2019 SUBJECTIVE: This 48-year-old gentleman, being seen for end-stage renal disease. The patient was hypotensive yesterday and was not arousable. OBJECTIVE: See above. The patient is resting. GENERAL APPEARANCE AND MENTAL STATUS: Fair. VITAL SIGNS: Afebrile, pulse 85, breathing 16, and blood pressure 103/67. HEAD/NECK: Normocephalic. Atraumatic. EYES: EOMI. No deformity. EARS: Clear. No ulcers. NOSE: Intact. No lesions. MOUTH: Clear. No discharge. THROAT: Clear. No exudate. LUNGS: Clear. No crackles. CARDIAC: S1, S2. No rub. ABDOMEN: Benign. Bowel sounds positive. GENITALIA/RECTUM: Ram absent. BACK/EXTREMITIES: Lower extremity shows bony chronic venous insufficiency. NEUROLOGICAL: Alert and motor intact. SKIN: LYMPHATICS: LABORATORY DATA: Show hemoglobin 10.7. ASSESSMENT AND PLAN: 1. Stage 6 chronic kidney disease. No indication for dialysis. 2. Hypertension, stable. 3. Anemia, stable. Sepsis management per primary team. Overall prognosis is poor. Job ID: [id number]
[2019-03-29] MEDS: Calcium Acetate 667 MG CAP PO SCH ×3 (10:03→16:23)
[2019-03-29] MEDS: Sevelamer Carbonate 800 MG TAB PO SCH ×3 (10:03→16:23)
[2019-03-29] MEDS: Apixaban 2.5 MG TAB PO SCH (10:04)
[2019-03-29] MEDS: Calcium Carbonate 500 MG ChewTAB PO SCH (10:04)
[2019-03-29] MEDS: Benzonatate 100 MG CAP PO SCH ×3 (10:04→20:49)
[2019-03-29] MEDS: Lactinex Tablet PO SCH ×2 (10:04→20:48)
[2019-03-29] MEDS: Gabapentin 100 MG CAP PO SCH ×3 (10:04→20:48)
[2019-03-29] MEDS: Polyethylene Glycol 3350 17 GM Packet PO SCH (10:05)
[2019-03-29] MEDS: Sucralfate 1 GM TAB PO SCH ×2 (10:05→20:49)
--- NOTE | 2019-03-29 12:01 | PRG ---
DATE OF SERVICE: 03/29/2019 SUBJECTIVE: Mr. Cristina is still encephalopathic. OBJECTIVE: VITAL SIGNS: Heart rate in the 70s, blood pressure 103/63, and respiratory rate is in the teens to low 20s. LUNGS: Clear. HEART: Regular rate and rhythm. Grade 2/6 systolic murmur. ABDOMEN: Soft. EXTREMITIES: Unchanged. Left foot was bandaged. He has stasis changes and hyperpigmentation in both lower extremities. LABORATORY DATA: No lab today. IMPRESSION: 1. Endocarditis involving his aortic valve. 2. Encephalopathy related to the endocarditis. 3. do not feel comfortable taking him to MRI at this point. 4. Given his endocarditis, he probably should not have anticoagulants administered, so I will stop these. Reviewed other medications. He will remain on his antimicrobial therapy. Dr. Gill is following along. I am not optimistic that he will survive this. Job ID: [id number]
--- NOTE | 2019-03-29 16:00 | PDOC.HOSPP ---
- Subjective Encounter Date: 03/29/19 Encounter Time: 13:00 Subjective: awakens to touch but falls asleep soon is seen snoring - Objective Vital Signs & Weight: Vital Signs (12 hours) Temp Pulse Ox 03/29/19 12:00 98.9 F 03/29/19 08:00 98.5 F 98 03/29/19 04:00 97.8 F Weight Admit Weight 263 lb 8 oz Weight 240 lb 4.862 oz Most Recent Monitor Data Heart Rate from ECG 116 NIBP 111/77 NIBP BP-Mean 88 Respiration from ECG 18 SpO2 99 I&O: 03/28/19 03/29/19 03/30/19 06:59 06:59 06:59 Intake Total 300 130 100 Output Total 100 412 0 Balance 200 -282 100 Result Diagrams: 03/28/19 09:04 03/28/19 08:46 Additional Labs: Accuchecks 03/29/19 03/29/19 03/28/19 12:19 06:36 21:30 POC Glucose 192 H 278 H 200 H 03/28/19 18:18 POC Glucose 218 H Hospitalist ROS - Medication Medications: Active Medications Generic Name Dose Route Start Last Admin Trade Name Freq PRN Reason Stop Dose Admin Acetaminophen 500 mg 03/24/19 19:47 03/27/19 23:56 Tylenol PO 500 mg Q6H PRN Administration Headache/Fever/MILD Pain 1-3 Acetaminophen/Codeine Phosphate 1 tab 03/24/19 19:47 03/26/19 10:35 Tylenol #3 PO 1 tab Q6H PRN Administration Moderate Pain (4-6) Acidophilus 2 tab 03/24/19 21:00 03/29/19 10:04 Floranex PO Not Given BID JOE Atorvastatin Calcium 20 mg 03/24/19 21:00 03/28/19 20:14 Lipitor PO Not Given QPM JOE Benzonatate 100 mg 03/24/19 21:00 03/29/19 10:04 Tessalon PO Not Given TID JOE Calcium Acetate 1,334 mg 03/25/19 08:00 03/29/19 10:05 Phoslo PO Not Given TID-WM JOE Calcium Carbonate 1,000 mg 03/25/19 09:00 03/29/19 10:04 Tums PO Not Given DAILY JOE Gabapentin 100 mg 03/24/19 21:00 03/29/19 10:04 Neurontin PO Not Given TID JOE Vancomycin HCl 1 gm/ Device 200 mls @ 200 mls/hr 03/24/19 09:00 03/28/19 10: 37 IVPB 04/30/19 23:59 200 mls WILLCALL JOE Administration Ceftaroline Fosamil 200 mg/ 100 mls @ 100 mls/hr 03/28/19 21:00 03/29/19 10: 09 Sodium Chloride IVPB 100 mls Q12HR JOE Administration Insulin Human Regular 0 units 03/23/19 20:47 03/29/19 14:20 Humulin R SC 2 unit .MILD SLIDING PRN Administration MILD SLIDING SCALE Protocol Pantoprazole Sodium 40 mg 03/25/19 09:00 03/29/19 10:05 Protonix PO Not Given DAILY JOE Pantoprazole Sodium 40 mg 03/28/19 21:00 03/28/19 21:19 Protonix IVP 40 mg 2100 JOE Administration Polyethylene Glycol 17 gm 03/25/19 09:00 03/29/19 10:05 Miralax PO Not Given DAILY JOE Sevelamer Carbonate 1,600 mg 03/25/19 08:00 03/29/19 10:05 Renvela PO Not Given TID-WM JOE Sodium Chloride 10 ml 03/24/19 00:34 03/26/19 08:59 Flush - Normal Saline IVF 10 ml PRN PRN Administration Saline Flush Sucralfate 1 gm 03/24/19 21:00 03/29/19 10:05 Carafate PO Not Given BID JOE Tamsulosin HCl 0.4 mg 03/24/19 21:00 03/28/19 20:15 Flomax PO Not Given QPM JOE - Exam General Appearance: ill appearing Eye: PERRL, anicteric sclera ENT: no oropharyngeal lesions, dry oral mucosa Neck: supple, no JVD Heart: RRR, no murmur Respiratory: no wheezes, no rales Gastrointestinal: soft, normal bowel sounds, distended Extremities: no cyanosis, 1+ LE edema Neurological: cranial nerve grossly intact, no focal deficits Hosp A/P (1) Endocarditis Code(s): I38 - ENDOCARDITIS, VALVE UNSPECIFIED Status: Acute Qualifiers: Endocarditis type: infective Infective endocarditis organism: bacterial Chronicity: acute Qualified Code(s): I33.0 - Acute and subacute infective endocarditis (2) Bacteremia Code(s): R78.81 - BACTEREMIA Status: Acute Plan: mrsa (3) Aortic stenosis, severe Code(s): I35.0 - NONRHEUMATIC AORTIC (VALVE) STENOSIS Status: Chronic (4) ESRD (end stage renal disease) on dialysis Code(s): N18.6 - END STAGE RENAL DISEASE; Z99.2 - DEPENDENCE ON RENAL DIALYSIS Status: Chronic (5) History of pulmonary embolus (PE) Code(s): Z86.711 - PERSONAL HISTORY OF PULMONARY EMBOLISM Status: Chronic (6) Metabolic encephalopathy Code(s): G93.41 - METABOLIC ENCEPHALOPATHY Status: Acute (7) Hyperlipidemia Code(s): E78.5 - HYPERLIPIDEMIA, UNSPECIFIED Status: Chronic (8) Hypertriglyceridemia Code(s): E78.1 - PURE HYPERGLYCERIDEMIA Status: Chronic (9) Normocytic anemia Code(s): D64.9 - ANEMIA, UNSPECIFIED Status: Chronic (10) Schizophrenia Code(s): F20.9 - SCHIZOPHRENIA, UNSPECIFIED Status: Suspected (11) Type 2 diabetes mellitus, uncontrolled Code(s): E11.65 - TYPE 2 DIABETES MELLITUS WITH HYPERGLYCEMIA Status: Chronic (12) Urinary bladder neurogenic dysfunction Code(s): N31.9 - NEUROMUSCULAR DYSFUNCTION OF BLADDER, UNSPECIFIED Status: Chronic (13) Obesity (BMI 30-39.9) Code(s): E66.9 - OBESITY, UNSPECIFIED Status: Chronic - Plan is on teflaro and vanc with HD till may 05 continue lipitor, flomax is npo, speech to clear him for oral solid diet if appropriate oob to chair and mobilize bed to chair or wheel chair as tolerated prognosis guarded HD per nephr advice will likely need cpap when asleep? has chronic right foot deformity JEROMY revealed aortic valve vegetation, ef of 50%, severe .
[2019-03-29] MEDS: Tamsulosin HCl 0.4 MG CAP PO SCH (20:48)
[2019-03-29] MEDS: Atorvastatin Calcium 20 MG TAB PO SCH (20:48)
[2019-03-29] MEDS: Pantoprazole 40 MG VIAL IVP SCH (20:49)
--- NOTE | 2019-03-30 01:16 | PRG ---
DATE OF [id number]/30/2019 SUBJECTIVE: A 48-year-old gentleman being seen for end-stage renal disease. OBJECTIVE: Patient is resting. VITAL SIGNS: Afebrile, pulse 110, breathing 16, and blood pressure 98/68. GENERAL APPEARANCE AND MENTAL STATUS: Fair. HEAD/NECK: Normocephalic. Atraumatic. EYES: EOMI. No deformity. EARS: Clear. No ulcers. NOSE: Intact. No lesions. MOUTH: Clear. No discharge. THROAT: Clear. No exudate. LUNGS: Clear. No crackles. CARDIAC: S1, S2. No rub. ABDOMEN: Benign. Bowel sounds positive. GENITALIA/RECTUM: Ram absent. BACK/EXTREMITIES: Edema 0+. NEUROLOGICAL: Patient is resting. LABORATORY DATA: Hemoglobin 10.5. ASSESSMENT AND PLAN: 1. Stage 6 chronic kidney disease. Plan dialysis Sunday, Sunday, Sunday. 2. Hypertension. Stable. 3. Anemia. Stable. 4. Medication based on GFR if appropriate. Overall prognosis is poor. Job ID: [id number] [facility]
[2019-03-30] MEDS: Insulin Regular 300 UNITS/3 ML VIAL SC PRN ×4 (05:39→20:41)
[2019-03-30] MEDS: Polyethylene Glycol 3350 17 GM Packet PO SCH (08:07)
[2019-03-30] MEDS: Lactinex Tablet PO SCH ×2 (08:07→20:36)
[2019-03-30] MEDS: Calcium Acetate 667 MG CAP PO SCH ×3 (08:08→16:13)
[2019-03-30] MEDS: Sevelamer Carbonate 800 MG TAB PO SCH ×3 (08:08→16:13)
[2019-03-30] MEDS: Gabapentin 100 MG CAP PO SCH ×3 (08:08→20:38)
[2019-03-30] MEDS: Benzonatate 100 MG CAP PO SCH ×3 (08:08→20:36)
[2019-03-30] MEDS: Calcium Carbonate 500 MG ChewTAB PO SCH (08:08)
[2019-03-30] MEDS: Sucralfate 1 GM TAB PO SCH ×2 (08:09→20:38)
--- NOTE | 2019-03-30 13:24 | PDOC.HOSPP ---
- Subjective Encounter Date: 03/30/19 Encounter Time: 08:00 Subjective: awake, responds well to verbal questions is trying to eat breakfast no sob - Objective Vital Signs & Weight: Vital Signs (12 hours) Temp Pulse Resp BP Pulse Ox 03/30/19 11:40 98.1 F 119 H 16 98/65 100 03/30/19 08:05 97.9 F 118 H 16 110/71 100 03/30/19 04:00 98.2 F 119 H 18 98/59 L 96 Weight Admit Weight 263 lb 8 oz Weight 240 lb 4.862 oz Most Recent Monitor Data Heart Rate from ECG 116 NIBP 111/77 NIBP BP-Mean 88 Respiration from ECG 18 SpO2 99 I&O: 03/29/19 03/30/19 03/31/19 06:59 06:59 06:59 Intake Total 130 1400 Output Total 412 50 Balance -282 1350 Result Diagrams: 03/28/19 09:04 03/28/19 08:46 Additional Labs: Accuchecks 03/30/19 03/30/19 03/29/19 11:47 04:35 20:02 POC Glucose 265 H 241 H 261 H 03/29/19 16:16 POC Glucose 213 H Hospitalist ROS - Medication Medications: Active Medications Generic Name Dose Route Start Last Admin Trade Name Freq PRN Reason Stop Dose Admin Acetaminophen 500 mg 03/24/19 19:47 03/27/19 23:56 Tylenol PO 500 mg Q6H PRN Administration Headache/Fever/MILD Pain 1-3 Acetaminophen/Codeine Phosphate 1 tab 03/24/19 19:47 03/26/19 10:35 Tylenol #3 PO 1 tab Q6H PRN Administration Moderate Pain (4-6) Acidophilus 2 tab 03/24/19 21:00 03/30/19 08:07 Floranex PO 2 tab BID JOE Administration Atorvastatin Calcium 20 mg 03/24/19 21:00 03/29/19 20:48 Lipitor PO 20 mg QPM JOE Administration Benzonatate 100 mg 03/24/19 21:00 03/30/19 08:08 Tessalon PO 100 mg TID JOE Administration Calcium Acetate 1,334 mg 03/25/19 08:00 03/30/19 12:46 Phoslo PO 1,334 mg TID-WM JOE Administration Calcium Carbonate 1,000 mg 03/25/19 09:00 12/22/19 08:08 Tums PO 1,000 mg DAILY JOE Administration Gabapentin 100 mg 03/24/19 21:00 03/30/19 08:08 Neurontin PO 100 mg TID JOE Administration Vancomycin HCl 1 gm/ Device 200 mls @ 200 mls/hr 03/24/19 09:00 03/28/19 10: 37 IVPB 04/30/19 23:59 200 mls WILLCALL JOE Administration Ceftaroline Fosamil 200 mg/ 100 mls @ 100 mls/hr 03/28/19 21:00 03/30/19 08: 08 Sodium Chloride IVPB 100 mls Q12HR JOE Administration Insulin Human Regular 0 units 03/23/19 20:47 03/30/19 12:46 Humulin R SC 4 unit .MILD SLIDING PRN Administration MILD SLIDING SCALE Protocol Pantoprazole Sodium 40 mg 03/25/19 09:00 03/30/19 08:08 Protonix PO 40 mg DAILY JOE Administration Pantoprazole Sodium 40 mg 03/28/19 21:00 03/29/19 20:49 Protonix IVP 40 mg 2100 JOE Administration Polyethylene Glycol 17 gm 03/25/19 09:00 03/30/19 08:07 Miralax PO 17 gm DAILY JOE Administration Sevelamer Carbonate 1,600 mg 03/25/19 08:00 03/30/19 12:46 Renvela PO 1,600 mg TID-WM JOE Administration Sodium Chloride 10 ml 03/24/19 00:34 03/26/19 08:59 Flush - Normal Saline IVF 10 ml PRN PRN Administration Saline Flush Sucralfate 1 gm 03/24/19 21:00 03/30/19 08:09 Carafate PO 1 gm BID JOE Administration Tamsulosin HCl 0.4 mg 03/24/19 21:00 03/29/19 20:48 Flomax PO 0.4 mg QPM JOE Administration - Exam General Appearance: awake alert Eye: PERRL, anicteric sclera ENT: no oropharyngeal lesions, moist mucosa Neck: supple, no JVD Heart: RRR, no murmur Respiratory: no wheezes, no rales Gastrointestinal: soft, non-tender, non-distended, normal bowel sounds Extremities: no cyanosis, 1+ LE edema Neurological: cranial nerve grossly intact, no focal deficits Hosp A/P (1) Endocarditis Code(s): I38 - ENDOCARDITIS, VALVE UNSPECIFIED Status: Acute Qualifiers: Endocarditis type: infective Infective endocarditis organism: bacterial Chronicity: acute Qualified Code(s): I33.0 - Acute and subacute infective endocarditis (2) Bacteremia Code(s): R78.81 - BACTEREMIA Status: Acute (3) Aortic stenosis, severe Code(s): I35.0 - NONRHEUMATIC AORTIC (VALVE) STENOSIS Status: Chronic (4) ESRD (end stage renal disease) on dialysis Code(s): N18.6 - END STAGE RENAL DISEASE; Z99.2 - DEPENDENCE ON RENAL DIALYSIS Status: Chronic (5) History of pulmonary embolus (PE) Code(s): Z86.711 - PERSONAL HISTORY OF PULMONARY EMBOLISM Status: Chronic (6) Metabolic encephalopathy Code(s): G93.41 - METABOLIC ENCEPHALOPATHY Status: Resolved (7) Hyperlipidemia Code(s): E78.5 - HYPERLIPIDEMIA, UNSPECIFIED Status: Chronic (8) Hypertriglyceridemia Code(s): E78.1 - PURE HYPERGLYCERIDEMIA Status: Chronic (9) Normocytic anemia Code(s): D64.9 - ANEMIA, UNSPECIFIED Status: Chronic (10) Schizophrenia Code(s): F20.9 - SCHIZOPHRENIA, UNSPECIFIED Status: Chronic Qualifiers: Schizophrenia type: unspecified Qualified Code(s): F20.9 - Schizophrenia, unspecified (11) Type 2 diabetes mellitus, uncontrolled Code(s): E11.65 - TYPE 2 DIABETES MELLITUS WITH HYPERGLYCEMIA Status: Chronic (12) Urinary bladder neurogenic dysfunction Code(s): N31.9 - NEUROMUSCULAR DYSFUNCTION OF BLADDER, UNSPECIFIED Status: Chronic (13) Obesity (BMI 30-39.9) Code(s): E66.9 - OBESITY, UNSPECIFIED Status: Chronic - Plan is on teflaro and vanc with HD till may 05 continue lipitor, flomax on oral solid diet oob to chair, to transfer and mobilize bed to chair or wheel chair as tolerated prognosis guarded HD per nephr advice will likely need cpap when asleep? has chronic right foot deformity, left foot drop, ulcers x2 over ankle and lat foot JEROMY revealed aortic valve vegetation, ef of 50%, severe .
--- NOTE | 2019-03-30 19:09 | PRG ---
DATE OF SERVICE: 03/30/2019 SUBJECTIVE: Mr. Cristina had some mental status changes, but has improved, seems to be more related to toxic metabolic encephalopathy. He now is oriented. He is having quite a bit of low back pain and wanted to be set up in bed. His visual impairment persists and sometimes, he has some hallucinations associated with it. No sore throat. No dyspnea or chest pain. The neck pain has improved. No abdominal pain. OBJECTIVE: VITAL SIGNS: His T-max 98.8, blood pressure 105/71, pulse 118, respiratory rate 16, O2 saturation 92 to 100. SKIN: With similar findings in the ankles with a Charcot deformity and there is ulcerated area in the left lateral malleolus with hyperkeratosis in the central ulcerated region with a fresh reddish tissue at the base, a little bit of undermining. HEENT: Ocular movements are conjugate. Mild conjunctival hyperemia. Pupils are equal. Oral cavity is okay. NECK: Supple. LUNGS: Symmetric air entry. HEART: S1 and S2, regular rate without any obvious murmurs. Tachycardic. ABDOMEN: Soft, mildly distended. Not tender. LABORATORY DATA: Sodium 135, creatinine 4.9. His white cell count 12.9, hemoglobin 10.7, platelets 53,000, 15% bands. Blood cultures have not been repeated yet, need to be repeated to verify resolution of bacteremia. The patient had a JEROMY which showed a vegetation, 1.3 x 0.8 cm on the aortic valve. ASSESSMENT AND DISCUSSION: End-stage renal disease, type 2 diabetes. Bladder outflow tract obstruction due to BPH with suprapubic catheter, chronically. Worsening low back pain with MRI evidence of diskitis and osteomyelitis, and evidence of MRSA bacteremia due to endocarditis, this involved the aortic valve. The patient will be continued on vancomycin sliding scale and ceftaroline for the duration of therapy. He will need access for the ceftaroline, which is given every 12 hours and cannot be given at dialysis. We will request placement of Acosta catheter if the blood cultures remain negative. Job ID: [id number]
[2019-03-30] MEDS: Tamsulosin HCl 0.4 MG CAP PO SCH (20:38)
[2019-03-30] MEDS: Atorvastatin Calcium 20 MG TAB PO SCH (20:38)
[2019-03-30] MEDS: Pantoprazole 40 MG VIAL IVP SCH (20:39)
[2019-03-31] MEDS: Calcium Acetate 667 MG CAP PO SCH ×3 (07:57→16:51)
[2019-03-31] MEDS: Sevelamer Carbonate 800 MG TAB PO SCH ×3 (07:57→16:51)
[2019-03-31] MEDS: Gabapentin 100 MG CAP PO SCH ×2 (08:01→14:17)
[2019-03-31] MEDS: Benzonatate 100 MG CAP PO SCH ×2 (08:02→14:17)
[2019-03-31] MEDS: Lactinex Tablet PO SCH (08:04)
[2019-03-31] MEDS: Sucralfate 1 GM TAB PO SCH (08:06)
[2019-03-31 08:10] LABS: Vancomycin, Random 12.3 ug/mL (See Comment)
[2019-03-31 08:13] LABS: Albumin 2.3 g/dL (3.5-5.0); Anion Gap 21 mmol/L (10-20); BUN (Urea Nitrogen) 116 mg/dL (8.9-20.6); BUN/Creatinine Ratio 15.28; Calc. Creatinine Clearance 19 mL/min (70-130); Calcium 8.2 mg/dL (7.8-10.44); Carbon Dioxide 20 mmol/L (22-29); Chloride 94 mmol/L (98-107); Estimated GFR-MDRD 8; Glucose 207 mg/dL (70-105); Phosphorus 5.2 mg/dL (2.3-4.7); Potassium 5.1 mmol/L (3.5-5.1); Sodium 130 mmol/L (136-145)
[2019-03-31 08:14] LABS: ALT (SGPT) 50 U/L (8-55); AST (SGOT) 37 U/L (5-34); Albumin 2.3 g/dL (3.5-5.0); Alkaline Phosphatase 578 U/L (40-110); Bilirubin, Total 6.2 mg/dL (0.2-1.2); Protein, Total 6.3 g/dL (6.0-8.3)
[2019-03-31 08:29] LABS: Hemoglobin 9.9 g/dL (14.0-18.0); Mean Corpuscular HGB CONC 32.5 g/dL (32.0-36.0); Mean Corpuscular Hemoglobin 31.2 pg (27.0-31.0); Mean Platelet Volume 10.6 fL (7.4-10.4); Platelet Count 85 thou/uL (130-400); RBC Distribution Width 16.7 % (11.5-14.5); Red Blood Cell (RBC) Count 3.17 mill/uL (4.70-6.10); White Blood Cell (WBC) Count 15.2 thou/uL (4.8-10.8)
[2019-03-31 08:30] LABS: Band 4 % (5-11); Lymphocytes 6 % (21-51); MDiff Complete? YES; Monocytes 4 % (0-10); Neutrophil 86 % (42-75); Platelet Morphology Comment Appears Decreased; Poikilocytosis SLIGHT = 6-15 cells (100X) (0-5/hpf); Target Cells SLIGHT = 2-5 cells (100X) (0-1/hpf)
--- NOTE | 2019-03-31 11:37 | PDOC.HOSPP ---
- Subjective Encounter Date: 03/31/19 Encounter Time: 10:45 Subjective: is getting HD now, sleeping, easily arousable, is seen snoring - Objective Vital Signs & Weight: Vital Signs (12 hours) Temp Pulse Resp BP Pulse Ox 03/31/19 04:27 98.0 F 119 H 18 116/80 100 03/31/19 00:00 110 H 19 97 Weight Admit Weight 263 lb 8 oz Weight 240 lb 4.862 oz Most Recent Monitor Data Heart Rate from ECG 116 NIBP 111/77 NIBP BP-Mean 88 Respiration from ECG 18 SpO2 99 I&O: 03/30/19 03/31/19 04/01/19 06:59 06:59 06:59 Intake Total 1400 1710 Output Total 50 150 Balance 1350 1560 Result Diagrams: 03/31/19 07:40 03/31/19 07:40 Additional Labs: Accuchecks 03/31/19 03/30/19 03/30/19 04:36 19:57 16:07 POC Glucose 192 H 241 H 263 H 03/30/19 11:47 POC Glucose 265 H Hospitalist ROS - Medication Medications: Active Medications Generic Name Dose Route Start Last Admin Trade Name Freq PRN Reason Stop Dose Admin Acetaminophen 500 mg 03/24/19 19:47 03/27/19 23:56 Tylenol PO 500 mg Q6H PRN Administration Headache/Fever/MILD Pain 1-3 Acetaminophen/Codeine Phosphate 1 tab 03/24/19 19:47 03/26/19 10:35 Tylenol #3 PO 1 tab Q6H PRN Administration Moderate Pain (4-6) Acidophilus 2 tab 03/24/19 21:00 03/31/19 08:04 Floranex PO Not Given BID JOE Atorvastatin Calcium 20 mg 03/24/19 21:00 03/30/19 20:38 Lipitor PO 20 mg QPM JOE Administration Benzonatate 100 mg 03/24/19 21:00 03/31/19 08:02 Tessalon PO Not Given TID JOE Calcium Acetate 1,334 mg 03/25/19 08:00 03/31/19 07:57 Phoslo PO Not Given TID-WM JOE Calcium Carbonate 1,000 mg 03/25/19 09:00 03/30/19 08:08 Tums PO 1,000 mg DAILY JOE Administration Gabapentin 100 mg 03/24/19 21:00 12/23/19 08:01 Neurontin PO Not Given TID JOE Vancomycin HCl 1 gm/ Device 200 mls @ 200 mls/hr 03/24/19 09:00 03/28/19 10: 37 IVPB 04/30/19 23:59 200 mls WILLCALL JOE Administration Ceftaroline Fosamil 200 mg/ 100 mls @ 100 mls/hr 03/28/19 21:00 03/30/19 20: 39 Sodium Chloride IVPB 100 mls Q12HR JOE Administration Insulin Human Regular 0 units 03/23/19 20:47 03/30/19 20:41 Humulin R SC 3 unit .MILD SLIDING PRN Administration MILD SLIDING SCALE Protocol Pantoprazole Sodium 40 mg 03/25/19 09:00 03/30/19 08:08 Protonix PO 40 mg DAILY JOE Administration Polyethylene Glycol 17 gm 03/25/19 09:00 03/30/19 08:07 Miralax PO 17 gm DAILY JOE Administration Sevelamer Carbonate 1,600 mg 03/25/19 08:00 03/31/19 07:57 Renvela PO Not Given TID-WM JOE Sodium Chloride 10 ml 03/24/19 00:34 03/26/19 08:59 Flush - Normal Saline IVF 10 ml PRN PRN Administration Saline Flush Sucralfate 1 gm 03/24/19 21:00 03/31/19 08:06 Carafate PO Not Given BID JOE Tamsulosin HCl 0.4 mg 03/24/19 21:00 03/30/19 20:38 Flomax PO 0.4 mg QPM JOE Administration - Exam Eye: PERRL ENT: no oropharyngeal lesions, dry oral mucosa Neck: supple, no JVD Heart: RRR, no murmur Respiratory: no wheezes, no rales Gastrointestinal: soft, non-tender, non-distended, normal bowel sounds Extremities: no cyanosis, 1+ LE edema Neurological: cranial nerve grossly intact, no focal deficits Hosp A/P (1) Endocarditis Code(s): I38 - ENDOCARDITIS, VALVE UNSPECIFIED Status: Acute Qualifiers: Endocarditis type: infective Infective endocarditis organism: bacterial Chronicity: acute Qualified Code(s): I33.0 - Acute and subacute infective endocarditis (2) Bacteremia Code(s): R78.81 - BACTEREMIA Status: Acute (3) Aortic stenosis, severe Code(s): I35.0 - NONRHEUMATIC AORTIC (VALVE) STENOSIS Status: Chronic (4) ESRD (end stage renal disease) on dialysis Code(s): N18.6 - END STAGE RENAL DISEASE; Z99.2 - DEPENDENCE ON RENAL DIALYSIS Status: Chronic (5) History of pulmonary embolus (PE) Code(s): Z86.711 - PERSONAL HISTORY OF PULMONARY EMBOLISM Status: Chronic (6) Metabolic encephalopathy Code(s): G93.41 - METABOLIC ENCEPHALOPATHY Status: Resolved (7) Hyperlipidemia Code(s): E78.5 - HYPERLIPIDEMIA, UNSPECIFIED Status: Chronic (8) Hypertriglyceridemia Code(s): E78.1 - PURE HYPERGLYCERIDEMIA Status: Chronic (9) Normocytic anemia Code(s): D64.9 - ANEMIA, UNSPECIFIED Status: Chronic (10) Schizophrenia Code(s): F20.9 - SCHIZOPHRENIA, UNSPECIFIED Status: Chronic Qualifiers: Schizophrenia type: unspecified Qualified Code(s): F20.9 - Schizophrenia, unspecified (11) Type 2 diabetes mellitus, uncontrolled Code(s): E11.65 - TYPE 2 DIABETES MELLITUS WITH HYPERGLYCEMIA Status: Chronic (12) Urinary bladder neurogenic dysfunction Code(s): N31.9 - NEUROMUSCULAR DYSFUNCTION OF BLADDER, UNSPECIFIED Status: Chronic (13) Obesity (BMI 30-39.9) Code(s): E66.9 - OBESITY, UNSPECIFIED Status: Chronic - Plan T.Bili and alk phos are elevated, bun/cr is up is on teflaro and vanc with HD till may 05 continue flomax on oral solid diet oob to chair, to transfer and mobilize from bed to chair or wheel chair as tolerated prognosis guarded HD per nephr advice will likely need cpap when asleep? has chronic right foot deformity, left foot drop, ulcers x2 over ankle and lat foot JEROMY revealed aortic valve vegetation, ef of 50%, severe .
--- NOTE | 2019-03-31 12:02 | PRG ---
DATE OF SERVICE: 03/31/2019 SUBJECTIVE: The patient was seen and examined at the bedside, and then during dialysis the patient remains confused. OBJECTIVE: GENERAL: This is an obese male, confused. VITAL SIGNS: Temperature 98.0, pulse 119, respiratory rate 18, blood pressure Musculoskeletal : No tenderness, No edema HEENT: Atraumatic normocephalic Neck: Supple Cardiovascular: S1S2 heard, Rate and rhythm regular Respiratory: Clear to auscultation Gastrointestinal: Abdomen is soft Dermatologic : No skin rash NEUROLOGICAL: Confused. PSYCHIATRIC: Not assessed. LABORATORY DATA: Hemoglobin is 9.9. Potassium 5.1, BUN is 116, creatinine is 7.5. ASSESSMENT AND PLAN: 1. End-stage renal disease. Plan to have dialysis. The patient was seen during dialysis. Remains confused and tachycardic. Plan to continue dialysis given his azotemia and see how the mentation goes. 2. Altered mentation. We will have dialysis to correct the uremia. 3. Hyponatremia with fluid overload. We will continue fluid removal if tolerated. The patient remains hypotensive and tachycardic. 4. Sinus tachycardia. Follow with primary team. 5. Uremia. 6. Anemia. 7. Edema. 8. History of hypertension. 9. Altered mentation. 10. Prognosis guarded. We will continue dialysis as tolerated for clearance. Might need dialysis tomorrow too. Job ID: [id number] [facility]
[2019-03-31 12:38] LABS: Actual Bicarbonate (HCO3a) 24.3 mEq/L (22-28); Base Excess (BEa) 1.1 mEq/L (-2.0 to +3.0); CO2 Tension 33.9 mmHg (35.0-45.0); Calcium, Ionized 1.13 mmol/L (1.12-1.30); Carboxyhemoglobin (COHb) 1.7 gm% (0.0-3.0); Hemoglobin (Hb) 10.9 g/dL (14.0-18.0); O2 Tension (PaO2) 93.4 mmHg (80.0-100.0); Potassium - ABG Lab 3.73 mmol/L (3.70-5.30); pH, Arterial 7.47 (7.35-7.45)
[2019-03-31 12:39] LABS: Puncture Site LRA
[2019-03-31 12:40] LABS: ALV-art Gradient 78.125 (0-20)
[2019-03-31 13:11] VITALS: TEMP 97.6
[2019-03-31] MEDS: Calcium Carbonate 500 MG ChewTAB PO SCH (14:35)
[2019-03-31] MEDS: Polyethylene Glycol 3350 17 GM Packet PO SCH (14:37)
[2019-03-31] MEDS ORDERED: Carvedilol 6.25 MG TAB PO SCH (17:00)
[2019-03-31] MEDS: Insulin Regular 300 UNITS/3 ML VIAL SC PRN (17:07)
[2019-03-31 17:15] VITALS: BP 108/69
--- NOTE | 2019-04-02 05:16 | PQF ---
THERESE WARREN VINAYA KUMAR MD [id number]- [id number] CLINICAL DOCUMENTATION CLARIFICATION FORM: POST DISCHARGE Addendum to original discharge summary date: ____ Late entry note date: __ DATE: 04/02/2019 ATTN: DAVID PEREZ MD Please exercise your independent, professional judgment in responding to the clarification form. Clinical indicators are provided on the bottom of this form for your review Please check appropriate box(es): [ ] Sepsis due to Dialysis catheter complication [ ] Sepsis due to suprapubic catheter complication [ ] Sepsis due to Endocarditis [x ] Other diagnosis ___sepsis with bacteremia and endocarditis [ ] Unable to determine In addition, please specify: Present on Admission (POA): [ x] Yes [ ] No [ ] Unable to determine For continuity of documentation, please document condition throughout progress notes and discharge summary. Thank You. CLINICAL INDICATORS - SIGNS / SYMPTOMS / LABS Catheter related infection(Ram/Dialysis/PICC/Central line) - Documented in Emergency report pg#2 Patient admitted with Sepsis - Documented in H&P on 05/24 by Julia Chávez MRSA bacteremia - Documented in H&P on 05/24 by Julia Chávez Endocarditis bacterial organism acute - Documented in Hospital PNs 03/31 by Viviane Hernandez MD Bladder outflow obstruction due to BPH with suprapubic catheter - Documented in PNs on 03/30 by Bebo Bueno MRSA bacteremia due to endocarditis this involved in Aortic Valve - Documented in PNs on 03/30 by Bebo Bueno He has suprapubic catheter in place still drains a little dark urine - Documented ion Consult report on 03/29 by Marie hines RISK FACTORS UTI Hypotension Metabolic Encephalopathy - Documented in H&P on 05/24 by Julia Chávez ERSD TREATMENTS: Patient received dose of Vancomycin and Ceftriaxone - Documented in H&P on 05/24 by Julia Chávez Vancomycin 1g IVPB, Rocephin IVPB - Documented in H&P on 05/24 by Julia Chávez JEROMY, Echocardiogram SAP Medical Consultant Crystal Reports Winform Viewer (This form is maintained as a part of the permanent medical record) 2014 [employer]. All Rights Reserved [email or web address] [not provided] MTDD
--- NOTE | 2019-04-02 10:42 | DIS ---
DATE OF ADMISSION: 03/23/2019 DATE OF DISCHARGE: 03/31/2019 DATE OF : 03/31/2019 at 6:53 p.m. PRIMARY CAUSE OF : MRSA bacteremia from 9 days, endocarditis of aortic valve 9 days. SECONDARY CAUSE OF : Moderate aortic stenosis, history of pulmonary embolism, end-stage renal disease, on hemodialysis, schizoaffective disorder, obesity. BRIEF COURSE DURING HOSPITALIZATION: The patient initially got hospitalized on the 24 of March for increasing lethargic and change in mental status at the detention. He was also not eating well for nearly 2 days prior to arrival. On arrival, the patient was found to be septic with leukocytosis, severe anemia, and suspicion for bacteremia. His blood cultures came back positive for MRSA bacteremia. His transthoracic echo showed EF of 50% to 55% with moderate to severe aortic stenosis. A transesophageal echo was done on the , which showed large vegetation over the aortic valve, and this was a 1.3 x 0.8 cm mobile vegetation on the aortic valve. He had had consultation with Dr. Gill for Infectious Disease, Dr. Bill for Nephrology, and Dr. Gordillo for Cardiology. The patient was on ceftaroline and vancomycin sliding scale with dialysis for the MRSA bacteremia. He was initially admitted to IMCU and was later downgraded to medical floor. The patient was slowly responding to the antibiotics, but then suddenly went into cardiorespiratory arrest after going to bathroom on the evening. The patient was do not attempt to resuscitate and he breathed his last around 6:53 p.m. on the 31 of March. Family was notified and body will be released to home per hospital protocol. His overall prognosis was guarded from the beginning given MRSA bacteremia, endocarditis, multiple medical issues, and schizoaffective disorder with obesity and acute encephalopathy, detention resident as well. Job ID: [id number] [facility]
--- NOTE | 2019-04-15 21:36 | PQF ---
SAP Radial Drill Press Set Up Operator Crystal Reports Winform THERESE Wiggins VINAYA KUMAR MD [id number] [id number] CLINICAL DOCUMENTATION CLARIFICATION FORM: POST DISCHARGE Addendum to original discharge summary date: ___Please send this query to Dr.Thada Don Chávez Late entry note date: __ DATE:04/15/2019 ATTN:DAVID PEREZ MD Please exercise your independent, professional judgment in responding to the clarification form. Clinical indicators are provided on the bottom of this form for your review Please check appropriate box(s): [ ] Acute Respiratory Failure: [ ] with Hypoxia[ ] with Hypercapnia [ ] Acute On Chronic Respiratory Failure: [ ] with Hypoxia [ ] with Hypercapnia [ ] Acute Respiratory Failure due to: (etiology) [ ] ARDS (Acute Respiratory Distress Syndrome) [ ] Chronic Respiratory Failure only [ ] with Hypoxia [ ] with Hypercapnia [ ] Hypoxia [ ] Other diagnosis [ ] Unable to determine In addition, please specify: Present on Admission (POA): [ ] Yes [ ] No [ ] Unable to determine For continuity of documentation, please document condition throughout progress notes and discharge summary. Thank You. CLINICAL INDICATORS - SIGNS / SYMPTOMS / LABS Respiration rate 03/23 10.59 26, 11.24 30, 11.54 28, 13.29 26, 14.41 24 - Documented in ED reports pg#4 O2 saturation 89% on 03/23 - Documented in ED reports pg#4 Respiratory assessment findings include respiratory effort, tachypneic and sign of distress in mild distress - Documented in ED reports pg#5 At time of arrival PT placed on 6L NC but was hypoxic to 89% PT placed on NRB 15L - Documented in ED reports pg#6 ABG pH 7.47 on 03/31 , ABG pO2 361.2 on 03/23 and ABG pCO2 42 on 03/23 - Documented in Laboratory Blood GAS Hypoxia 87% RA - Documented in ED reports pg#2 RISK FACTORS Sepsis ESRD DM HTN TREATMENTS: O2 delivery 5L nasal cannula - Documented in ED reports pg#4 (This form is maintained as a part of the permanent medical record) 2014 [employer]. All Rights Reserved [email or web address] [not provided] MTDD
== END 2019-03-31 18:53 | disposition expired | DRG 871 ==
LOC: ERS 10:53 → T4-B 13:55 → CCU 03-28 12:56 → T4-A 03-29 15:54
PROVIDERS: ADMIT Internal Medicine; ATTEND Internal Medicine
PROC: B24BZZ4 Ultrasonography of Heart with Aorta, Transesophageal (ICD-10-PCS; principal; 2019-03-28)
PROC: 5A1D70Z Performance of Urinary Filtration, Intermittent, Less than 6 Hours Per Day (ICD-10-PCS; 2019-03-28)
PROC: 5A1D70Z Performance of Urinary Filtration, Intermittent, Less than 6 Hours Per Day (ICD-10-PCS; 2019-03-28)
DX: A41.02 Sepsis due to Methicillin resistant Staphylococcus aureus (principal); N18.6 End stage renal disease; G93.41 Metabolic encephalopathy; I33.0 Acute and subacute infective endocarditis; I12.0 Hypertensive chronic kidney disease with stage 5 chronic kidney disease or end stage renal disease; E87.1 Hypo-osmolality and hyponatremia; N13.8 Other obstructive and reflux uropathy; N39.0 Urinary tract infection, site not specified; E11.22 Type 2 diabetes mellitus with diabetic chronic kidney disease; E78.5 Hyperlipidemia, unspecified; E87.5 Hyperkalemia; D64.9 Anemia, unspecified; Z99.2 Dependence on renal dialysis; Z86.711 Personal history of pulmonary embolism; Z79.899 Other long term (current) drug therapy; Z91.040 Latex allergy status; Z88.5 Allergy status to narcotic agent; Z79.4 Long term (current) use of insulin; E78.1 Pure hyperglyceridemia; F20.9 Schizophrenia, unspecified; K21.9 Gastro-esophageal reflux disease without esophagitis; N40.1 Benign prostatic hyperplasia with lower urinary tract symptoms; E87.6 Hypokalemia; I46.9 Cardiac arrest, cause unspecified; E66.9 Obesity, unspecified; Z68.37 Body mass index [BMI] 37.0-37.9, adult; I35.0 Nonrheumatic aortic (valve) stenosis; G47.30 Sleep apnea, unspecified; I48.91 Unspecified atrial fibrillation; M21.371 Foot drop, right foot; M54.5 Low back pain
CPT/HCPCS: 36415; 36416; 36430; 71045; 72148; 80048; 80053; 80069; 80202; 81003; 81015; 82805; 83605; 85025; 86850; 86900; 86901; 87040; 87077; 87086; 87149; 87186; 87804; 90935; 93005; 93306; 93312; 94760; 96365; 96366; 96367; C9113; G0257; J0696; J0712; J1815; J2704; J3370; J3480; J3490; J7050; P9016